=== PATIENT | female | born 1950 | race Caucasian/White ===

== ENCOUNTER 2019-02-16 13:15 | Inpatient (IN) | payer MEDICARE, OTHER ==
[~2019-02-16] VITALS: Ht 165.1 cm; Wt 100.7 kg
[2019-02-16] VITALS (7 sets, daily range): BP systolic 142–178; BP diastolic 59–94
[2019-02-16] MEDS ORDERED: SODIUM CHLORIDE 0.9% 1000ML 1,000 ML IV STA ×3 (13:24→16:31)
[2019-02-16 14:09] LABS: BASOPHILS # (AUTO) 0.1 (0.0-0.1); BASOPHILS % 0.4 % (0.0-1.0); EOSINOPHILS % 0.1 % (0.0-6.0); HEMATOCRIT 46.1 % (34.2-44.1); HEMOGLOBIN 15.5 g/dL (12.0-16.0); LYMPHOCYTES # (AUTO) 1.1 (1.0-3.2); LYMPHOCYTES % 6.7 % (18.0-39.1); MEAN CORPUSCULAR HEMOGLOBIN 28.9 pg (28-32); MEAN CORPUSCULAR HGB CONC 33.6 g/dL (31-35); MONOCYTES # (AUTO) 0.6 (0.2-0.8); MONOCYTES % 3.9 % (4.4-11.3); NEUTROPHILS # (AUTO) 14.2 (2.1-6.9); NEUTROPHILS % 88.3 % (38.7-80.0); RED BLOOD COUNT 5.36 x10e6/uL (3.6-5.1); RED CELL DISTRIBUTION WIDTH 15.1 % (11.7-14.4)
[2019-02-16 14:11] LABS: PLATELET COUNT 60 x10e3/uL (140-360)
[2019-02-16 14:13] LABS: INR 0.86; PROTHROMBIN TIME 12.2 seconds (11.9-14.5)
[2019-02-16 14:14] LABS: PARTIAL THROMBOPLASTIN TIME 24.7 seconds (23.8-35.5)
[2019-02-16 14:16] LABS: BILIRUBIN,URINE NEGATIVE (NEGATIVE); CLARITY,URINE SL CLOUDY (CLEAR); COLOR,URINE YELLOW (YELLOW); KETONES,URINE 1+ (NEGATIVE); LEUKOCYTE ESTERASE ,URINE NEGATIVE (NEGATIVE); NITRITE,URINE NEGATIVE (NEGATIVE); PROTEIN,URINE DIPSTICK TRACE (NEGATIVE); URINE UROBILINOGEN 0.2 mg/dL (0.2 - 1)
[2019-02-16 14:21] LABS: AMPHETAMINES SCREEN,URINE NEGATIVE (NEGATIVE); BENZODIAZEPINES SCREEN,URINE NEGATIVE (NEGATIVE); PHENCYCLIDINE SCREEN,URINE NEGATIVE (NEGATIVE)
[2019-02-16 14:22] LABS: ALBUMIN 3.2 g/dL (3.5-5.0); ANION GAP 20.3 mmol/L (8-16); CALCIUM 9.1 mg/dL (8.4-10.2); CREATININE, SERUM 1.16 mg/dL (0.57-1.11); POTASSIUM 4.3 mmol/L (3.5-5.1)
[2019-02-16 14:28] LABS: CREATINE KINASE MB 3.9 ng/mL (0-5.0)
[2019-02-16 14:30] LABS: BACTERIA,URINE FEW /HPF; EPITHELIAL CELLS,URINE FEW /LPF
[2019-02-16 14:31] LABS: AMORPHOUS SEDIMENT,URINE MODERATE (FEW); HYALINE CASTS 0-1 (0-1)
--- NOTE | 2019-02-16 14:38 | NUR ---
FAMILY AT SIDE AND HAS BEEN UPDATED.
--- NOTE | 2019-02-16 14:41 | NUR ---
TALKED TO CHARLENE IN LAB, SIXTO IS COMING FOR BC, LACTIC AND TYPE AND SCREEN FOR ADDED ON LABS.
[2019-02-16 14:47] LABS: ACETAMINOPHEN < 3 ug/mL (10-30); SALICYLATE < 5.0 mg/dL (0-30)
--- NOTE | 2019-02-16 14:59 | NUR ---
TALKED TO SIXTO IN THE LAB RE B.C./LACTIC/TYPE& SCREEN; WILL BE OVER TO COLLECT. DR. STALLINGS INFORMED
--- NOTE | 2019-02-16 15:22 | Diagnostic Imaging Report ---
EXAMINATION: CHEST SINGLE (PORTABLE) INDICATION: Altered mental status COMPARISON: None FINDINGS: LINES/TUBES:EKG leads overlie the chest. LUNGS:The lungs are moderately inflated. No focal consolidation or pulmonary edema. PLEURA:No pleural effusion or pneumothorax. MEDIASTINUM:The cardiomediastinal silhouette appears normal in size and shape. There is calcification of the coronary arteries, consistent with atherosclerotic disease. Chest BONES/SOFT TISSUES:No acute osseous injury. ABDOMEN:No free air under the diaphragm. IMPRESSION: No focal pneumonia or pulmonary edema. Signed by: Lurdes Leong MD on 02/16/2019 3:19 PM
--- NOTE | 2019-02-16 15:22 | Diagnostic Imaging Report ---
CT BRAIN WO HISTORY: Altered mental status COMPARISON: None. TECHNIQUE: Noncontrast axial scans were obtained from skull base to the vertex. Coronal and sagittal reconstructions obtained from the axial data. One or more of the following dose reduction techniques were used: Automated exposure control, adjustment of the mA and/or kV according to patient size, and/or utilization of iterative reconstruction technique. Beam hardening and motion artifacts obscure some details. DISCUSSION: Scalp/Skull: Unremarkable. Brain sulci: Appropriate for patient's age. Ventricles: Mild to moderate supratentorial ventriculomegaly is slightly out of proportion to sulcal prominence. The fourth ventricle is normal in size and configuration. Extra-axial spaces: No masses or fluid collections. Carotid siphon calcifications are present. Parenchyma: No abnormal densities. No mass, hemorrhage, or large vascular territory acute infarct. Dural sinuses: No abnormal densities. Sellar/Suprasellar region: Intact. Skull base: Intact. Incidental findings: None. IMPRESSION: 1. Mild to moderate supratentorial ventriculomegaly is slightly out of proportion to sulcal prominence. Correlate for communicating hydrocephalus. 2. Otherwise, no acute intracranial abnormalities. Signed by: Dr. Jas Garcia M.D. on 02/16/2019 3:19 PM
[2019-02-16] MEDS: METOPROLOL TARTRATE INJ 1 MG/ML VIAL IV PRN (16:07)
[2019-02-16] MEDS: ASPIRIN 300 MG SUPP PR SCH (16:09)
[2019-02-16] MEDS: PIPER-TAZ 3.375 GM 50 ML IV SCH ×2 (16:09→20:14)
--- NOTE | 2019-02-16 16:10 | NUR ---
DR. KIRK CAME TO SEE THE PT AND UPDATE SPOUSE RE POC/ORDRS
[2019-02-16] MEDS ORDERED: PANTOPRAZOLE 40 MG 10ML VIAL IV STA (16:31)
--- NOTE | 2019-02-16 16:36 | NUR ---
LACTIC 4.2; DR. STALLINGS INFORMED
[2019-02-16] MEDS ORDERED: DEXTROSE 50% SYRINGE 50 ML IV PRN (16:45)
[2019-02-16] MEDS: PANTOPRAZOLE 40 MG 10ML VIAL IV SCH ×2 (17:00→18:44)
--- OUTSIDE RECORDS SUMMARY | 2019-02-16 17:02 | XMS REPORT ---
[facility] Address Unknown Phone Unavailable Care Team Providers Care Precision Lens Technician Name Role Phone Campos STALLINGS Unavailable Unavailable Problems This patient has no known problems. Allergies, Adverse Reactions, Alerts This patient has no known allergies or adverse reactions. Medications This patient has no known medications. Results Test Description Test Time Test Comments Text Results Atomic Results Result Comments CHEST SINGLE (PORTABLE) 2019-02-16 15:18:00 [place] [address] Patient Name: TRAN GUAN MR #: [id number] : 1950 Age/Sex: 68/F Req #: [id number] Adm Physician: Ordered by: TOMAS STALLINGS MD Report #: [id number] Location: ER Room/Bed: Procedure: [id number] DX/CHEST SINGLE (PORTABLE) Exam Date: 02/16/19 Exam Time: 1350 REPORT STATUS: Signed EXAMINATION: CHEST SINGLE (PORTABLE) INDICATI ON: Altered mental status COMPARISON: None FINDINGS: LINES/TUBES:EKG leads overlie the chest. LUNGS:The lungs are moderately inflated. No focal consolidation or pulmonary edema. PLEURA:No pleural effusion or pneumothorax. MEDIASTINUM:The cardiomediastinal silhouette appears normal in size and shape. There is calcification of the coronary arteries, consistent with atherosclerotic disease. Chest BONES/SOFT TISSUES:No acute osseous injury. ABDOMEN:No free air under the diaphragm. IMPRESSION: No focal pneumonia or pulmonary edema. Signed by: Brent Merritt MD on 02/16/2019 3:19 PM Dictated By: BRENT MERRITT MD 18 Transcribed By: KOREY on 02/16/191518 COPY TO: TOMAS STALLINGS MD CT BRAIN WO 2019-02-16 15:16:00 [place] [address] Patient Name: TRAN GUAN MR #: [id number] : 1950 Age/Sex: 68/F Req #: [id number] Adm Physician: Ordered by: TOMAS STALLINGS MD Report #: [id number] Location: ER Room/Bed: Procedure: [id number] CT/CT BRAIN WO Exam Date: 02/16/19 Exam Time: 1350 REPORT STATUS: Signed CT BRAIN WO HISTORY: Altered mental status COMPARISON: None. TECHNIQUE: Noncontrast axial scans were obtained from skull base to the vertex. Coronal and sagittal reconstructions obtained from the axial data. One or more of the following dose reduction techniques were used: Automated exposure control, adjustment of the mA and/or kV according to patient size, and/or utilization of iterative reconstruction technique. Beam hardening and motion artifacts obscure some details. DISCUSSION: Scalp/Skull: Unremarkable. Brain sulci: Appropriate for patient's age. Ventricles: Mild to moderate supratentorial ventriculomegaly is slightly out of proportion to sulcal prominence. The fourth ventricle is normal in size and configuration. Extra-axial spaces: No masses or fluid collections. Carotid siphon calcifications are present. Parenchyma: No abnormal densities. No mass, hemorrhage, or large vascular territory acute infarct. Dural sinuses: No abnormal densities. Sellar/Suprasellar region: Intact. Skull base: Intact. Incidental findings: None. IMPRESSION: 1. Mild to moderate supratentorial ventriculomegaly is slightly out of proportion to sulcal prominence. Correlate for communicating hydrocephalus. 2. Otherwise, no acute intracranial abnormalities. Signed by: Dr. Jas Garcia M.D. on 02/16/2019 3:19 PM Dictated By: JAS GARCIA MD 18 Transcribed By: KOREY on 02/16/191518 COPY TO: TOMAS STALLINGS MD
[2019-02-16] MEDS: SODIUM CHLORIDE 0.9% 1000ML 1,000 ML IV SCH (17:15)
--- NOTE | 2019-02-16 17:35 | Diagnostic Imaging Report ---
EXAM: CT Abdomen and Pelvis WITH intravenous contrast INDICATION: Altered mental status, urinary tract infection, leukocytosis COMPARISON: None. TECHNIQUE: Abdomen and pelvis were scanned utilizing a multidetector helical scanner from the lung base to the pubic symphysis after administration of IV contrast. Coronal and sagittal reformations were obtained. Routine protocol was performed. Scan was performed during portal venous phase. IV CONTRAST: 100mL of Isovue 370 ORAL CONTRAST: Water RADIATION DOSE: Total DLP: 840.7 mGy*cm Dose modulation, iterative reconstruction, and/or weight based adjustment of the mA/kV was utilized to reduce the radiation dose to as low as reasonably achievable. FINDINGS: LOWER THORAX: Normal. HEPATOBILIARY: No focal hepatic lesions. No biliary ductal dilatation status post cholecystectomy. SPLEEN: No splenomegaly. PANCREAS: Diffuse peripancreatic fat stranding most notably at the pancreatic head and uncinate process. No hypoenhancement of pancreatic parenchyma. No focal mass or ductal dilation. No focal fluid collection. ADRENALS: No adrenal nodules. KIDNEYS/URETERS: No hydronephrosis, stones, or solid mass lesions. PELVIC ORGANS/BLADDER: Murillo catheter in the decompressed bladder. PERITONEUM / RETROPERITONEUM: No free air or fluid. LYMPH NODES: No lymphadenopathy. VESSELS: Scattered atherosclerotic calcifications of the nonaneurysmal abdominal aorta and major branches. GI TRACT: Diffuse wall thickening of the cecum and ascending colon with mild adjacent inflammatory changes. No bowel obstruction. BONES AND SOFT TISSUES: No acute osseous injury. No suspicious lytic or blastic lesions. Moderate degenerative changes of the visualized spine. IMPRESSION: Acute pancreatitis with no evidence of parenchymal necrosis or associated fluid collection. Diffuse wall thickening of the ascending colon and cecum compatible with colitis. Signed by: Lurdes Leogn MD on 02/16/2019 5:32 PM
[2019-02-16] MEDS: METRONIDAZOLE 500MG/NS 100ML 100 ML IV SCH (18:42)
[2019-02-16 18:44] LABS: AMYLASE 13 U/L (25-125); LIPASE 10 U/L (8-78)
[2019-02-16] MEDS ORDERED: INFLUENZA VIRUS VAC SPLIT INJ 0.5 ML SYR IM SCH (19:41)
[2019-02-16] MEDS ORDERED: PNEUMOCOCCAL VACCINE POLYVALENT 23 MCG/0.5 ML VIAL IM SCH (19:41)
[2019-02-16] MEDS ORDERED: IOPAMIDOL 370 MG/ML 200 ML INFUS..BTL INJ ONE (20:26)
[2019-02-16] MEDS ORDERED: SODIUM CHLORIDE 0.9% 50ML 50 ML ONE (20:26)
[2019-02-16 20:47] LABS: CREATINE KINASE MB 6.4 ng/mL (0-5.0)
[2019-02-16] MEDS: INSULIN LISPRO 100 UNIT/1 ML 3ML VIAL SQ SCH (21:14)
--- NOTE | 2019-02-16 21:20 | NUR ---
Dr. Brewster paged regarding BG of 412 and pt's agitation. Awaiting call back
[2019-02-16] MEDS ORDERED: LORAZEPAM INJ 2 MG/ML VIAL IV PRN (21:45)
--- NOTE | 2019-02-16 21:50 | NUR ---
Dr. Brewster returned page, new meds ordered see eMAR. Routine consult for Dr. Baig ordered also.
[2019-02-16] MEDS ORDERED: LANTUS 3ML100 UNITS/ SC (21:53)
[2019-02-16] MEDS ORDERED: HUMALOG100 UNIT/3 SC (21:54)
[2019-02-16] MEDS ORDERED: MORPHINE SULFAT30 M2 PO (21:54)
[2019-02-16] MEDS ORDERED: MULTI-VITAMIN1 EACH (21:54)
[2019-02-16] MEDS ORDERED: ASPIR 8181 MG PO (21:54)
[2019-02-16] MEDS ORDERED: LEVOTHYROXINE75 MCG PO (21:54)
[2019-02-16] MEDS ORDERED: MS CONTIN30 MG PO (21:54)
[2019-02-16] MEDS ORDERED: TIZANIDINE HCL4 MG PO (21:54)
[2019-02-16] MEDS ORDERED: AMITRIPTYLINE H50 MG PO (21:54)
[2019-02-16] MEDS ORDERED: TRADJENTA5 MG PO (21:54)
[2019-02-16] MEDS ORDERED: GABAPENTIN400 MG PO (21:54)
[2019-02-16] MEDS ORDERED: HUMALOG100 UNIT/1 SC (21:54)
[2019-02-16] MEDS ORDERED: CYMBALTA30 MG PO (21:54)
[2019-02-16] MEDS: INSULIN GLARGINE 100 UNITS/ML VIAL SQ SCH (21:57)
--- NOTE | 2019-02-16 22:52 | Consultation ---
DATE OF CONSULTATION: 02/16/2019 Cardiology Consultation INDICATION: Abnormal EKG. HISTORY OF PRESENT ILLNESS: Ms. Quevedo is a 68-year-old female, who was brought in by her for altered mental status. She is unable to provide any history. Per her , she has had no cardiac complaints. She had a cardiac evaluation possibly last year [facility], which according to the family was normal. Currently, at the time for admission to the emergency room, she has altered mental status. Temperature 99.1, heart rate 105. EKG shows marked ST depression with a possibility of acute myocardial infarction. I have been consulted to assess the same. Again, the patient is unable to provide any history. She appears to be altered with dehydration, hyperglycemia, and possible sepsis. PAST MEDICAL HISTORY: Listed above. SOCIAL HISTORY: Unobtainable. REVIEW OF SYSTEMS: Unobtainable. ALLERGIES: NO KNOWN DRUG ALLERGIES. PHYSICAL EXAMINATION: VITAL SIGNS: Afebrile, heart rate 101, blood pressure 132/74. CARDIOVASCULAR: Regular rhythm. Systolic murmur. LUNGS: Occasional rhonchi bilaterally. ABDOMEN: Soft. LABORATORY STUDIES: Electrocardiogram shows sinus rhythm with marked ST depression. No evidence for acute myocardial infarction. Creatinine is 1.1, blood sugar 389. Troponin 0.112. BNP 37.5. Hemoglobin is 15.5, WBC count 16,100. Drug screen is negative except for opiates. Brain CT and chest x-ray are pending. ASSESSMENT: Eyy-YO-gnwcdnb elevation myocardial infarction. RECOMMENDATIONS: The patient's cardiac enzymes are negative. However, EKG shows marked ST depression. At this point, beta-kris will be initiated along with an aspirin and statin. Recheck of cardiac enzymes. She will require ischemic evaluation prior to discharge. MD NEHAL Marino/DEEDEE /[id number]
--- NOTE | 2019-02-16 23:02 | History and Physical ---
Covering for Dr. Barrera. HISTORY OF PRESENT ILLNESS: Ms. Laurent is a 68-year-old female. History was obtained through her done at bedside. The patient is confused and unable to give me any history. Apparently, the patient is wheelchair bound. She can walk a little, but she is most of the time in a wheelchair because of her spinal cord injury and she takes morphine for that. She has history of diabetes. As per until yesterday she was doing fine. This morning at 5 in the morning, she started with vomiting, diarrhea, and she started getting confused. The confusion got worse during the morning, so called 911 and she was brought to the emergency room. As per her , she had a similar episode like a year ago with confusion. At that time, she had an infection. PAST MEDICAL HISTORY: She has history of diabetes as per . ALLERGIES: NO KNOWN DRUG ALLERGIES. PAST SURGICAL HISTORY: She had spine and cervical surgery, hysterectomy, and cholecystectomy. SOCIAL HISTORY: She does not smoke and she does not drink. She lives at home with her . MEDICATIONS: The patient is taking morphine for spinal cord injury. PHYSICAL EXAMINATION: GENERAL: Today, she is confused. She screams, she wants somebody to help her. VITAL SIGNS: Temperature is 99.1, blood pressure 132/74. HEART: Regular rate. LUNGS: Poor inspiratory effort. ABDOMEN: Soft. LABORATORY DATA: On the blood work, white count is 16.09, hematocrit 46.1, hemoglobin 15.5. Potassium 4.3, creatinine 1.16, glucose was 398. Opiates came back positive in the toxicology examination. Urine has no blood cells. Urine culture is pending. Head CT shows epjj-al-muevlzut supratentorial ventriculomegaly, slightly out of proportion to sulcal prominence, otherwise no acute findings. Chest x-ray shows no focal pneumonia or pulmonary edema. ASSESSMENT: 1. Vomiting, diarrhea, and leukocytosis. 2. Concerning for sepsis, etiology is not very clear. 3. Abnormal EKG, already seen by Dr. Talley. 4. Diabetes type 2 with hyperglycemia. 5. History of spinal cord injury, on morphine. PLAN: At the present time, she was already seen by heel stainer. We are going to get Infectious Disease consult with Dr. Piper. The patient was started on Zosyn. She is receiving a dose of Zosyn today. We are awaiting for IMCU bed for her. She may need further workup if her mental status does not improve. She is going to need IV fluids. She is going to need aggressive treatment with insulin. The overall prognosis of the patient is guarded. All this was discussed with . All questions were answered to satisfaction. MD RACIEL Menendez/MODL /[id number]
[2019-02-17] VITALS (26 sets, daily range): BP systolic 96–189; BP diastolic 46–104
[2019-02-17] MEDS: METOPROLOL TARTRATE INJ 1 MG/ML VIAL IV PRN ×2 (01:21→21:34)
[2019-02-17] MEDS: PIPER-TAZ 3.375 GM 50 ML IV SCH ×2 (02:10→09:07)
[2019-02-17] MEDS: SODIUM CHLORIDE 0.9% 1000ML 1,000 ML IV SCH ×2 (02:14→19:58)
[2019-02-17 02:33] LABS: CREATINE KINASE MB 4.9 ng/mL (0-5.0)
[2019-02-17 04:59] LABS: BASOPHILS % 0.2 % (0.0-1.0); HEMATOCRIT 47.7 % (34.2-44.1); LYMPHOCYTES # (AUTO) 1.4 (1.0-3.2); LYMPHOCYTES % 6.9 % (18.0-39.1); MEAN CORPUSCULAR HEMOGLOBIN 28.7 pg (28-32); MEAN CORPUSCULAR HGB CONC 33.5 g/dL (31-35); MEAN CORPUSCULAR VOLUME 85.6 fL (81-99); MONOCYTES # (AUTO) 1.1 (0.2-0.8); MONOCYTES % 5.2 % (4.4-11.3); NEUTROPHILS # (AUTO) 17.8 (2.1-6.9); NEUTROPHILS % 86.9 % (38.7-80.0); PLATELET COUNT 58 x10e3/uL (140-360); RED BLOOD COUNT 5.57 x10e6/uL (3.6-5.1); RED CELL DISTRIBUTION WIDTH 15.9 % (11.7-14.4)
[2019-02-17] MEDS: ONDANSETRON HCL INJ 2MG/ML 2ML 2 MG/ML VIAL IV PRN (05:09)
[2019-02-17 05:22] LABS: ALBUMIN 2.5 g/dL (3.5-5.0); ALBUMIN/GLOBULIN RATIO 0.8 (0.8-2.0); ANION GAP 13.6 mmol/L (8-16); CALCIUM 7.8 mg/dL (8.4-10.2); CHOL/HDL RATIO 5.8 (3.0-3.6); CREATININE, SERUM 1.33 mg/dL (0.57-1.11); POTASSIUM 3.6 mmol/L (3.5-5.1)
[2019-02-17] MEDS: INSULIN LISPRO 100 UNIT/1 ML 3ML VIAL SQ SCH (05:42)
[2019-02-17] MEDS: METRONIDAZOLE 500MG/NS 100ML 100 ML IV SCH ×4 (05:47→17:54)
[2019-02-17] MEDS ORDERED: ACETAMINOPHEN 1000 MG/100 ML IV PRN (06:00)
[2019-02-17] MEDS ORDERED: ACETAMINOPHEN 1000 MG/100 ML 100 ML IV ONE (06:09)
--- NOTE | 2019-02-17 06:11 | NUR ---
Spoke to Dr. Brewster regarding pt's temp of 103.2 and critical blood sugar level. Insulin gtt, IV tylenol ordered. Ordered to notify Dr. Piper and consult Dr. Vernon Anderson for acute pancreatitis.
--- NOTE | 2019-02-17 06:17 | NUR ---
06:[address] Piper. Awaiting call back. 06:[address] Vernon Anderson 06:[address] Baig
[2019-02-17] MEDS: INSULIN REGULAR, HUMAN 3ML VL 100 UNIT in SODIUM CHLORIDE 0.9% 100 ML 100 ML IV SCH ×2 (06:30)
[2019-02-17] MEDS ORDERED: HEPARIN SOD (PORCINE) 5,000 UNIT/ML VIAL SC SCH (09:00)
[2019-02-17] MEDS: ASPIRIN 300 MG SUPP PR SCH (09:07)
[2019-02-17] MEDS: PANTOPRAZOLE 40 MG 10ML VIAL IV SCH ×2 (09:07→17:59)
[2019-02-17 09:53] LABS: ABG HCO3 17 mmol/L (23-28); ABG PCO2 23 mmHg (41-51); ABG PH 7.49 (7.31-7.41); ABG PO2 72 mmHg (80-105)
[2019-02-17 10:07] LABS: AMYLASE 19 U/L (25-125); LIPASE 21 U/L (8-78)
--- NOTE | 2019-02-17 10:09 | Progress Note ---
DATE: 02/17/2019 Cardiology Progress Note SUBJECTIVE: Cannot obtain review of systems as the patient is confused with her eyes closed, moaning in bed, no acute events. OBJECTIVE: VITAL SIGNS: Temperature is 103.3, heart rate is 114, blood pressure is 164/81, respirations are 25, oxygen saturation is 95% on room air. GENERAL: She is an ill-appearing woman, who is agitated and moaning. CARDIOVASCULAR: She is tachycardic. No murmurs. Regular rhythm. LUNGS: Clear to auscultation. ABDOMEN: Soft, mildly distended, nontender. EXTREMITIES: Trace edema. CARDIOVASCULAR MEDICATIONS: Reviewed. LABORATORY DATA: Reviewed. White blood cell count is 20, hemoglobin is 16, creatinine is 1.3, glucose is 466. Lactic acid is 2.9. Troponin is 0.128. Triglycerides are 207. IMPRESSION: 1. Abnormal electrocardiogram. 2. Leukocytosis. 3. Sepsis. 4. Acute kidney injury. 5. Hyperglycemia with acidosis. 6. Lactic acidosis. 7. Hyperlipidemia. 8. Altered mental status. RECOMMENDATIONS: From a cardiovascular standpoint we will check a 2D echocardiogram once her heart rate is better controlled. Continue sepsis and infectious treatment per primary team. We will need better glucose control. The patient likely will need an ischemic evaluation when she is more stable. Inderjit Hoffmann DO BM/MODL /[id number]
[2019-02-17 10:14] LABS: CREATINE KINASE MB 2.6 ng/mL (0-5.0)
--- NOTE | 2019-02-17 11:17 | Diagnostic Imaging Report ---
Chest, 1 view, 02/17/2019. History: PICC placement. Comparison: 02/16/2019. Findings: The cardiomediastinal silhouette and pulmonary vasculature are within normal limits for a portable exam. There is no focal consolidation or pleural effusion. A new right upper extremity PICC terminates near the cavoatrial junction. Cervical fusion hardware is again noted. There are no acute osseous or soft tissue abnormalities. Impression: No acute cardiopulmonary abnormality. Right upper extremity PICC in adequate position. Signed by: Joe Antony on 02/17/2019 11:14 AM
--- NOTE | 2019-02-17 11:18 | NUR ---
PICC line placed and verified. Dr Piper to bedside conversing with patient's .
--- NOTE | 2019-02-17 11:50 | Progress Note ---
DATE: 02/17/2019 SUBJECTIVE: Ms. Quevedo is a 68-year-old female with history of diabetes, wheelchair bound due to spinal cord injury where she is using morphine for the pain. As per yesterday morning at 5:00 in the morning, she started with vomiting and diarrhea and started getting confused, so called the ambulance and she was brought to the emergency room. PHYSICAL EXAMINATION: GENERAL: Today, she is still confused like yesterday. She is not following any commands. She is screaming for help. VITAL SIGNS: Temperature is 103.3, blood pressure is 164/81. HEART: Regular rate. LUNGS: Poor inspiratory effort. ABDOMEN: Soft. EXTREMITIES: Lower extremity mild edema. LABORATORY DATA: On the blood work white count went up to 20.51, hemoglobin 16, hematocrit is 47.7. Glucose 396, this morning 456. Lactic acid is 2.9. Toxicology was positive for opiates. Blood cultures and urine culture so far no growth. Blood cultures are pending. Chest x-ray did not find any acute findings and head CT either. Abdominal and pelvic CT shows acute pancreatitis with no evidence of parenchymal necrosis or associated fluid collection. Diffuse wall thickening of the ascending colon and cecum compatible with colitis. ASSESSMENT: 1. Sepsis secondary to acute pancreatitis. 2. Colitis. 3. Diabetes type 2 with hypoglycemia. 4. History of spinal cord injury. 5. Altered mental status due to metabolic encephalopathy. PLAN: The plan at present time is to keep the patient n.p.o., IV fluids. She was started on insulin drip. She is on broad-spectrum IV antibiotics. She is ICU status. Consult was requested with Critical Care, GI and Infectious Disease. Continue to monitor mental status. Continue to monitor electrolytes and white count as well as blood sugar checkups. The overall prognosis of the patient is guarded. All this was discussed with at bedside. All questions were answered to satisfaction. I spent more than 35 minutes examining patient, reviewing overnight event, lab results, x-rays and discussing the plan of care with her at bedside. MD RACIEL Menendez/MODL /[id number]
--- NOTE | 2019-02-17 12:25 | Consultation ---
DATE OF CONSULTATION: 02/17/2019 REASON FOR CONSULTATION: Altered mental status and fever. HISTORY OF PRESENT ILLNESS: This patient, who is a 68-year-old female, who was brought in by her with altered mental status. Her unfortunately is not here. I was asked to see her urgently. I came to see her within the hour I received the phone call. The patient is currently confused. Does not provide any meaningful information, but with fever. According to the record, she came with altered mental status. She had temperature of 99.1 and heart rate 105. EKG showed ST depression with possibility of acute myocardial infarction. Cardiology seen the patient and she was diagnosed with sca-ND-kyexmoo elevation with myocardial infarction. Apparently, she was fine till yesterday. She can walk a little, but she needs a wheelchair because she had spinal cord injury. She takes morphine. She was doing fine till yesterday until 5 in the morning when she vomited, diarrhea, became confused, and brought here. PAST MEDICAL HISTORY: Cervical spine surgery, hysterectomy, cholecystectomy, and diabetes mellitus. PAST SURGICAL HISTORY: As above. ALLERGIES: NKA. SOCIAL HISTORY: No smoking, drug abuse, or alcohol abuse. FAMILY HISTORY: Could not be obtained. REVIEW OF SYSTEMS: Could not be obtained. Confused. There is no vomiting since she came here. I reviewed all the notes. LABORATORY DATA: Also all reviewed. Her blood culture is still pending. Her urine culture is still pending. Her white count on admission was 16.09 came up to 20.5, hemoglobin 15, and hematocrit 46. Her sodium is 139, potassium 3.6, chloride 111, her creatinine 1.33, and her glucose 466. Lactic acid 2.09. MEDICATION LIST: She is currently on aspirin, piperacillin/tazobactam, acetaminophen, and IV metronidazole. She had the CT of the abdomen and pelvis, which showed acute pancreatitis, but no evidence of piecemeal necrosis. Diffuse wall thickening of the ascending colon compatible with colitis. She had CT of the brain showed possibility communicating hydrocephalus, doom-he-wkzqlfkl. Chest x-ray was no infiltrate. PHYSICAL EXAMINATION: GENERAL: She is confused. VITAL SIGNS: Stable. Temperature 103.2. HEENT: Normocephalic. Not icteric. NECK: Supple. CHEST: Few crackles bilateral. HEART: S1 and S2 with no murmurs. ABDOMEN: Soft. Bowel sounds present. No tenderness. EXTREMITIES: No edema. SKIN: No rash. IMPRESSION: 1. Sepsis. 2. Altered mental status with fever. While this could be due to sepsis, the possibility of encephalitis/meningitis need to be ruled out. Recommend to do stat LP. 3. Myocardial infarction, on admission, could be due to the stress of all the sepsis. 4. Pancreatitis. 5. Colitis. I would recommend to put the patient on Rocephin 1 g q.12, vancomycin 1 g q.12, acyclovir, and ampicillin. Obtain blood cultures. Obtain urine cultures. Obtain LP. We will send for cell count and differential, protein, glucose, herpes simplex by PCR, culture sensitivity, bacterial antigen, and viral PCR if possible. Recheck CBC. Recheck chem panel. Recheck amylase and lipase. N.p.o. Supportive care. We will follow with you. MD AMANDA Perez/DEEDEE /[id number]
[2019-02-17] MEDS ORDERED: LIDOCAINE HCL 1% LOCAL INJ 20 ML VIAL ONE (12:29)
[2019-02-17] MEDS ORDERED: ACYCLOVIR SODIUM INJ 500 MG in SODIUM CHLORIDE 0.9% 100 ML IV ONE (13:00)
[2019-02-17] MEDS: CEFTRIAXONE SOD 2 GM/NS 100 ML 100 ML IV SCH ×2 (13:28→23:02)
[2019-02-17] MEDS ORDERED: LORAZEPAM INJ 2 MG/ML VIAL IV ONE (13:50)
[2019-02-17] MEDS: AMPICILLIN SOD 2 GM/NS 100ML 100 ML IV SCH ×2 (13:54→18:13)
[2019-02-17] MEDS ORDERED: ACYCLOVIR SODIUM 750 MG in SODIUM CHLORIDE 0.9% 250ML 250 ML IV SCH (14:00)
--- NOTE | 2019-02-17 14:10 | Diagnostic Imaging Report ---
Fluoroscopic-guided lumbar puncture. History: Altered mental status. Switchboard Receptionist: Dr. Antony. Medication: None. Anesthesia: 5 cc of 1% lidocaine without epinephrine. Contrast: None. Fluoro time: 0.25 min. Dose: 54.4 mGy (EZEQUIEL) Specimen: 3.5 cc of bloody CSF. Discussion: Procedure was limited due to patient inability to remain immobile. After informed consent was obtained, the patient's back was prepped and draped in a sterile fashion. The skin was anesthetized with 1% lidocaine without epinephrine. Using fluoroscopic guidance, a 22 gauge 3.5 inch long spinal needle was advanced into the spinal canal at the level of L5-S1. Bloody slightly clearing CSF was visualized and obtained and sent to the laboratory for studies. Only a small amount of fluid could be obtained before the patient dislodged the needle with constant motion. Repeat entry into the thecal sac could not be obtained. IMPRESSION: Limited fluoroscopic guided LP. Signed by: Joe Antony on 02/17/2019 2:06 PM
[2019-02-17 14:57] LABS: TOTAL PROTEIN,CSF 357.9 mg/dL (15-40)
--- NOTE | 2019-02-17 15:47 | Consultation ---
DATE OF CONSULTATION: 02/17/2019 Pulmonary Consultation The patient of Dr. Barrera, Dr. Brewster, Dr. Scotty Anderson, Dr. Piper, and Dr. Baig. HISTORY OF PRESENT ILLNESS: Unfortunate 68-year-old diabetic, admitted with vomiting and diarrhea, altered mental status. She became febrile in the hospital as high as 103.3. She has a history of peripheral neuropathy, history of a spinal cord injury in 1998 related to surgical procedure according to . She has been diabetic for 5 years. Has had heel ulcers in the past, which have healed. She has a history of gastroesophageal reflux. 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 She is a well-developed white female, moaning, not interactive. ALLERGIES: NO KNOWN ALLERGIES. MEDICATIONS: Include aspirin, insulin, duloxetine, gabapentin, Levoxyl, morphine, multivitamins, tizanidine, Elavil, and Tradjenta. PAST SURGICAL HISTORY: She has had appendectomy, gallbladder surgery, hysterectomy, back surgery, and breast biopsy. SOCIAL HISTORY: Nonsmoker. 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 FAMILY HISTORY: Positive for coronary artery disease and diabetes. PHYSICAL EXAMINATION: VITAL SIGNS: Blood pressure 164/80, temperature 103.3, pulse 115, and respirations 21. GENERAL: Confused and moaning. NECK: Supple. LUNGS: Clear. HEART: Regular rhythm. ABDOMEN: Tender in the right upper quadrant. EXTREMITIES: Nonedematous. IMPRESSION: Pancreatitis, colitis, possible ischemic gut, possible toxicity to unknown Indian group, which she takes for weight loss, which has caused diarrhea. Born in [place]. Lives all life in [place]. No foreign travel recently. We will check stool studies. This discussed was with ID. Repeat pancreatic enzymes, which were normal though. CT of the abdomen suggested pancreatitis and colitis. There is no discussion of pancreatic necrosis. Chest x-ray appears clear. CT suggested possibility of normal pressure hydrocephalus. Neurology opinion is pending. Cecum and ascending colon, suggestion of inflammation consistent with colitis. Thank you for this kind referral. MD VIOLETA Art/MODL /[id number]
[2019-02-17] MEDS: VANCOMYCIN 1GM/NS 250 ML 250 ML IV SCH (16:03)
[2019-02-17] MEDS: ACYCLOVIR 200 MG CAP PO SCH ×2 (17:00→19:55)
[2019-02-17] MEDS ORDERED: SODIUM CHLORIDE 0.9% 1000ML 1,000 ML ONE (19:00)
[2019-02-17] MEDS ORDERED: ZIPRASIDONE 20 MG VIAL IM PRN ×2 (19:30→22:30)
[2019-02-17] MEDS ORDERED: WATER STERILE 10 ML VIAL INJ PRN (19:45)
[2019-02-17] MEDS: INSULIN GLARGINE 100 UNITS/ML VIAL SQ SCH (19:55)
--- NOTE | 2019-02-17 20:10 | NUR ---
Page out to Dr. Piper regarding LP, awaiting call back
[2019-02-17] MEDS: ACYCLOVIR SODIUM IV SCH (21:32)
[2019-02-17] MEDS: SODIUM CHLORIDE 0.9% IV SCH (21:32)
--- NOTE | 2019-02-17 22:39 | NUR ---
Dr. Piper returned page, ordered to repeat LP in am and see if Dr. Baig would perform it. If not, consult interventional radiology.
[2019-02-18] VITALS (19 sets, daily range): BP systolic 124–181; BP diastolic 44–104
[2019-02-18] MEDS: ONDANSETRON HCL INJ 2MG/ML 2ML 2 MG/ML VIAL IV PRN (00:15)
[2019-02-18] MEDS: METRONIDAZOLE 500MG/NS 100ML 100 ML IV SCH ×4 (00:15→19:15)
[2019-02-18] MEDS: AMPICILLIN SOD 2 GM/NS 100ML 100 ML IV SCH ×5 (00:15→23:46)
[2019-02-18] MEDS: VANCOMYCIN 1GM/NS 250 ML 250 ML IV SCH ×2 (02:39→16:00)
[2019-02-18] MEDS: INSULIN REGULAR, HUMAN 3ML VL 100 UNIT in SODIUM CHLORIDE 0.9% 100 ML 100 ML IV SCH ×2 (04:02)
[2019-02-18] MEDS: ACYCLOVIR 200 MG CAP PO SCH ×5 (04:25→20:16)
[2019-02-18 05:26] LABS: BASOPHILS % 0.2 % (0.0-1.0); EOSINOPHILS # (AUTO) 0.1 (0.0-0.4); EOSINOPHILS % 0.4 % (0.0-6.0); HEMATOCRIT 36.7 % (34.2-44.1); LYMPHOCYTES # (AUTO) 1.6 (1.0-3.2); LYMPHOCYTES % 9.2 % (18.0-39.1); MEAN CORPUSCULAR HEMOGLOBIN 28.5 pg (28-32); MEAN CORPUSCULAR HGB CONC 32.4 g/dL (31-35); MEAN CORPUSCULAR VOLUME 87.8 fL (81-99); MONOCYTES # (AUTO) 1.1 (0.2-0.8); MONOCYTES % 6.4 % (4.4-11.3); NEUTROPHILS # (AUTO) 14.8 (2.1-6.9); NEUTROPHILS % 83.2 % (38.7-80.0); PLATELET COUNT 51 x10e3/uL (140-360); RED BLOOD COUNT 4.18 x10e6/uL (3.6-5.1); RED CELL DISTRIBUTION WIDTH 16.5 % (11.7-14.4)
[2019-02-18 05:27] LABS: HEMOGLOBIN 11.9 g/dL (12.0-16.0)
[2019-02-18] MEDS: ACYCLOVIR SODIUM IV SCH ×3 (05:30→20:39)
[2019-02-18] MEDS: SODIUM CHLORIDE 0.9% IV SCH ×3 (05:30→20:39)
[2019-02-18 05:42] LABS: INR 1.08; PROTHROMBIN TIME 14.5 seconds (11.9-14.5)
[2019-02-18 05:43] LABS: PARTIAL THROMBOPLASTIN TIME 26.4 seconds (23.8-35.5)
[2019-02-18 05:51] LABS: AMYLASE 27 U/L (25-125); LIPASE 38 U/L (8-78)
[2019-02-18 05:53] LABS: ALBUMIN 2.4 g/dL (3.5-5.0); ALBUMIN/GLOBULIN RATIO 0.9 (0.8-2.0); CREATININE, SERUM 1.08 mg/dL (0.57-1.11)
[2019-02-18] MEDS: SODIUM CHLORIDE 0.9% 1000ML 1,000 ML IV SCH (06:26)
[2019-02-18 06:29] LABS: ANION GAP 15.4 mmol/L (8-16)
[2019-02-18 06:31] LABS: POTASSIUM 2.4 mmol/L (3.5-5.1)
--- NOTE | 2019-02-18 06:36 | NUR ---
Page out to Dr. Brewster regarding critical potassium. Awaiting call back.
[2019-02-18] MEDS: WATER STERILE 10 ML VIAL INJ PRN ×2 (07:31→13:30)
[2019-02-18] MEDS: LORAZEPAM INJ 2 MG/ML VIAL IV PRN ×2 (07:31→13:30)
[2019-02-18] MEDS: ZIPRASIDONE 20 MG VIAL IM PRN ×2 (07:31→13:30)
--- NOTE | 2019-02-18 07:55 | NUR ---
Paged Dr. Maier about potassium level
[2019-02-18 08:43] LABS: WBC,FECAL (FECAL LACTOFERRIN) POSITIVE (NEGATIVE)
[2019-02-18 10:41] LABS: C DIFFICILE TOXIN A&B AMP PROB NEGATIVE (NEGATIVE)
[2019-02-18] MEDS: ASPIRIN 300 MG SUPP PR SCH (10:44)
[2019-02-18] MEDS: PANTOPRAZOLE 40 MG 10ML VIAL IV SCH ×2 (10:45→18:29)
[2019-02-18] MEDS ORDERED: POTASSIUM CHLORIDE 20MEQ/100ML 200 ML IV ONE (11:15)
[2019-02-18] MEDS ORDERED: DEXMEDETOMIDINE HCL 200 MCG in SODIUM CHLORIDE 0.9% 50ML 48 ML IV PRN (11:15)
[2019-02-18] MEDS: DEXMEDETOMIDINE 200MCG/NS 50ML 50 ML IV PRN ×3 (11:25→18:14)
[2019-02-18] MEDS: D5.45%NS/KCL 20MEQ 1,000 ML IV SCH ×2 (12:39→22:11)
[2019-02-18] MEDS: CEFTRIAXONE SOD 2 GM/NS 100 ML 100 ML IV SCH ×2 (12:40→23:05)
[2019-02-18] MEDS ORDERED: POTASSIUM CHLORIDE 20MEQ/100ML 300 ML IV ONE (14:15)
--- NOTE | 2019-02-18 14:48 | Progress Note ---
DATE: 02/18/2019 Cardiology Progress Note SUBJECTIVE: Remains very confused and somnolent, unresponsive. OBJECTIVE: VITAL SIGNS: Temperature afebrile, pulse 83, respiratory rate 23, blood pressure 156/76, saturating 96% on room air. GENERAL: Middle-aged female, confused and somnolent. CARDIOVASCULAR: Regular rate and rhythm. No murmurs, rubs, or gallops. LUNGS: Clear to auscultation anteriorly. ABDOMEN: Soft, nontender, nondistended. NEURO AND PSYCH: Alert and oriented to person, place, and time. Normal affect. INPATIENT MEDICATIONS: Reviewed. LABORATORY DATA: Reviewed. Potassium was 2.4, being replaced. TELEMETRY DATA: Reviewed shows normal sinus rhythm. ASSESSMENT AND PLAN: 1. Abnormal EKG concerning for ischemia. 2. Leukocytosis. 3. Altered mental status. 4. Sepsis. 5. Acute kidney injury. 6. Hyperglycemia. 7. Diabetic ketoacidosis. RECOMMENDATIONS: Echocardiogram shows preserved LV ejection fraction, though poor quality study, so remains very altered and acutely ill. Once her acute medical issues resolve, recommend doing a stress test and just prior to discharge. Thank you for this consult. We will continue to follow. MD BENNY Haile/DEEDEE /[id number]
--- NOTE | 2019-02-18 15:52 | Progress Note ---
DATE: 02/18/2019 Internal Medicine Progress Note SUBJECTIVE: The patient came here with change in mental status. Still confused, unable to follow commands. CT of the head showed no significant abnormality except for possible hydrocephalus. Lumbar spine culture, blood culture, urine cultures are negative so far. She was empirically started IV antibiotics in the meantime, she had some episode of diarrhea, stool has been sent for C. difficile. PHYSICAL EXAMINATION: VITAL SIGNS: Blood pressure 157/90, temperature 98.5, heart rate is 87 per minute, respiratory rate is 22 per minute, and oxygen saturation 98%. HEART: Showed regular rhythm. Normal S1, S2 sound. LUNGS: Clear bilaterally. ABDOMEN: Soft. EXTREMITIES: Show no evidence of cyanosis or hematoma. LABORATORY DATA: The last blood work show a BMP; sodium 148, potassium 2.4, chloride 115, CO2 of 20, BUN 19, creatinine 1.08, glucose 308. On CBC, white blood count 17,700, hemoglobin 11.9, hematocrit 36.7, and platelet count 51,000. PT 14.5, INR 1.08, PTT 26.4. AST 20, ALT 29, total bilirubin 0.4, alkaline phosphatase 113. Chest x-ray is negative, also blood culture, urine culture, CSF cultures are negative. FINAL IMPRESSION: 1. Acute encephalopathy. 2. Diabetes ketoacidosis. 3. Acute pancreatitis. 4. Leukocytosis. 5. Sepsis. 6. Hypothyroidism. PLAN OF TREATMENT: We are going to continue with the metronidazole. Continue insulin drip. Continue ceftriaxone q.12 hours. Continue ampicillin q.6 hours. Continue aspirin 300 mg daily, Protonix 40 mg twice a day, acyclovir 800 mg five times a day, vancomycin 1 g IV twice a day, metoprolol 5 mg IV q.8 hours as needed for tachycardia. She got influenza vaccine. Continue lorazepam 0.5 mg q.6 hours as needed, acyclovir q.8 hours. Continue with sodium chloride at 75 mL an hour. Continue with Lantus 40 units at bedtime, Zyprexa 10 mg q.6 hours as needed. We are going to consult Dr. Luna for Endocrinology because of DKA. Dr. Carisa Baig, for Neurology, seen the patient. Dr. Piper for Infectious Disease, seen the patient. Dr. Eladio Talley from Cardiology, seen the patient. Cardiac enzymes are negative. Dr. Luis Antonio Anderson, seen the patient from the Gastroenterology point of view because of pancreatitis. Time spent around 55 minutes. Case was discussed with the nurse at the bedside. Labs have been reviewed. Systems Accountant reports have been reviewed. MD DANIEL Marmolejo/DEEDEE /[id number]
[2019-02-18 18:23] LABS: ALANINE AMINOTRANSFERASE 28 IU/L (0-55); ALBUMIN 2.2 g/dL (3.5-5.0); ALBUMIN/GLOBULIN RATIO 0.9 (0.8-2.0); ALKALINE PHOSPHATASE 94 IU/L (40-150); ANION GAP 11.6 mmol/L (8-16); BLOOD UREA NITROGEN 15 mg/dL (7-26); BUN/CREATININE RATIO 17 (6-25); CARBON DIOXIDE 24 mmol/L (22-29); CHLORIDE 116 mmol/L (98-107); EST GLOMERULAR FILTRATION RATE > 60 ML/MIN (60-); GLUCOSE 189 mg/dL (74-118); SODIUM 149 mmol/L (136-145)
[2019-02-18 18:29] LABS: CALCIUM 6.8 mg/dL (8.4-10.2); POTASSIUM 2.6 mmol/L (3.5-5.1)
[2019-02-18] MEDS: INSULIN GLARGINE 100 UNITS/ML VIAL SQ SCH (20:16)
--- NOTE | 2019-02-18 22:32 | NUR ---
Dr. Piper called unit, ordered to put in IR consult for tomorrow AM since LP was not done today.
[2019-02-19] VITALS (26 sets, daily range): BP systolic 113–189; BP diastolic 38–93
[2019-02-19] MEDS: METRONIDAZOLE 500MG/NS 100ML 100 ML IV SCH ×4 (00:04→18:00)
[2019-02-19] MEDS: DEXMEDETOMIDINE 200MCG/NS 50ML 50 ML IV PRN (01:42)
[2019-02-19] MEDS: VANCOMYCIN 1GM/NS 250 ML 250 ML IV SCH ×2 (02:34→20:40)
[2019-02-19] MEDS: ACYCLOVIR 200 MG CAP PO SCH ×2 (04:11→09:00)
[2019-02-19] MEDS: AMPICILLIN SOD 2 GM/NS 100ML 100 ML IV SCH ×3 (05:22→18:00)
[2019-02-19] MEDS: SODIUM CHLORIDE 0.9% IV SCH (06:00)
[2019-02-19] MEDS: ACYCLOVIR SODIUM IV SCH (06:00)
[2019-02-19 06:11] LABS: BASOPHILS % 0.3 % (0.0-1.0); EOSINOPHILS % 0.3 % (0.0-6.0); HEMATOCRIT 32.4 % (34.2-44.1); HEMOGLOBIN 10.7 g/dL (12.0-16.0); LYMPHOCYTES # (AUTO) 1.6 (1.0-3.2); LYMPHOCYTES % 13.9 % (18.0-39.1); MEAN CORPUSCULAR HEMOGLOBIN 29.1 pg (28-32); MONOCYTES # (AUTO) 0.7 (0.2-0.8); MONOCYTES % 5.7 % (4.4-11.3); NEUTROPHILS # (AUTO) 9.3 (2.1-6.9); NEUTROPHILS % 79.4 % (38.7-80.0); PLATELET COUNT 65 x10e3/uL (140-360); RED BLOOD COUNT 3.68 x10e6/uL (3.6-5.1); RED CELL DISTRIBUTION WIDTH 16.5 % (11.7-14.4)
--- NOTE | 2019-02-19 06:33 | NUR ---
Message left with Dr. Luna's answering service regarding consult.
[2019-02-19 06:41] LABS: BLOOD UREA NITROGEN 12 mg/dL (7-26); BUN/CREATININE RATIO 13 (6-25); CREATININE, SERUM 0.92 mg/dL (0.57-1.11); EST GLOMERULAR FILTRATION RATE > 60 ML/MIN (60-); GLUCOSE 170 mg/dL (74-118)
[2019-02-19 07:03] LABS: ANION GAP 10.9 mmol/L (8-16); CARBON DIOXIDE 24 mmol/L (22-29); CHLORIDE 115 mmol/L (98-107); SODIUM 147 mmol/L (136-145)
[2019-02-19 07:06] LABS: POTASSIUM 2.9 mmol/L (3.5-5.1)
[2019-02-19] MEDS: ASPIRIN 300 MG SUPP PR SCH (09:00)
[2019-02-19] MEDS: PANTOPRAZOLE 40 MG 10ML VIAL IV SCH ×2 (09:00→17:00)
[2019-02-19] MEDS: D5.45%NS/KCL 20MEQ 1,000 ML IV SCH ×2 (09:05→19:05)
[2019-02-19] MEDS ORDERED: POTASSIUM CHLORIDE 20 MEQ TAB CR PO ONE (10:00)
[2019-02-19] MEDS: ONDANSETRON HCL INJ 2MG/ML 2ML 2 MG/ML VIAL IV PRN ×2 (10:52→18:10)
[2019-02-19 11:27] LABS: AMYLASE 25 U/L (25-125); LIPASE 39 U/L (8-78)
[2019-02-19] MEDS: CEFTRIAXONE SOD 2 GM/NS 100 ML 100 ML IV SCH ×2 (11:30→23:30)
[2019-02-19] MEDS: ACYCLOVIR SODIUM 750 MG in SODIUM CHLORIDE 0.9% 250ML 250 ML IV SCH ×2 (14:00→22:58)
--- NOTE | 2019-02-19 14:46 | Progress Note ---
DATE: 02/19/2019 Internal Medicine Progress Note SUBJECTIVE: The patient is doing much better, much more alert and awake today with no fever. PHYSICAL EXAMINATION: VITAL SIGNS: Blood pressure 137/38, temperature 98.5, heart rate 78 per minute, respiratory rate 19 per minute, oxygen saturation is 98%. HEART: Showed regular rhythm. Normal S1, S2 sound. LUNGS: Clear bilaterally. ABDOMEN: Soft. NECK: Supple. LABORATORY DATA: On the BMP; sodium 147, potassium 2.9, chloride 115, CO2 of 24, BUN 12, creatinine 0.82, glucose 170. On CBC; white blood count 11,700, hemoglobin 10.7, hematocrit 32.4, platelet count 65,000. PT 14.5, INR 1.08, PTT 26.4. AST 26, ALT 28, total bilirubin 0.3, alkaline phosphatase 94. CT of the abdomen showed colitis and pancreatitis. Blood cultures, urine culture completely negative. The patient and the family refused a lumbar puncture, so we cannot make any diagnostic testing from that. The patient is to rule out meningitis. FINAL IMPRESSION: 1. Acute encephalopathy, rule out meningitis. 2. Diabetic ketoacidosis. 3. Acute pancreatitis. 4. Leukocytosis. 5. Sepsis. 6. Diarrhea. 7. Hypothyroidism. 8. Colitis. PLAN OF TREATMENT: Continue broad-spectrum antibiotics with metronidazole, ceftriaxone, ampicillin, vancomycin, acyclovir. Continue with IV fluids at 100 mL an hour. Continue with Lantus 40 units at bedtime. Continue Ziprasidone 10 mg q.6 hours, aspirin 300 mg daily, Protonix 40 mg twice a day, acyclovir 800 mg three times a day. Continue metoprolol 5 mg q.8 hours as needed. Continue lorazepam 0.5 mg q.6 hours as needed. Continue dexmedetomidine as needed. Continue with diet as tolerated. Potassium has been replaced because of hypokalemia. We are going to recheck potassium and magnesium levels later on. The patient is doing a lot better. We also asked for speech therapy evaluation to see the patient. Case has been discussed with the nurse and the patient at bedside. Time spent, 55 minutes. MD DANIEL Marmolejo/DEEDEE /[id number]
[2019-02-19] MEDS ORDERED: POTASSIUM CHLORIDE 20MEQ/100ML 200 ML IV ONE ×2 (16:30→21:00)
--- NOTE | 2019-02-19 16:34 | Diagnostic Imaging Report ---
PROCEDURE: X-RAY MODIFIED BARIUM SWALLOW COMPARISON: None. INDICATION: Aspiration Radiation Details: Fluoroscopy time: 1.9 minutes Cumulative dose: 7.4 mGy DISCUSSION: Fluoroscopic examination was performed in conjunction with speech pathology during swallowing a variety of thin and thick liquid consistencies. Provided images demonstrate both laryngeal penetration and aspiration. CONCLUSION: Modified barium swallow demonstrating both laryngeal penetration and aspiration. Please refer to the speech pathology report for further details. Signed by: Lurdes Leong MD on 02/19/2019 4:30 PM
[2019-02-19] MEDS ORDERED: MORPHINE SULFATE 30 MG TAB ER PO PRN (16:45)
[2019-02-19] MEDS: MORPHINE SULFATE 15MG TAB CR PO SCH (22:58)
[2019-02-20] VITALS (25 sets, daily range): BP systolic 146–193; BP diastolic 54–79
[2019-02-20] MEDS: METRONIDAZOLE 500MG/NS 100ML 100 ML IV SCH ×5 (00:48→23:26)
[2019-02-20] MEDS: AMPICILLIN SOD 2 GM/NS 100ML 100 ML IV SCH ×3 (00:48→11:29)
[2019-02-20] MEDS: VANCOMYCIN 1GM/NS 250 ML 250 ML IV SCH (02:53)
[2019-02-20 05:02] LABS: BASOPHILS # (AUTO) 0.1 (0.0-0.1); BASOPHILS % 0.7 % (0.0-1.0); EOSINOPHILS # (AUTO) 0.1 (0.0-0.4); EOSINOPHILS % 1.3 % (0.0-6.0); HEMOGLOBIN 9.8 g/dL (12.0-16.0); LYMPHOCYTES # (AUTO) 1.9 (1.0-3.2); LYMPHOCYTES % 20.2 % (18.0-39.1); MEAN CORPUSCULAR HEMOGLOBIN 29.3 pg (28-32); MEAN CORPUSCULAR HGB CONC 32.7 g/dL (31-35); MEAN CORPUSCULAR VOLUME 89.6 fL (81-99); MONOCYTES # (AUTO) 0.5 (0.2-0.8); MONOCYTES % 5.6 % (4.4-11.3); NEUTROPHILS # (AUTO) 6.6 (2.1-6.9); NEUTROPHILS % 71.7 % (38.7-80.0); PLATELET COUNT 77 x10e3/uL (140-360); RED BLOOD COUNT 3.35 x10e6/uL (3.6-5.1); RED CELL DISTRIBUTION WIDTH 16.8 % (11.7-14.4)
[2019-02-20] MEDS: D5.45%NS/KCL 20MEQ 1,000 ML IV SCH ×2 (05:08→11:55)
[2019-02-20 05:21] LABS: ANION GAP 10.8 mmol/L (8-16); BLOOD UREA NITROGEN 7 mg/dL (7-26); BUN/CREATININE RATIO 8 (6-25); CARBON DIOXIDE 24 mmol/L (22-29); CHLORIDE 112 mmol/L (98-107); CREATININE, SERUM 0.83 mg/dL (0.57-1.11); EST GLOMERULAR FILTRATION RATE > 60 ML/MIN (60-); GLUCOSE 212 mg/dL (74-118); POTASSIUM 3.8 mmol/L (3.5-5.1); SODIUM 143 mmol/L (136-145)
[2019-02-20 05:34] LABS: CALCIUM 6.4 mg/dL (8.4-10.2)
[2019-02-20] MEDS: ONDANSETRON HCL INJ 2MG/ML 2ML 2 MG/ML VIAL IV PRN ×4 (05:43→21:43)
[2019-02-20] MEDS: MORPHINE SULFATE 15MG TAB CR PO SCH (06:00)
[2019-02-20] MEDS: ACYCLOVIR SODIUM 750 MG in SODIUM CHLORIDE 0.9% 250ML 250 ML IV SCH (06:04)
[2019-02-20] MEDS ORDERED: CALCIUM GLUCONATE 10% INJ 4.65 MEQ in SODIUM CHLORIDE 0.9% 50ML 50 ML IV ONE ×2 (06:45→08:45)
--- NOTE | 2019-02-20 06:45 | NUR ---
Notified Dr Barrera of calcium level of 6.4. received an order to give 1 amp of calcium. report given to the oncoming RN. pt denies any concerns at this time will continue to monitor
[2019-02-20] MEDS: ASPIRIN 300 MG SUPP PR SCH (08:41)
[2019-02-20] MEDS: PANTOPRAZOLE 40 MG 10ML VIAL IV SCH ×2 (08:41→17:06)
[2019-02-20] MEDS: CEFTRIAXONE SOD 2 GM/NS 100 ML 100 ML IV SCH ×2 (10:50→23:26)
[2019-02-20] MEDS ORDERED: MORPHINE SULFATE 2 MG/ML SYR 1ML ONE (11:32)
[2019-02-20] MEDS ORDERED: MORPHINE SULFATE 2 MG/ML SYR 1ML IV PRN (12:00)
--- NOTE | 2019-02-20 12:20 | NUR ---
Spoke with Dr. Barrera and rec'd order to start LTAC eval. Stated possible transfer on Friday, but not this weekend.
[2019-02-20] MEDS: METOPROLOL TARTRATE INJ 1 MG/ML VIAL IV PRN (13:39)
--- NOTE | 2019-02-20 15:11 | NUR ---
Received order for LTAC. Family and patient choose [facility] across the [address]. Himanshu signed choice for [facility]. Notified Millira Noguera who states fax clinicals to [phone]. Notified her that patient not to d/c until Friday per Dr. Barrera Addendum: 02/20/19 at 1532 by Anais Escobar CM MOT initiated, not signed
--- NOTE | 2019-02-20 15:35 | Progress Note ---
DATE: 02/20/2019 Internal Medicine Progress Note SUBJECTIVE: The patient is much more alert today. She did have a swallowing test yesterday, which shows some difficulty swallowing. The patient is on mechanical soft diet with thickened liquids right now. PHYSICAL EXAMINATION: HEART: Showed regular rhythm. Normal S1, S2 sound. LUNGS: Clear bilaterally. ABDOMEN: Soft. EXTREMITIES: Show no evidence of cyanosis or hematoma. Some superficial abrasion. VITAL SIGNS: Show blood pressure 160/79, temperature 98.0, heart rate 80 per minute, respiratory rate 23 per minute, and oxygen saturation 98%. LABORATORY DATA: On the blood work, we have BMP; sodium 143, potassium 3.8, chloride 112, CO2 24, BUN 7, creatinine 0.83, glucose 212. On the CBC; white count 9.23, hemoglobin 9.8, hematocrit 30.0, platelet count 77,000. PT 14.5, INR 1.08, PTT 26.4. AST 26, ALT 28, total bilirubin 0.3, alkaline phosphatase 94. Urine culture negative. Blood culture negative. Herpes simplex virus type 1 and 2. DNA negative, hepatitis C virus RNA negative, RPR negative. IMPRESSION: 1. 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 2. Acute encephalopathy. 3. 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 4. Chronic pain syndrome. 5. Anemia of chronic disease. 6. Uncontrolled hypertension. PLAN OF TREATMENT: 1. We are going to continue insulin drip. 2. Continue metronidazole, ceftriaxone, ampicillin, vancomycin, and acyclovir. 3. Continue aspirin 300 mg daily. 4. Protonix 40 mg twice a day. 5. Continue Lantus 15 units at bedtime also. 6. Continue metoprolol 5 mg q.8 hours as needed. 7. The patient received a flu and pneumonia vaccine. 8. Continue Ziprasidone 10 mg q.6 hours. 9. Continue morphine 30 mg q.6 hours. 10. Continue with IV fluids. 11. Continue with morphine 50 mg q.8 hours. 12. Zofran 4 mg q.4 hours as needed. 13. Clonazepam 0.5 mg q.6 hours as needed. I discussed the case with the patient. I reviewed the notes, discussed the case with the nurses also. Time spent around 45 minutes. The patient most likely is going to go to [facility] once accepted. MD DANIEL Marmolejo/DEEDEE /[id number]
[2019-02-20 15:46] LABS: FREE T4 (FREE THYROXINE) 0.9 ng/dL (0.8-1.8); THYROID STIMULATING HORMONE 5.092 uIU/mL (0.350-4.940)
[2019-02-20] MEDS: MORPHINE SULFATE 2 MG/ML SYR 1ML IV PRN ×2 (17:30→23:41)
--- NOTE | 2019-02-20 17:49 | NUR ---
0800- BG 164 insulin drip decreased to 2 units per hour (per Dr. Luna's protocol). 1200- BG 145 insulin drip continued at 2 units per hour. 1600- BG 239 insulin drip increased to 3 units per hour. Calcium gluconate given this morning. Patient complained of nausea and having poor appetite. Per Dr. Luna continue insulin drip until tomorrow once pt's appetite increases. Orders given to start pt on Lantus at bedtime. Case management working on LTAC evaluation for [facility]. Patient worked with PT today, sat up on edge of the bed and ate a small amount. Blood pressure elevated after PT and patient complaining of back pain, PRN morphine administered. Will continue to monitor the patient. Addendum: 02/20/19 at 1831 by Ramona Holt RN Dr. Cardenas notified of elevated BP systolic 180's-190's. Orders given to decrease IV fluids to 50cc/hr, PRN hydralazine ordered and one time dose of lasix. Will continue to monitor.
[2019-02-20] MEDS ORDERED: HYDRALAZINE HCL 20 MG/ML VIAL IV PRN (18:15)
[2019-02-20] MEDS ORDERED: FUROSEMIDE INJ 10 MG/ML 2 ML VIAL IV NR (18:15)
--- NOTE | 2019-02-20 20:11 | Consultation ---
DATE OF CONSULTATION: 02/20/2019 Neurology Consult Note HISTORY OF PRESENT ILLNESS: Ms. Quevedo is a 68-year-old woman with past medical history significant for diabetes mellitus, thyroid disease, and prior spinal cord injury, admitted to [facility] as an inpatient on February 16, 2019, with encephalopathy. Ms. Quevedo was in her usual state of health until approximately 0500 hours on February 16, 2019. The patient awoke with nausea, vomiting, and diarrhea. When she first awoke, the patient was observed by her to be "mildly confused." According to Mr. Quevedo, the patient's confusion progressively worsened throughout the day. The patient's reports persistence of nausea, vomiting, and diarrhea as well. As the patient's symptoms worsened, Ms. Quevedo's notified Emergency Medical Services, and the patient was transported to the emergency center at [facility] via ambulance for further evaluation of her symptoms. Of note, Ms. Quevedo experienced similar symptoms 1 year previously. Those symptoms were ultimately attributed to an underlying infection. Upon arrival in the emergency center, the patient's temperature was 99.1 rectal, her blood pressure was 113/68 mmHg, and her pulse was 105 beats per minute. Ms. Quevedo's neurological examination was significant for moderately altered mental status. The patient was noted to be confused and disoriented to place and time. Ms. Quevedo inconsistently followed commands. Her responses to questions were inaccurate. Routine blood work performed while the patient was in the emergency center revealed an elevated white blood cell count of 16.09 with a left shift. A comprehensive metabolic panel revealed evidence of acute kidney injury as well as mildly elevated liver enzymes. A urinalysis was unremarkable. While in the emergency center, the patient underwent a CT of the brain without contrast. This study did not reveal evidence of recent large territorial ischemia or hemorrhage. Ms. Quevedo was subsequently admitted to the intensive care unit at [facility] as an inpatient for further evaluation of her symptoms. Upon her admission to the intensive care unit, consultation with Dr. Piper, Infectious Disease, was requested. Dr. Piper saw the patient on the morning of February 17, 2019. At his recommendation, numerous cultures were ordered. Dr. Piper, concerned that the patient may have meningoencephalitis, recommended a lumbar puncture with several cerebrospinal fluid studies ordered. Unfortunately, Ms. Quevedo did not tolerate this procedure, which was done by Interventional Radiology. Only 3 cc of cerebrospinal fluid were obtained prior to the procedure being terminated. Neurology consultation is requested for further evaluation and treatment of encephalopathy. REVIEW OF SYSTEMS: Unable to obtain secondary to the patient being encephalopathic. PAST MEDICAL HISTORY: Diabetes mellitus, thyroid disease, prior spinal cord injury resulting in chronic back pain. PAST SURGICAL HISTORY: Spine surgery/surgeries (cervical spine), hysterectomy, cholecystectomy. PAST HOSPITALIZATIONS: Surgeries/procedures as listed, other hospitalizations for infection, sepsis, dehydration. FAMILY MEDICAL HISTORY: Unable to obtain secondary to the patient being encephalopathic. SOCIAL HISTORY: Ms. Quevedo is . She is retired. There is no reported current or prior tobacco, alcohol, or recreational drug use. HOME MEDICATIONS: Reviewed. Please see the list of home medications available in the electronic medical record. HOSPITAL MEDICATIONS: Reviewed. Please see the list of hospital medications available in the electronic medical record. ALLERGIES: NO KNOWN DRUG ALLERGIES. NO KNOWN FOOD ALLERGIES. NO KNOWN ALLERGIES TO LATEX. NO KNOWN ALLERGIES TO IODINE OR OTHER CONTRAST MATERIALS. PHYSICAL EXAMINATION: VITAL SIGNS: Height 65 inches, weight 218 pounds, BMI 36.3 kg/m2, blood pressure 150/46 mmHg, pulse 98 beats per minute, respiratory rate 24 breaths per minute, and oxygen saturation 97% on room air. GENERAL: The patient is confused, constantly moaning and groaning. Obese. HEENT: Normocephalic, atraumatic. Pupils are equal, round, and sluggishly reactive to light. Moist mucous membranes. NECK: Positive Kernig's and Brudzinski's signs. No appreciable thyromegaly. No appreciable carotid bruits. CARDIOVASCULAR: S1, S2, tachycardic, regular rhythm. No murmurs, rubs, or gallops. RESPIRATORY: Clear to auscultation bilaterally. No wheezes, rhonchi, or rales. EXTREMITIES: The skin is warm and dry. No clubbing, cyanosis, or edema. The posterior tibial and dorsalis pedis pulses are 1+ and symmetric. SKIN: The skin over the feet and distal forelegs appears mildly erythematous. NEUROLOGIC: Memory/Attention: The patient is confused, constantly moaning and groaning. The patient does not respond to orientation questions. Cranial Nerves: The pupils are 4 mm, sluggishly reactive to 2 mm. Corneal and oculocephalic reflexes are intact. The face appears symmetric. The soft palate is observed to elevate equally and symmetrically. Strength: Bulk is normal. There is spontaneous and symmetric movement of both arms and both legs. Ms. Quevedo withdraws all 4 extremities to peripheral noxious stimulation. Tone is normal. DTRs: Deep tendon reflexes are 1+ and symmetric at the triceps, biceps, and brachioradialis. Deep tendon reflexes are trace and symmetric at the patellas. Deep tendon reflexes are absent and symmetric at the Achilles. Plantar responses are flexor bilaterally. Sensation: Sensation is as per motor exam. Cerebellar: Unable to assess secondary to the patient being encephalopathic. Gait: Deferred. Speech: Unable to assess secondary to the patient being encephalopathic. Involuntary Movements: None. Pronator Drift: As per motor exam. LABORATORY DATA: The most recent comprehensive metabolic panel is significant for chloride of 111, carbon dioxide of 18, creatinine of 1.33, estimated GFR of 40, serum glucose of 466, calcium of 7.8, total bilirubin of 1.7, alkaline phosphatase of 182, total protein of 5.7, albumin of 2.5. Cardiac enzymes are negative x3. Lactic acid 4.2, 5.0, 3.4, 2.9. Amylase 13, lipase 10. Ammonia 48. Total cholesterol 169, triglycerides 207, LDL cholesterol 99, HDL cholesterol 29. The most recent CBC with differential and platelets reveals an elevated white blood cell count of 20.51 with a left shift with 86.9% neutrophils, 6.9% lymphocytes, 5.2% monocytes, 0.0% eosinophils, and 0.2% basophils. The hemoglobin and hematocrit are 16.0 and 47.7, respectively. The platelet count is 58. An arterial blood gas collected on February 17, 2019, reveals a pH of 7.49, pCO2 of 23, PO2 of 72, bicarbonate of 17, O2 saturation of 96.0, base excess of -6.0, and FiO2 of 21. A coagulation profile collected on February 16, 2019, is within normal limits. A urinalysis collected on February 16, 2019, revealed slightly cloudy urine with trace protein, 1+ ketones, and moderate amorphous sediments. A urine drug screen collected on February 16, 2019, was positive for opiates. Serum salicylate level less than 5.0 on February 16, 2019. Serum acetaminophen level less than 3 on February 16, 2019. Serum ethyl alcohol level less than 10.0 on February 16, 2019. CSF glucose 240 and CSF total protein 357.9 on February 17, 2019. Influenza types A and B antigen are negative. Numerous other laboratory studies, including cerebrospinal fluid studies are pending. A urine culture collected on February 16, 2019, reveals no growth at 18 to 24 hours. Blood cultures collected on February 16, 2019, revealed no growth at 24 hours. Other cultures including blood cultures and CSF Gram stain and culture are pending. DIAGNOSTIC STUDIES: Electrocardiogram, 02/16/2019: Sinus tachycardia at 106 beats per minute with first-degree AV block. An ST abnormality is observed in the inferior leads. According to Cardiology, the patient is having a non-ST elevation myocardial infarction. Chest x-ray, 02/16/2019: No focal pneumonia or pulmonary edema. CT of the brain without contrast, 02/16/2019: On my review, there is no evidence of recent or remote large territorial ischemia, hemorrhage, mass, or mass effect. There is mild diffuse cerebral atrophy with [id number] compensatory dilatation of the ventricles. There are no findings suggestive of chronic small vessel ischemic disease. CT of the abdomen and pelvis, 02/16/2019: Acute pancreatitis with no evidence of parenchymal necrosis or associated fluid collection. Diffuse wall thickening of the ascending colon and cecum compatible with colitis. Echocardiogram, 02/17/2019: Ejection fraction of 60% to 65%. Concentric left ventricular hypertrophy. Trace tricuspid regurgitation. ASSESSMENT AND PLAN: Ms. Quevedo is a 68-year-old woman with past medical history as detailed, admitted to [facility] as an inpatient on February 16, 2019, with confusion, nausea, vomiting, and diarrhea. Ms. Quevedo was found to be septic upon admission. She was found to be experiencing a non-ST elevation myocardial infarction as well. For these reasons, the patient was admitted to the intensive care unit for further evaluation and treatment of her symptoms. On neurological examination, Ms. Quevedo is markedly encephalopathic. Her laboratory data and other diagnostic studies have been reviewed and are documented above. In my opinion, given the findings on the patient's general physical and neurological examinations (meningismus and encephalopathy) as well as the results of her diagnostic study, I strongly suspect Ms. [place]'s encephalopathy is infectious in etiology. It is probable that the patient has meningitis. Another possibility is metabolic encephalopathy secondary to underlying infections (i.e. pancreatitis and colitis). RECOMMENDATIONS: As follow: 1. Follow up the results of the remaining cerebrospinal fluid studies, urine and blood cultures, etc. 2. In the interim, continue current antibiotics and antiviral medications per Infectious Disease. 3. Other potential causes of encephalopathy will be evaluated. Additional laboratory data will be ordered as follows: Vitamin B1 level, vitamin B6 level, vitamin B12 level, methylmalonic acid, folate, and RPR. 4. Limit treatment with sedative/hypnotic and pain medications as these will alter the patient's sensorium. 5. Utilize environmental cues to limit delirium. 6. Defer treatment of the remaining medical comorbidities to the primary and other services following the patient. 7. Anticipated discharge is pending. Thank you for this consultation. I will continue to follow the patient while she remains in the hospital. TIME SPENT: 70 minutes. Carisa Baig MD CP/MODL /[id number]
[2019-02-20] MEDS: INSULIN GLARGINE 100 UNITS/ML VIAL SQ SCH (20:38)
[2019-02-20] MEDS ORDERED: INSULIN GLARGINE 100 UNITS/ML VIAL SQ SCH (21:00)
[2019-02-20] MEDS: ZOLPIDEM TARTRATE 5 MG TAB PO PRN (21:40)
--- NOTE | 2019-02-20 21:47 | Consultation ---
DATE OF CONSULTATION: 02/19/2019 Endocrine Consultation This is a patient of Dr. Barrera. Thank you very much for referring this patient. HISTORY OF PRESENT ILLNESS: This is a 68-year-old white female, who is known to me from her previous hospital admission at [facility]. The patient this time came to the hospital with history of altered mental status, uncontrolled diabetes mellitus. She is a known diabetic for almost 6-8 years and takes insulin Lantus 60 units twice a day and Humalog about 8-10 with each meal depending upon the blood sugars. The patient has history of spinal cord injury in the past and she is wheelchair bound. She was confused at the time of admission. Her blood sugar at the time of admission was 398 and anion gap was 20+ three. The patient also has history of hypertension. During the hospital stay, her lipase and amylase were elevated. The patient is being evaluated for meningitis. The patient was also had some fever. She had a lumbar puncture done, which was inconclusive. PHYSICAL EXAMINATION: GENERAL: Today, the patient is alert, awake, little bit apprehensive. She is moderately overweight. VITAL SIGNS: Her heart rate is around 78, blood pressure is 130/80 mmHg. HEENT: Essentially unremarkable. Thyroid is palpable. Clinically, she is near euthyroid. CHEST: Bilateral vesicular breathing. She has mild bronchospasm. CARDIOVASCULAR: First and second heart sounds. There is no 3rd or 4th heart sounds. There is ejection systolic murmur grade 2/6. EXTREMITIES: The patient has evidence of diabetic sensorimotor neuropathy in both lower extremities. CLINICAL IMPRESSION: 1. Diabetes mellitus type 2, uncontrolled with complications, status post diabetic ketoacidosis. 2. Acute pancreatitis. 3. Meningitis. 4. Hypertension and status post spinal cord injury. PLAN: At this time is to do hemoglobin A1c, thyroid function test, monitor blood sugars, start from the Lantus insulin 15 at bedtime, advance the diet and slowly will taper off the insulin drip. We will also do a hemoglobin A1c and thyroid function tests. Thanks for referring this patient. I will be following this patient with you. MD JUDY Gonsales/DEEDEE /[id number]
[2019-02-20] MEDS: LABETALOL HCL 5 MG/ML 20ML VIAL IV PRN (22:29)
[2019-02-20] MEDS: HYDRALAZINE HCL 20 MG/ML VIAL IV PRN (23:52)
[2019-02-21] VITALS (12 sets, daily range): BP systolic 129–170; BP diastolic 56–77
[2019-02-21] MEDS ORDERED: PANTOPRAZOLE 40 MG 10ML VIAL IV STA (00:54)
[2019-02-21] MEDS: MORPHINE SULFATE 2 MG/ML SYR 1ML IV PRN ×3 (04:15→22:21)
[2019-02-21 05:10] LABS: AMYLASE 25 U/L (25-125); LIPASE 24 U/L (8-78)
[2019-02-21 05:28] LABS: ANION GAP 13.6 mmol/L (8-16); BLOOD UREA NITROGEN 7 mg/dL (7-26); BUN/CREATININE RATIO 8 (6-25); CARBON DIOXIDE 23 mmol/L (22-29); CHLORIDE 108 mmol/L (98-107); CREATININE, SERUM 0.84 mg/dL (0.57-1.11); EST GLOMERULAR FILTRATION RATE > 60 ML/MIN (60-); GLUCOSE 145 mg/dL (74-118); SODIUM 142 mmol/L (136-145)
[2019-02-21 05:35] LABS: CALCIUM 6.6 mg/dL (8.4-10.2); POTASSIUM 2.6 mmol/L (3.5-5.1)
[2019-02-21] MEDS: METRONIDAZOLE 500MG/NS 100ML 100 ML IV SCH ×3 (05:43→18:04)
--- NOTE | 2019-02-21 06:52 | NUR ---
Notified DR Murphy answering service about the critical lab values. potassium 2.8 and Calcium of 6.6. Pt resting denies any concerns at this time will continue to monitor
[2019-02-21] MEDS ORDERED: POTASSIUM CHLORIDE 20MEQ/100ML 200 ML IV ONE ×2 (07:00→15:30)
[2019-02-21] MEDS ORDERED: CALCIUM GLUCONATE 10% INJ 4.65 MEQ in SODIUM CHLORIDE 0.9% 50ML 50 ML IV ONE ×3 (07:00→15:30)
[2019-02-21] MEDS: PANTOPRAZOLE 40 MG 10ML VIAL IV SCH ×2 (08:10→16:06)
[2019-02-21] MEDS: ASPIRIN 300 MG SUPP PR SCH (09:00)
[2019-02-21] MEDS: HYDRALAZINE HCL 20 MG/ML VIAL IV PRN (09:40)
[2019-02-21] MEDS: CEFTRIAXONE SOD 2 GM/NS 100 ML 100 ML IV SCH ×2 (10:51→23:55)
[2019-02-21] MEDS: DULOXETINE HCL 30 MG DELAYED RELEASE PO SCH (11:00)
--- NOTE | 2019-02-21 11:33 | Progress Note ---
DATE: 02/21/2019 Cardiology Progress Note SUBJECTIVE: No major events overnight. The patient is much more awake and alert today. OBJECTIVE: VITAL SIGNS: Temperature afebrile, pulse 69, respiratory rate 23, blood pressure 156/68, and saturating 95% on 2 L nasal cannula. GENERAL: Well-developed, well-nourished, no acute distress. CARDIOVASCULAR: Regular rate and rhythm. No murmurs, rubs, or gallops. LUNGS: Clear to auscultation anteriorly. ABDOMEN: Soft, nontender, and nondistended. NEURO AND PSYCH: Alert and oriented to person, place, and time. Normal affect. INPATIENT MEDICATIONS: Reviewed. LABORATORY DATA: Reviewed. Notable for hemoglobin of 9.8, which is downtrending from 15.5 about 4 days ago. Potassium is 2.6 and calcium is 6.6, which are both critically low. IMAGING DATA: Reviewed. Barium swallow showed laryngeal penetration and aspiration, unable to take oral medicines still. ASSESSMENT AND PLAN: 1. Abnormal EKG, concerning for ischemia. 2. Leukocytosis. 3. Altered mental status. 4. Sepsis. 5. Acute kidney injury. 6. Diabetic ketoacidosis. 7. Hypokalemia. 8. Hypocalcemia. 9. Hypertension. RECOMMENDATIONS: Getting better from her neurological issues. We will attempt to perform a nuclear stress test tomorrow if continues to do better and is stable from neurologic standpoint. Thank you for this consult. We will continue to follow. MD BENNY Haile/DEEDEE /[id number]
[2019-02-21] MEDS ORDERED: ASPIRIN 81 MG CHEW TAB PO NR (13:00)
[2019-02-21 13:05] LABS: CREATINE KINASE MB 2.9 ng/mL (0-5.0)
[2019-02-21] MEDS ORDERED: INSULIN REGULAR, HUMAN 3ML VL 100 UNIT in SODIUM CHLORIDE 0.9% 100 ML 100 ML IV SCH ×2 (13:15)
[2019-02-21] MEDS: D5.45%NS/KCL 20MEQ 1,000 ML IV SCH (13:30)
[2019-02-21] MEDS: MORPHINE SULFATE 15MG TAB CR PO SCH ×2 (13:34→21:39)
[2019-02-21] MEDS ORDERED: DEXTROSE 50% SYRINGE 50 ML IV PRN (14:30)
[2019-02-21] MEDS ORDERED: INSULIN LISPRO 100 UNIT/1 ML 3ML VIAL SQ NR (14:30)
--- NOTE | 2019-02-21 14:30 | Progress Note ---
DATE: 02/21/2019 Internal Medicine Progress Note SUBJECTIVE: The patient is doing better today, little bit depressed, complaining of chest pain. The patient had an EKG, which was normal and the patient is going to have adenosine Cardiolite stress test done tomorrow by Dr. Nguyen, Cardiology. PHYSICAL EXAMINATION: VITAL SIGNS: Blood pressure 129/66, temperature 99.1, heart rate 83 per minute, respiratory rate 21 per minute, oxygen saturation 96%. HEART: Showed regular rhythm. Normal S1, S2 sound. LUNGS: Clear bilaterally. ABDOMEN: Soft. EXTREMITIES: Show some swelling in both hands. No evidence of any edema on both lower extremities. LABORATORY STUDIES: On BMP; sodium 142, potassium 2.6, chloride 108, CO2 23, BUN 7, creatinine 0.84, glucose 145. On the CBC; white blood count 9.23, hemoglobin 9.8, hematocrit 30.0, platelet count 77,000. PT 14.5, INR 1.08, PTT 26.4. AST 26, ALT 28, total bilirubin 0.3, alkaline phosphatase 94. FINAL IMPRESSION: 1. Meningitis. 2. Acute encephalopathy. 3. Sepsis. 4. 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 5. Chronic pain syndrome. 6. Chronic anemia. 7. Uncontrolled hypertension. 8. Major depression. 9. Insomnia. 10. Hypokalemia. PLAN OF TREATMENT: We are going to continue metronidazole, ceftriaxone. Continue IV fluids. Continue insulin drip. Continue aspirin 300 mg daily, Protonix 40 mg twice a day. She is taking Lantus 15 units at bedtime, labetalol 20 mg IV q.4 hours as needed for hypertension, metoprolol 5 mg IV q.8 hours as needed for tachycardia, morphine 2 mg IV q.4 hours as needed, Cymbalta 30 mg daily. She received flu and pneumonia vaccine. Continue Ambien 5 mg at night p.r.n. for sleep. Continue hydralazine 10 mg IV q.2 hours as needed for hypertension, Zofran 4 mg IV q.4 hours as needed. The patient is going to get an adenosine Cardiolite stress test due to the chest pain that she had today. The EKG was unremarkable. There was no evidence of any ST-segment elevation or depression. Cardiac enzyme has been started. Also, Cymbalta has been started along with Ambien as needed for sleep. I am going to start the patient on Lipitor 40 mg at bedtime also. The case has been discussed with the at the bedside and nurse. Lab reports have been reviewed. [employer] Teacher has been reviewed also. Time spent around 55 minutes. FINAL DIAGNOSES: Acute pancreatitis, which is resolved. Stool for Clostridium difficile, salmonella, shigella, Campylobacter has been all negative. Blood culture completely negative. Urine culture completely negative. CSF culture completely negative. Tentative discharge is for [facility] once the adenosine Cardiolite is done as long as it is negative for any type of ischemia. MD DANIEL Marmolejo/DEEDEE /[id number]
[2019-02-21 15:16] LABS: ANION GAP 13.8 mmol/L (8-16); BLOOD UREA NITROGEN 6 mg/dL (7-26); BUN/CREATININE RATIO 7 (6-25); CARBON DIOXIDE 22 mmol/L (22-29); CHLORIDE 107 mmol/L (98-107); CREATININE, SERUM 0.88 mg/dL (0.57-1.11); EST GLOMERULAR FILTRATION RATE > 60 ML/MIN (60-); GLUCOSE 210 mg/dL (74-118); SODIUM 140 mmol/L (136-145)
[2019-02-21 15:23] LABS: CALCIUM 6.7 mg/dL (8.4-10.2); POTASSIUM 2.8 mmol/L (3.5-5.1)
[2019-02-21] MEDS: DRONABINOL 2.5MG PO SCH (15:41)
[2019-02-21] MEDS: INSULIN LISPRO 100 UNIT/1 ML 3ML VIAL SQ SCH ×2 (18:04→21:32)
--- NOTE | 2019-02-21 18:14 | NUR ---
Replacement potassium and calcium given this morning. Per nightshift RN patient stating "she is feeling like she wants to end it all". States she has a plan but does not want to tell RN the plan. Pt states she does not want psych evaluation. Patient reports also not sleeping for [address] Barrera notified of patients statements. Psyc evaluation ordered and pt started on Cymbalta. Dr. Washington office notified of new consult. Per Dr. Manda mcintyre patient to have cardiac stress test tomorrow. Consent signed by patient. Patient complained of chest pain/ chest pressure this afternoon. Dr. Manda mcintyre informed of situation. EKG done and cardiac enzymes drawn. Dr. Mcintyre notified of results. BMP recheck at 1430. Insulin drip maintained at 2 units per hour today following Dr. Luna's insulin drip protocol. Cheryl Ruiz ordered Humalog SQ now, and then sliding scale. Run insulin drip at 1 unit per hour for 3 hours and then D/C insulin drip at 1800. Dr. Murphy notified of repeat BMP results, potassium 2.8 and calcium 6.7. Orders given for replacements. Insulin drip shut off at 1800. Will continue to monitor the patient.
[2019-02-21] MEDS: INSULIN GLARGINE 100 UNITS/ML VIAL SQ SCH (21:33)
[2019-02-21] MEDS: ONDANSETRON HCL INJ 2MG/ML 2ML 2 MG/ML VIAL IV PRN (22:20)
[2019-02-21] MEDS: ZOLPIDEM TARTRATE 5 MG TAB PO PRN (22:20)
[2019-02-22] VITALS (11 sets, daily range): BP systolic 144–171; BP diastolic 55–86
[2019-02-22] MEDS: METRONIDAZOLE 500MG/NS 100ML 100 ML IV SCH ×4 (00:58→19:52)
[2019-02-22] MEDS: HYDRALAZINE HCL 20 MG/ML VIAL IV PRN ×2 (03:11→15:03)
[2019-02-22] MEDS: ONDANSETRON HCL INJ 2MG/ML 2ML 2 MG/ML VIAL IV PRN ×2 (03:38→18:55)
[2019-02-22] MEDS: MORPHINE SULFATE 2 MG/ML SYR 1ML IV PRN ×3 (03:38→18:54)
[2019-02-22] MEDS: MORPHINE SULFATE 15MG TAB CR PO SCH ×3 (05:47→21:47)
[2019-02-22] MEDS: METOPROLOL TARTRATE INJ 1 MG/ML VIAL IV PRN (05:49)
[2019-02-22 06:52] LABS: BASOPHILS # (AUTO) 0.1 (0.0-0.1); BASOPHILS % 0.5 % (0.0-1.0); EOSINOPHILS # (AUTO) 0.4 (0.0-0.4); HEMATOCRIT 33.8 % (34.2-44.1); LYMPHOCYTES # (AUTO) 1.4 (1.0-3.2); LYMPHOCYTES % 15.2 % (18.0-39.1); MEAN CORPUSCULAR HGB CONC 32.5 g/dL (31-35); MEAN CORPUSCULAR VOLUME 89.2 fL (81-99); MONOCYTES # (AUTO) 0.4 (0.2-0.8); MONOCYTES % 4.4 % (4.4-11.3); NEUTROPHILS # (AUTO) 6.9 (2.1-6.9); PLATELET COUNT 172 x10e3/uL (140-360); RED BLOOD COUNT 3.79 x10e6/uL (3.6-5.1); RED CELL DISTRIBUTION WIDTH 17.5 % (11.7-14.4)
[2019-02-22] MEDS: INSULIN LISPRO 100 UNIT/1 ML 3ML VIAL SQ SCH ×4 (07:30→20:39)
[2019-02-22 07:39] LABS: ANION GAP 13.9 mmol/L (8-16); BLOOD UREA NITROGEN 6 mg/dL (7-26); BUN/CREATININE RATIO 7 (6-25); CARBON DIOXIDE 22 mmol/L (22-29); CHLORIDE 108 mmol/L (98-107); CREATININE, SERUM 0.84 mg/dL (0.57-1.11); EST GLOMERULAR FILTRATION RATE > 60 ML/MIN (60-); GLUCOSE 183 mg/dL (74-118); SODIUM 141 mmol/L (136-145)
[2019-02-22 07:41] LABS: POTASSIUM 2.9 mmol/L (3.5-5.1)
[2019-02-22 07:42] LABS: CALCIUM 6.5 mg/dL (8.4-10.2)
[2019-02-22] MEDS: DRONABINOL 2.5MG PO SCH ×2 (08:36→16:30)
[2019-02-22] MEDS: PANTOPRAZOLE 40 MG 10ML VIAL IV SCH ×2 (08:41→17:00)
[2019-02-22] MEDS: DULOXETINE HCL 30 MG DELAYED RELEASE PO SCH (08:42)
[2019-02-22] MEDS: ASPIRIN 81 MG CHEW TAB PO NR (08:42)
[2019-02-22] MEDS ORDERED: POTASSIUM CHLORIDE 20MEQ/100ML 200 ML IV ONE ×3 (09:30→21:00)
[2019-02-22] MEDS ORDERED: POTASSIUM CHLORIDE 20 MEQ TAB CR PO ONE ×2 (09:35→20:00)
[2019-02-22] MEDS ORDERED: CALCIUM GLUCONATE 10% INJ 4.65 MEQ in SODIUM CHLORIDE 0.9% 100 ML IV ONE (10:30)
[2019-02-22] MEDS ORDERED: MAGNESIUM SULFATE 2GM/50ML 50 ML IV ONE (10:30)
[2019-02-22] MEDS: LISINOPRIL 20 MG TAB PO SCH (10:34)
--- NOTE | 2019-02-22 11:05 | NUR ---
ST NOTE: Repeat BSE ordered, improvement noted by MD, pt currently NPO for procedure. Spoke with RN, Yonatan, repeat MBS more appropriate due to results of last MBS. Pt due to transfer to LT[facility] today, MBS can be completed at that facility if it can not be scheduled at this facility today.
[2019-02-22] MEDS ORDERED: SODIUM CHLORIDE 0.9% 250ML 250 ML ONE (11:42)
--- NOTE | 2019-02-22 11:56 | Progress Note ---
DATE: 02/22/2019 Internal Medicine Progress Note SUBJECTIVE: The patient is doing well. No significant complaint. PHYSICAL EXAMINATION: HEART: Showed regular rhythm. Normal S1 and S2 sound. LUNGS: Clear bilaterally. ABDOMEN: Soft. EXTREMITIES: Show no evidence of cyanosis or hematoma. Had blisters on her left arm. VITAL SIGNS: Blood pressure 183/61, temperature 98.0, heart rate is 82 per minute, respiratory rate 23 per minute, and oxygen saturation 96%. LABORATORY DATA: On the blood work, we have a CBC with a white blood count 9.15, hemoglobin 11.0, hematocrit 33.8, and platelet count of 172,000. On the BMP; sodium 141, potassium 2.9, chloride 108, CO2 22, BUN 6, creatinine 0.84, and glucose 183. Calcium is 6.5, magnesium 1.4, and vitamin B12 480. MICROBIOLOGY: Blood culture negative for 5 days. Urine culture negative. CSF culture is negative for 5 days. Stool culture is completely negative for Salmonella, Shigella, Campylobacter, E. coli. Stool for Giardia antigen, negative. Ova and parasite is still pending. The patient is going to have the potassium replaced. Recheck the potassium and magnesium level today. We are going to also do a stress test because of chest pain that she has. Cardiac enzymes are negative and EKG is normal. FINAL IMPRESSION: 1. Meningoencephalitis. 2. Sepsis. 3. 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 4. Obesity. 5. Chronic pain syndrome. 6. Hypocalcemia. 7. Hypokalemia. 8. Atypical chest pain. PLAN OF TREATMENT: The patient is going to have a stress test done today. Calcium gluconate has been given to the patient. She is on ceftriaxone 2 g IV daily. She is on metronidazole. Potassium has been replaced. Continue aspirin 81 mg daily. Continue with Marinol 2.5 mg twice a day for poor appetite. Continue to monitor blood sugar before meals and at bedtime. Continue hydralazine 10 mg IV q.2 hours as needed for hypertension. Continue with Lantus 15 units at bedtime subcutaneously. Continue labetalol 20 mg IV q.4 hours as needed for hypertension. Continue metoprolol 5 mg q.8 hours as needed for hypertension or tachycardia. Continue morphine 2 mg IV q.4 hours as needed for pain. Continue with MS Contin 15 mg q.8 hours. Continue Zofran 4 mg IV q.4 hours as needed for nausea and vomiting. Continue Protonix 40 mg IV twice a day. She will receive pneumonia vaccine. Continue Ambien 5 mg at night p.r.n. for sleep. I am going to start her on lisinopril 20 mg daily. The patient will have adenosine Cardiolite done today to rule out any evidence of ischemia and the patient will be transferred to [facility] if the adenosine Cardiolite showed no evidence of any coronary artery disease. The patient is also getting physical and occupational therapy. The patient refused followup LP, but the patient is doing clinically much much better. We are going to get a Nephrology consult also because of hypocalcemia and hypokalemia. MD DANIEL Marmolejo/DEEDEE /[id number]
[2019-02-22] MEDS: CEFTRIAXONE SOD 2 GM/NS 100 ML 100 ML IV SCH ×2 (12:16→23:30)
--- NOTE | 2019-02-22 12:48 | NUR ---
Nutrition Intervention Note RD Recommendation(s) for Physician: - When medically feasible, ADAT to goal of Mechanical Soft, 1500 franko carb control- additional diet texture restrictions per BAG MACHINE ADJUSTER - Recommend Glucerna Shake TID for adequacy when diet advanced Plan of Care: RD following, monitoring for tolerance and adequacy Nutrition reason for involvement: LOS RD Assessment 02/22: 68 YOF admitted for AMS, abnormal ECG, dehydration, and sepsis. Pt evaluated today for LOS. Medical providers at bedside at time of attempted visits, unable to obtain hx at this time. Pt discussed during am rounds. Pt NPO for stress test today and then plan to discharge to [facility]. Pt with fluctuating po intake per chart, ~25-75% of meals- pt started on Marinol. Pt with diarrhea yesterday. Will monitor and continue to follow. Principal Problems/Diagnoses: AMS, abnormal ECG, dehydration, sepsis PMH: DM, SCI, cholecystectomy GI: LBM 02/22, diarrhea yesterday Skin: intact Labs: 02/22: K 2.9, Gluc 183, Ca 6.5, Mg 1.4, POC Gluc 150-184 Meds: abx, KCl Ht: 65 in Wt: 225 lb BMI: 37.4 IBW: 125 lb Malnutrition Evaluation (02/22/19) The patient does not meet criteria for a specified degree of malnutrition at this time. Will re-evaluate at follow-up as appropriate. Medical providers at bedside, unable to complete assessment at this time. Energy intake: Unable to assess Weight loss: Unable to assess Fat loss: None observed Muscle loss: None observed, shoulder round Supporting Evidence: Fluid accumulation:unable to evaluate Functional Status: unable to evaluate Nutrition Prescription (Diet Order): NPO- for testing Estimated Nutritional Needs: 2549-6545 calories/day (22-25 kcal/kg IBW) 85-114 g protein/day (1.5-2 g pro/kg IBW) Diet Adequacy: Not meeting calorie needs, Not meeting protein needs Diet Tolerance: tolerating po Diet Education Needs Assessment: Diet education not indicated, patient on temporary/transition diet. Nutrition Care Level: Nutrition Diagnosis: Inadequate energy and protein intake related to current medical conditions as evidenced by fluctuating intake and not meeting needs. Goal: Patient will meet 75-100% of estimated needs by follow up Progress: N/A Interventions: - CHO, texture modified diet, Commercial beverage, Collaboration with other providers, Prescription medication Monitoring/Evaluation: -Total energy intake, Total protein intake, Prescription medication, Modified diet, Liquid supplement Signed: Tessa Morris RD, FLOYD, CNSC
[2019-02-22 16:28] LABS: BILIRUBIN,URINE NEGATIVE (NEGATIVE); CLARITY,URINE SL CLOUDY (CLEAR); COLOR,URINE YELLOW (YELLOW); KETONES,URINE 1+ (NEGATIVE); LEUKOCYTE ESTERASE ,URINE SMALL (NEGATIVE); NITRITE,URINE NEGATIVE (NEGATIVE); PROTEIN,URINE DIPSTICK NEGATIVE (NEGATIVE); URINE UROBILINOGEN 0.2 mg/dL (0.2 - 1)
[2019-02-22] MEDS ORDERED: REGADENOSON 0.4 MG/5 ML SYR IV ONE (16:28)
[2019-02-22 16:42] LABS: BACTERIA,URINE FEW /HPF; WBC,URINE (MAN) 21-50 /HPF (0-5)
[2019-02-22 16:48] LABS: ANION GAP 12.1 mmol/L (8-16); BLOOD UREA NITROGEN 7 mg/dL (7-26); BUN/CREATININE RATIO 9 (6-25); CARBON DIOXIDE 22 mmol/L (22-29); CHLORIDE 106 mmol/L (98-107); CREATININE, SERUM 0.81 mg/dL (0.57-1.11); EST GLOMERULAR FILTRATION RATE > 60 ML/MIN (60-); GLUCOSE 191 mg/dL (74-118); POTASSIUM 3.1 mmol/L (3.5-5.1); SODIUM 137 mmol/L (136-145)
[2019-02-22 16:50] LABS: CALCIUM 6.8 mg/dL (8.4-10.2)
--- NOTE | 2019-02-22 17:00 | NUR ---
REPORT RECEIVED FROM ICU NURSE, PT TRANSFERRING FROM ROOM 193 , PT WHEELING OFF UNIT VIA BED FOR NEL SCAN TEST AT THIS TIME, PT TO RETURN TO ROOM 188
[2019-02-22 17:14] LABS: ABG HCO3 20 mmol/L (23-28); ABG PCO2 30 mmHg (41-51); ABG PH 7.44 (7.31-7.41); ABG PO2 72 mmHg (80-105)
[2019-02-22] MEDS ORDERED: POTASSIUM CHLORIDE 20 MEQ TAB CR PO SCH (18:00)
--- NOTE | 2019-02-22 18:45 | NUR ---
BACK IN ROOM VIA BED, AA&OX3, PT TOLERATING DRINKS FROM LEXISCAN, PT REPORTS SHE IS IN PAIN AND DOES NOT NEED THICKENER IN HER LIQUIDS, AT BS, CALL LIGHT WITHIN REACH
--- NOTE | 2019-02-22 19:08 | NUR ---
MEDICATED PER MD ORDER, PT EDUCATED TO NOT GET OOB WITHOUT CALLING FOR ASSISTANCE, PT VERBALIZED UNDERSTANDING, CALL LIGHT WITHIN REACH, FAMILY AT SIDE
--- NOTE | 2019-02-22 19:50 | Consultation ---
DATE OF CONSULTATION: 02/22/2019 Psychiatric Consultation HISTORY OF PRESENT ILLNESS: The patient is a 68-year-old female, admitted for abnormal ECG and altered mental status. Psych consulted for mood. As per record, the patient has history of diabetes. She is wheelchair-bound due to spinal cord injury. The patient evaluated and events noted. The patient is in the ICU with . She is alert, awake, and oriented to situation. She is calm and cooperative. She is answering questions appropriately. She claims that she has been feeling intermittent anxiety and stress due to her health issues. She denies any depression, denies suicidal ideation, denies passive wish. She reports poor sleep and poor appetite. She claims she slept only 3 hours yesterday. No paranoia elicited. She is not agitated or combative. The patient agrees the to be present during the assessment. Collaborative report from the , who report the patient has been doing better and is at baseline. She is unable to eat and sleep much. PAST PSYCHIATRIC HISTORY: The patient denies past psychiatric history. She denies past suicide attempts. She denies alcohol or drug use. FAMILY HISTORY: Denies. SOCIAL HISTORY: The patient lives with . MENTAL STATUS EXAM: The patient is elderly female. She is alert, awake, and oriented to situation. Her mood is anxious. She denies any suicidal or homicidal ideation. She denies any hallucination. Thought process is concrete. Affect congruent with mood. Psychomotor state is passive. Insight and judgment are fair. Memory appears to be grossly intact. CURRENT MEDICATIONS: 1. Ceftriaxone. 2. Lisinopril. 3. Ambien p.r.n. 4. Potassium chloride. 5. Aspirin. 6. Cymbalta 30 mg p.o. daily. 7. Pantoprazole. 8. Marinol. 9. Morphine. 10. Metoprolol. 11. Morphine scheduled. 12. Metronidazole. 13. Ondansetron. 14. Hydralazine. 15. Insulin. 16. Labetalol. 17. Dextrose. CURRENT LABS: Sodium 141, potassium 2.9, chloride 108, CO2 22, BUN 6, and creatinine 0.84. AST 26 and ALT 28. WBC 9.5, RBC 3.4, hemoglobin 11.0, hematocrit 33.8, and platelets 172. ASSESSMENT: Adjustment disorder with mixed mood. PLAN: 1. Plan is to . 2. Continue with Cymbalta 30 mg p.o. daily. 3. Discontinue Ambien. 4. Add Remeron 7.5 mg p.o. at bedtime. 5. Monitor for mood. 6. Supportive therapy. Thank you for this consultation. Dictated by Tess Schultz PA-C Jim Garsia MD QTV/MODL /[id number]
[2019-02-22] MEDS: MIRTAZAPINE 15 MG TAB PO SCH (20:10)
[2019-02-22] MEDS: INSULIN GLARGINE 100 UNITS/ML VIAL SQ SCH (20:39)
[2019-02-22] MEDS ORDERED: TRAZODONE HCL 50 MG TAB PO SCH (21:00)
--- NOTE | 2019-02-22 21:21 | Progress Note ---
DATE: 02/22/2019 Cardiology Progress Note SUBJECTIVE: The patient's altered mental status has improved. Denies any chest pain or shortness of breath. OBJECTIVE: VITAL SIGNS: Temperature 97.8, heart rate 75, respirations are 20, blood pressure is 144/64, oxygen saturation is 98% on room air. GENERAL: In no apparent distress. CARDIOVASCULAR: Regular rate and rhythm. LUNGS: Clear to auscultation. ABDOMEN: Soft, nontender, nondistended. EXTREMITIES: No clubbing, cyanosis, or edema. CARDIOVASCULAR MEDICATIONS: Reviewed. LABORATORY DATA: Reviewed hemoglobin 11, creatinine 0.8, calcium 6.8, potassium 3.1. IMPRESSION: 1. Abnormal electrocardiogram concerning for ischemia. 2. Leukocytosis. 3. Altered mental status, improved. 4. Sepsis. 5. Acute on chronic kidney injury. 6. Diabetic ketoacidosis. 7. Hypokalemia. 8. Hypocalcemia. 9. Systemic hypertension. RECOMMENDATIONS: Please replace all electrolytes. Continue current cardiovascular medications. Stress test was performed today and we will review the images once they are available. We will continue to follow along with you. Inderjit Hoffmann DO BM/MODL /[id number]
--- NOTE | 2019-02-22 21:30 | Progress Note ---
DATE: 02/22/2019 SUBJECTIVE: Ms. Quevedo seems to be more alert, more communicative. No new complaints. She went for cardiac workup today. Stress test done. REVIEW OF SYSTEMS: Weak, but better. PHYSICAL EXAMINATION: GENERAL: She is alert, follows commands. VITAL SIGNS: Stable. Currently afebrile. HEENT: Normocephalic. NECK: Supple. No JVD. No lymphadenopathy. No thyromegaly. CHEST: Clear bilaterally. HEART: S1, S2. No S3, S4, or murmur. ABDOMEN: Soft. Bowel sounds present. No tenderness. EXTREMITIES: No edema. SKIN: There is no rash. LABORATORY DATA: Reviewed. Her cultures all are negative. Her white count is down to 9.7, hemoglobin 11, hematocrit 33. Sodium 137, potassium 3.1, and creatinine 0.8. IMPRESSION: 1. Sepsis, present on admission secondary to colitis, seems to be better. 2. Altered mental status, encephalopathic. 3. Diabetes mellitus type 2 with neuropathy. 4. Obesity. 5. Chronic pain syndrome. 6. Chest pain. 7. The patient continued to improve. She is currently on ceftriaxone and Flagyl. White count is coming down, which is leading for colitis and pancreatitis. 8. Her RPR was negative. Clostridium difficile was negative. Her hepatitis C was negative. Influenza was negative. Her CSF glucose was 240 with protein 357. I was notified that the HSV in the spinal fluid was negative. We will follow. MD AMANDA Perez/DEEDEE /[id number]
--- NOTE | 2019-02-22 21:35 | Consultation ---
DATE OF CONSULTATION: 02/22/2019 REASON FOR CONSULT: Electrolyte issues. HISTORY OF PRESENT ILLNESS: This is a 68-year-old white female, who was admitted to [place], then came in with altered mental status, uncontrolled diabetes. She was confused and then lumbar puncture was done, which was inconclusive, but the patient is being treated for meningitis. She also had acute pancreatitis. PAST MEDICAL HISTORY: Includes, 1. Type 2 diabetes mellitus. 2. Wheelchair bound. 3. Obesity. PAST SURGICAL HISTORY: 1. Spine cervical surgery. 2. Hysterectomy. 3. Cholecystectomy. SOCIAL HISTORY: No smoking. No alcohol. No drugs. MEDICATIONS: Reviewed. REVIEW OF SYSTEMS: Currently, no nausea, no vomiting, no constipation, no diarrhea, generalized weakness. Neurological as per initial exam and no new skin changes. Basically otherwise negative except the patient stated that she has been having very decreased appetite. LABS: White count 9.1, hemoglobin 11, hematocrit 33, and platelets 172. Sodium 141, potassium 2.9, calcium 6.5, magnesium 1.4, BUN 6. Urinalysis is negative. PHYSICAL EXAMINATION: GENERAL: Alert, following commands. HEENT: Pupils equal, reactive to accommodation. NECK: No JVD. No bruit. LUNGS: Rhonchi. No rales. HEART: Regular rate and rhythm. No S3. No S4. ABDOMEN: Tender. nondistended. No hepatomegaly or splenomegaly. EXTREMITIES: No clubbing, no cyanosis, and no edema. VITAL SIGNS: Blood pressure 156/86, afebrile. ASSESSMENT AND PLAN: 1. Hypokalemia with hypomagnesemia and hypocalcemia. These are most likely secondary to malnutrition, but for now, we will check PTH. We will check ionized calcium. We will start supplementing with a calcium p.o. and we will also give magnesium IV and was started giving the patient food supplement since she has not been eating. She is stating that food is sick enough to handle a regular food, so she thinks that she might be able to handle Boost or diabetic formula they have. 2. Type 2 diabetes mellitus, currently with a glucose of 183. We will be following. 3. Meningomyelitis, currently on IV antibiotics. 4. Encephalopathy currently resolved. Jaron Sanchez MD MA/DEEDEE /[id number]
[2019-02-22] MEDS: ZOLPIDEM TARTRATE 5 MG TAB PO PRN (21:47)
[2019-02-23] MEDS: METRONIDAZOLE 500MG/NS 100ML 100 ML IV SCH ×4 (01:58→20:10)
[2019-02-23] MEDS: MORPHINE SULFATE 2 MG/ML SYR 1ML IV PRN ×4 (02:18→20:10)
[2019-02-23] MEDS: ONDANSETRON HCL INJ 2MG/ML 2ML 2 MG/ML VIAL IV PRN ×4 (02:25→23:06)
[2019-02-23 03:00] VITALS: BP 153/70
[2019-02-23 05:06] LABS: BASOPHILS % 0.4 % (0.0-1.0); EOSINOPHILS # (AUTO) 0.6 (0.0-0.4); EOSINOPHILS % 5.8 % (0.0-6.0); HEMATOCRIT 33.8 % (34.2-44.1); HEMOGLOBIN 10.9 g/dL (12.0-16.0); LYMPHOCYTES # (AUTO) 1.6 (1.0-3.2); LYMPHOCYTES % 14.8 % (18.0-39.1); MEAN CORPUSCULAR HEMOGLOBIN 29.1 pg (28-32); MEAN CORPUSCULAR HGB CONC 32.2 g/dL (31-35); MEAN CORPUSCULAR VOLUME 90.4 fL (81-99); MONOCYTES # (AUTO) 0.5 (0.2-0.8); MONOCYTES % 4.7 % (4.4-11.3); NEUTROPHILS # (AUTO) 7.7 (2.1-6.9); NEUTROPHILS % 73.7 % (38.7-80.0); PLATELET COUNT 268 x10e3/uL (140-360); RED BLOOD COUNT 3.74 x10e6/uL (3.6-5.1); RED CELL DISTRIBUTION WIDTH 17.9 % (11.7-14.4)
[2019-02-23 05:27] LABS: BLOOD UREA NITROGEN 8 mg/dL (7-26); BUN/CREATININE RATIO 10 (6-25); CARBON DIOXIDE 23 mmol/L (22-29); CHLORIDE 108 mmol/L (98-107); CREATININE, SERUM 0.83 mg/dL (0.57-1.11); EST GLOMERULAR FILTRATION RATE > 60 ML/MIN (60-); GLUCOSE 230 mg/dL (74-118); SODIUM 138 mmol/L (136-145)
[2019-02-23 05:28] LABS: CALCIUM 6.6 mg/dL (8.4-10.2)
[2019-02-23] MEDS: MORPHINE SULFATE 15MG TAB CR PO SCH ×3 (06:06→21:34)
--- NOTE | 2019-02-23 06:13 | NUR ---
Dr. Barrera notified of pt's critical calcium level. New order noted, see eMAR.
[2019-02-23] MEDS ORDERED: CALCIUM GLUCONATE 10% INJ 4.65 MEQ in SODIUM CHLORIDE 0.9% 50ML 50 ML IV ONE (06:15)
--- NOTE | 2019-02-23 07:00 | NUR ---
Pt received resting in bed. Alert and oriented x2. Oriented to staff and surroundings. Encouraged to press call osborn if help needed. Emotional support given. Call osborn within reach. Will monitor
[2019-02-23 07:20] VITALS: BP 169/77
[2019-02-23] MEDS: LISINOPRIL 20 MG TAB PO SCH (08:59)
[2019-02-23] MEDS: PANTOPRAZOLE 40 MG 10ML VIAL IV SCH ×2 (08:59→16:37)
[2019-02-23] MEDS: ASPIRIN 81 MG CHEW TAB PO NR (08:59)
[2019-02-23] MEDS: DRONABINOL 2.5MG PO SCH ×2 (08:59→16:37)
[2019-02-23] MEDS: DULOXETINE HCL 30 MG DELAYED RELEASE PO SCH (08:59)
[2019-02-23] MEDS: INSULIN LISPRO 100 UNIT/1 ML 3ML VIAL SQ SCH ×5 (09:00→20:41)
--- NOTE | 2019-02-23 11:07 | NUR ---
Called Dr. Hoffmann for stress test result
--- NOTE | 2019-02-23 11:55 | Myoview Stress Test ---
DATE OF STUDY: 02/22/2019 12:05:00 Stress Test - Treadmill ONLY STRESS SUMMARY: The patient underwent pharmacologic stress with Lexiscan under the usual protocol. Baseline blood pressure 162/58 and dropped to 159/58 with peak stress. This is normal response for Lexiscan. Heart rate increased from 79 to 84 beats per minute. The patient elicited no cardiac symptoms throughout the stress protocol. ELECTROCARDIOGRAPHIC STRESS SUMMARY: Baseline 12-lead electrocardiogram showed normal sinus rhythm with nonspecific ST-T wave abnormalities. There were no significant ST deviations or arrhythmias noted throughout the stress protocol. The patient received technetium-99m tetrofosmin at both rest and stress. Myocardial perfusion images show a small mild anterior perfusion defect. Gated images revealed left ventricular ejection fraction greater than 70%. CONCLUSIONS: 1. Normal hemodynamic, electrocardiographic, and clinical Lexiscan stress test. 2. Abnormal myocardial perfusion imaging. 3. showing a small mild anterior nontransmural scar with mild ischemia. 4. Gated images revealed a left ventricular ejection fraction greater than 70%. DO SAMEERA Gaitan/MODL /[id number]
[2019-02-23 12:00] VITALS: BP 151/62
--- NOTE | 2019-02-23 12:53 | Diagnostic Imaging Report ---
Modified Barium Swallow History: Dysphagia Fluoroscopic time: 1.45 minutes Dose(EZEQUIEL): 1.3 mGy Technique: Modified barium swallow was performed in conjunction with speech pathology. Please see separate report for further details. The patient was fed various consistencies of barium under real time fluoroscopic observation. Provided images demonstrate laryngeal penetration. Please refer to speech pathology report for further details. Impression: Modified barium swallow as described above. Signed by: Dr. Arpan Mattson MD on 02/23/2019 12:50 PM
[2019-02-23] MEDS: CEFTRIAXONE SOD 2 GM/NS 100 ML 100 ML IV SCH ×2 (13:06→23:02)
--- NOTE | 2019-02-23 13:45 | NUR ---
Visit made by the Spiritual Care Department Pastoral Visitor, Sherry Lucero. PV provided pastoral presence, prayer, hospitality, and supportive listening. Pastoral Visitor informed pt/family of the scope of [employer] and availability. KATY HENDRIX Paving Crew Foreman Spiritual Care Department O: [phone] Pager: [phone] ([phone] number calling from)
--- NOTE | 2019-02-23 14:43 | NUR ---
Pt and refused heart cath. Dr. Eric Hoffmann suggested a CTA coronary. Pt to have CTA at 10am tomorrow but needs to get heart rate down btw 60-65bpm. DR. Hoffmann paged. Will follow up
--- NOTE | 2019-02-23 15:28 | NUR ---
Updated Dr. Barrera regarding pt's status. Metoprolol 50mg PO ordered for now & daily. Will monitor
[2019-02-23 16:00] VITALS: BP 159/73
[2019-02-23] MEDS: METOPROLOL TARTRATE 50 MG TAB PO SCH (16:37)
--- NOTE | 2019-02-23 18:18 | NUR ---
Complete bed bath given. Linens changed. Will monitor
--- NOTE | 2019-02-23 18:52 | NUR ---
Noted yeast infection during bath, Dr. Barrera notified. Diflucan 150mg Po ordered. Will endorse to next shift
--- NOTE | 2019-02-23 18:58 | Progress Note ---
DATE: 02/23/2019 Psychiatric Progress Note SUBJECTIVE: The patient evaluated and events noted. The patient is out of ICU. She is alert, awake, and oriented to situation. She is calm and cooperative. She reports increased sleep at night. She denies any depression or anxiety. Denies any hallucination. She denies any suicidal ideation. She is not confused. She is not restless. She denies any side effects from medication. ASSESSMENT: Adjustment disorder with mixed mood. PLAN: 1. To continue with Cymbalta 30 mg p.o. daily. 2. Continue with Ambien p.r.n. 3. Continue Remeron 7.5 mg p.o. at bedtime. 4. The patient is on Marinol. 5. Supportive therapy. 6. Monitor for mood. Dictated by Tess Schultz PA-C MD GITA GonzalezV/DEEDEE /[id number]
--- NOTE | 2019-02-23 19:18 | NUR ---
Pt resting comfortably in bed. Handoff given to oncoming nurse
--- NOTE | 2019-02-23 19:18 | Progress Note ---
DATE: 02/23/2019 Internal Medicine Progress Note SUBJECTIVE: The patient is doing well. PHYSICAL EXAMINATION: HEART: Showed regular rhythm. Normal S1 and S2 sound. LUNGS: Clear bilaterally. ABDOMEN: Soft. EXTREMITIES: 2+ bilateral upper extremity edema. IMPRESSION: 1. Meningoencephalitis. 2. Sepsis. 3. 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 4. Obesity. 5. Chronic pain syndrome. 6. Hypocalcemia. 7. Hypokalemia. 8. Episode of chest pain, rule out coronary artery disease. 9. Anemia of chronic disease. LABORATORY DATA: On blood work, we have a CBC; white blood count 10.45, hemoglobin 10.9, hematocrit 33.8, platelet count 268,000. BMP; sodium 138, potassium 4.0, chloride 108, CO2 of 23, anion gap 11, BUN 8, creatinine 0.83, glucose is 305, calcium 6.6. Toxicology serology negative C difficile. Hepatitis C RNA negative. Herpes simplex virus 1 and 2, DNA negative. Influenza A and B negative. On modified barium swallow, she is allowed to take mechanical soft diet. She had an adenosine Cardiolite done today, which was nonconclusive. The patient refused a cardiac cath. She is going to have a CT angiogram of the coronary arteries tomorrow. PLAN OF TREATMENT: We are going to start her on metoprolol 50 mg daily because of hypertension and tachycardia. Heart rate also has to be between 60 and 65 per minute in order to have a CT angiogram of the coronary arteries. In the meantime, continue Rocephin 2 g IV daily, metronidazole 500 mg IV q.6 hours. She received potassium supplementation. Continue aspirin 81 mg daily. Continue monitoring blood sugar before meals and at bedtime. Continue Marinol 2.5 mg twice a day. Continue Cymbalta 30 mg daily, hydralazine 10 mg IV q.2 hours as needed for hypertension. She got influenza vaccine and pneumonia vaccine. Continue Lantus 20 units at bedtime and Humalog 8 units before each meal. She is on labetalol 20 mg IV q.4 hours as needed for breakthrough pain, lisinopril 20 mg daily, metoprolol 50 mg daily, metoprolol 5 mg IV as needed for tachycardia, Remeron 7.5 mg at bedtime, morphine 2 mg IV q.4 hours as needed for severe pain, morphine extended release which is Ms Contin 15 mg q.8 hours, Zofran 4 mg IV q.4 hours as needed for nausea and vomiting, Protonix 40 mg IV twice a day, and Ambien 5 mg at night p.r.n. for sleep . The case discussed with the patient. Time spent around 45 minutes. The patient is going to be having a CT angiogram tomorrow since she refused a cardiac cath. She understands the consequences of not doing a cardiac cath. If cardiac cath is negative, she will go to [facility] tomorrow. MD DANIEL Marmolejo/DEEDEE /[id number]
--- NOTE | 2019-02-23 19:33 | Progress Note ---
DATE: 02/23/2019 Cardiology Progress Note SUBJECTIVE: The patient's mental status has improved. She denies any chest pain or shortness of breath. OBJECTIVE: VITAL SIGNS: Temperature is 99.2, heart rate is 85, respirations are 24, blood pressure is 151/62, and oxygen saturation 97% on room air. GENERAL: Well-appearing, in no apparent distress. CARDIOVASCULAR: Regular rate and rhythm. LUNGS: Clear to auscultation. ABDOMEN: Soft, nontender, and nondistended. LABORATORY DATA: Reviewed. CARDIOVASCULAR MEDICATIONS: Reviewed. DIAGNOSTIC DATA: Stress test showed anterior nontransmural scar with mild ischemia versus attenuation artifact. IMPRESSION: 1. Abnormal electrocardiogram. 2. Abnormal cardiac stress test. 3. Altered mental status, improved. 4. Sepsis. 5. Acute kidney injury. 6. Diabetic ketoacidosis. 7. Hypokalemia. 8. Hypocalcemia. 9. Systemic hypertension. RECOMMENDATIONS: Continue current cardiovascular medications and antihypertensives. Replace electrolyte levels. Her stress test did show a possible anterior perfusion defect and coronary angiography was recommended, however, the patient and her would like noninvasive coronary evaluation, so a CTA coronary has been ordered. Inderjit Hoffmann DO BM/MODL /[id number]
[2019-02-23 19:49] LABS: ANION GAP 11.3 mmol/L (8-16); BLOOD UREA NITROGEN 8 mg/dL (7-26); BUN/CREATININE RATIO 9 (6-25); CALCIUM 7.3 mg/dL (8.4-10.2); CARBON DIOXIDE 22 mmol/L (22-29); CHLORIDE 108 mmol/L (98-107); EST GLOMERULAR FILTRATION RATE > 60 ML/MIN (60-); GLUCOSE 139 mg/dL (74-118); POTASSIUM 3.3 mmol/L (3.5-5.1); SODIUM 138 mmol/L (136-145)
[2019-02-23 20:00] VITALS: BP 139/58
[2019-02-23] MEDS ORDERED: FLUCONAZOLE 100 MG TAB PO NR (20:30)
[2019-02-23] MEDS: INSULIN GLARGINE 100 UNITS/ML VIAL SQ SCH (20:42)
[2019-02-23] MEDS: MIRTAZAPINE 15 MG TAB PO SCH (21:34)
[2019-02-23] MEDS: OYST-CAL-D 500MG TABLET PO SCH (21:34)
[2019-02-23] MEDS: ZOLPIDEM TARTRATE 5 MG TAB PO PRN (21:39)
[2019-02-23 21:40] VITALS: BP 139/58
[2019-02-24] VITALS (7 sets, daily range): BP systolic 135–167; BP diastolic 55–71
[2019-02-24] MEDS: METRONIDAZOLE 500MG/NS 100ML 100 ML IV SCH ×4 (01:10→20:36)
[2019-02-24] MEDS: MORPHINE SULFATE 2 MG/ML SYR 1ML IV PRN ×4 (04:45→23:32)
[2019-02-24 05:06] LABS: BASOPHILS # (AUTO) 0.1 (0.0-0.1); BASOPHILS % 0.6 % (0.0-1.0); EOSINOPHILS # (AUTO) 0.5 (0.0-0.4); EOSINOPHILS % 5.4 % (0.0-6.0); HEMATOCRIT 32.2 % (34.2-44.1); HEMOGLOBIN 10.2 g/dL (12.0-16.0); LYMPHOCYTES # (AUTO) 1.9 (1.0-3.2); LYMPHOCYTES % 19.3 % (18.0-39.1); MEAN CORPUSCULAR HEMOGLOBIN 29.1 pg (28-32); MEAN CORPUSCULAR HGB CONC 31.7 g/dL (31-35); MONOCYTES # (AUTO) 0.5 (0.2-0.8); MONOCYTES % 5.6 % (4.4-11.3); NEUTROPHILS # (AUTO) 6.6 (2.1-6.9); NEUTROPHILS % 68.5 % (38.7-80.0); PLATELET COUNT 303 x10e3/uL (140-360); RED CELL DISTRIBUTION WIDTH 18.1 % (11.7-14.4)
[2019-02-24 05:24] LABS: ANION GAP 12.4 mmol/L (8-16); BLOOD UREA NITROGEN 8 mg/dL (7-26); BUN/CREATININE RATIO 9 (6-25); CALCIUM 7.3 mg/dL (8.4-10.2); CARBON DIOXIDE 21 mmol/L (22-29); CHLORIDE 108 mmol/L (98-107); CREATININE, SERUM 0.86 mg/dL (0.57-1.11); EST GLOMERULAR FILTRATION RATE > 60 ML/MIN (60-); GLUCOSE 133 mg/dL (74-118); POTASSIUM 3.4 mmol/L (3.5-5.1); SODIUM 138 mmol/L (136-145)
[2019-02-24] MEDS: MORPHINE SULFATE 15MG TAB CR PO SCH ×3 (06:00→21:31)
[2019-02-24] MEDS: INSULIN LISPRO 100 UNIT/1 ML 3ML VIAL SQ SCH ×7 (07:21→20:37)
[2019-02-24] MEDS: PANTOPRAZOLE 40 MG 10ML VIAL IV SCH ×2 (08:11→17:21)
--- NOTE | 2019-02-24 08:18 | NUR ---
PT STABLE, NPO UNTIL 10AM FOR TEST. HOLDING MEDS AT THIS TIME
[2019-02-24] MEDS ORDERED: CALCITRIOL 0.5 MCG CAP PO SCH (09:00)
[2019-02-24] MEDS: METOPROLOL TARTRATE INJ 1 MG/ML VIAL IV PRN (09:26)
[2019-02-24] MEDS: LABETALOL HCL 5 MG/ML 20ML VIAL IV PRN (10:05)
[2019-02-24] MEDS ORDERED: POTASSIUM CHLORIDE 20 MEQ TAB CR PO NR (10:30)
[2019-02-24] MEDS ORDERED: NITROGLYCERIN 0.4 MG SUBL ONE (10:34)
--- NOTE | 2019-02-24 10:48 | NUR ---
PT OFF UNIT FOR PROCEDURE
[2019-02-24] MEDS: DRONABINOL 2.5MG PO SCH ×2 (11:15→17:20)
[2019-02-24] MEDS: ASPIRIN 81 MG CHEW TAB PO NR (11:16)
[2019-02-24] MEDS: DULOXETINE HCL 30 MG DELAYED RELEASE PO SCH (11:16)
[2019-02-24] MEDS: CALCITRIOL 0.25 MCG CAP PO SCH (11:16)
[2019-02-24] MEDS: OYST-CAL-D 500MG TABLET PO SCH ×3 (11:16→20:36)
--- NOTE | 2019-02-24 11:22 | NUR ---
ST NOTE: Pt nauseated after procedure, deferring NMES to treat dysphagia until her transfer to [facility]. Spouse present. Awaiting RN to administer medication. Handoff to AILEEN Irwin
[2019-02-24] MEDS: METOPROLOL TARTRATE 50 MG TAB PO SCH (11:24)
[2019-02-24] MEDS: LISINOPRIL 20 MG TAB PO SCH (11:24)
[2019-02-24] MEDS: CEFTRIAXONE SOD 2 GM/NS 100 ML 100 ML IV SCH ×2 (11:24→23:31)
--- NOTE | 2019-02-24 11:47 | Progress Note ---
DATE: 02/24/2019 Internal Medicine Progress Note SUBJECTIVE: The patient is waiting for a CT angiogram of the chest. The patient refused a cardiac cath yesterday knowing the limitations of the CT angiogram. PHYSICAL EXAMINATION: HEART: Showed regular rhythm. Normal S1 and S2 sound. LUNGS: Clear bilaterally. ABDOMEN: Soft. VITAL SIGNS: Blood pressure 164/66, temperature 98.5, heart rate 75 per minute, respiratory rate 18 per minute, and oxygen saturation 95%. LABORATORY DATA: On the CBC; white blood count 9.64, hemoglobin 10.2, hematocrit 32.2, and platelet count 303,000. On the BMP; sodium 138, potassium 3.4, chloride 108, CO2 21, BUN 8, creatinine 0.86, glucose is 133, and calcium is 7.3. C. difficile toxin negative. RPR is negative. Hepatitis C RNA negative. Herpes simplex virus 1 and 2 negative. Influenza type A and B negative. Urine for drug screen positive for opiates only. FINAL IMPRESSION: 1. Sepsis. 2. Colitis. 3. 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 4. Obesity. 5. Chronic pain syndrome. 6. Hypocalcemia. 7. Hypokalemia. PLAN OF TREATMENT: Continue current insulin regimen. She is going to have a CT angiogram today. Replace the potassium. Recheck the potassium later on. Continue the insulin regimen as I said. The patient will be transferred to [facility] if the CT angiogram is negative. MD DANIEL Marmolejo/DEEDEE /[id number]
--- NOTE | 2019-02-24 13:48 | Diagnostic Imaging Report ---
EXAM: CALCIUM SCORE AND CORONARY CTA INDICATION: ^abnormal stress test ^[id number] ^[id number] COMPARISON: Lexiscan stress test 02/22/2019, chest radiograph 02/17/2019 TECHNIQUE: Multi-detector CT technology was employed (64 MDCT Swing by Swing). Minimal slice thickness with retrospective gating was performed following the intravenous administration of contrast material. The patient was premedicated with 0.4 mg sublingual nitroglycerin for coronary artery dilation. IV CONTRAST: 100 mL of Isovue-370 ORAL CONTRAST: None COMPLICATIONS: None RADIATION DOSE: Total DLP: 1807 mGy*cm Estimated effective dose: (DLP x 0.015 x size factor) mSv CTDIvol has been reviewed. It is below the limits set by the Radiation Protocol Committee (RPC). For optimization of anatomic evaluation, multiplanar reconstruction, maximum intensity projections, and advanced 3-D off-line postprocessing were performed on a dedicated stand-alone workstation under the direct supervision of the interpreting physician. QUALITY: Good FINDINGS: CALCIUM SCORE: The observed Agatston Calcium Score of 0 is at percentile 0% for subjects of the same age and gender who are free of clinical cardiovascular disease and treated diabetes. The Agatston score for each vessel is as follows: LM: 0 LAD: 0 LCx: 0 RCA: 0 DISTRIBUTION OF THE CALCIFIED PLAQUES: No identifiable calcified plaques in the coronary arteries. CORONARY ANATOMY: There is normal origin of the coronary arteries. Left Main Coronary Artery: The left main is normal sized vessel that bifurcates into the LAD and circumflex. There is no evidence of atherosclerotic changes or stenotic disease. Left Anterior Descending Coronary Artery: The LAD is a normal size vessel that wraps around the apex. It gives rise to 2 acute diagonal branches. There is no evidence of atherosclerotic changes or stenotic disease. Left Circumflex Coronary Artery: The LCX is a normal size vessel, which is non-dominant. It gives rise to 2 obtuse marginal branches. There is no evidence of atherosclerotic changes or stenotic disease. Right Coronary Artery: The RCA is a normal size vessel, which is dominant. It gives rise to a conus branch, AV pascual branch, and 2 acute marginal branches. In its distal segment it bifurcates into the PDA and PV branch. There is no evidence of atherosclerotic changes or stenotic disease. CARDIAC MORPHOLOGY AND FUNCTION: The right and left atria and ventricles are morphologically normal. There is normal resting global left ventricular systolic function. LVEF: 78.5%, likely overestimated LV end diastolic volume: 111.6 cc LV end systolic volume: 24 cc LV stroke volume: 87.7 cc LIMITED CHEST: Limited views of the visualized chest show no abnormality within chest wall and mediastinum. No mediastinal lymphadenopathy. The main pulmonary arteries normal in size, measuring 2.2 cm in diameter. Partially visualized small bilateral pleural effusions with adjacent consolidations due to atelectasis, cannot exclude superimposed pneumonia. Mild bilateral pulmonary edema. Left upper lobe calcified granuloma. The visualized portions of the ascending and descending thoracic aorta are of normal size. Small pericardial effusion adjacent to the right ventricle, measuring 0.8 cm in thickness. LIMITED ABDOMEN: Cholecystectomy. BONES: No acute osseous abnormalities. IMPRESSION: 1. Total Agatston Calcium Score: 0 that corresponds to percentile 0%, representing no identifiable calcified plaques in the coronary arteries. 2. Normal coronary anatomy without evidence of atherosclerotic changes or stenotic disease. CAD-REGINA: 0 Reference: [email or web address] 3. Mild bilateral pulmonary edema with associated small pleural effusions. 4. Bibasilar consolidations may reflect atelectasis and/or superimposed pneumonia. Signed by: Dr. Andreina Archuleta M.D. on 02/24/2019 1:44 PM
[2019-02-24 15:04] LABS: ANION GAP 11.3 mmol/L (8-16); BLOOD UREA NITROGEN 9 mg/dL (7-26); BUN/CREATININE RATIO 10 (6-25); CALCIUM 7.1 mg/dL (8.4-10.2); CARBON DIOXIDE 21 mmol/L (22-29); CHLORIDE 106 mmol/L (98-107); CREATININE, SERUM 0.87 mg/dL (0.57-1.11); EST GLOMERULAR FILTRATION RATE > 60 ML/MIN (60-); GLUCOSE 190 mg/dL (74-118); POTASSIUM 3.3 mmol/L (3.5-5.1); SODIUM 135 mmol/L (136-145)
[2019-02-24] MEDS: INSULIN GLARGINE 100 UNITS/ML VIAL SQ SCH (20:37)
[2019-02-24] MEDS ORDERED: MIRTAZAPINE 15 MG TAB PO SCH (21:00)
--- NOTE | 2019-02-24 21:11 | Progress Note ---
DATE: 02/24/2019 Cardiology Progress Note SUBJECTIVE: The patient is feeling better. Denies any chest pain. OBJECTIVE: VITAL SIGNS: Temperature is 98.5, heart rate 75, respirations 18, blood pressure is 157/85, and oxygen saturation 95% on room air. GENERAL: Well appearing, in no apparent distress. CARDIOVASCULAR: Regular rate and rhythm. LUNGS: Clear to auscultation. ABDOMEN: Soft, nontender, and nondistended. EXTREMITIES: No edema. MEDICATIONS: Reviewed. LABORATORY DATA: Reviewed. Hemoglobin 10.2. Creatinine is 0.87. Coronary CTA today showed coronary calcium score of 0 with normal coronary anatomy with no evidence of significant atherosclerotic changes. IMPRESSION: 1. Abnormal electrocardiogram. 2. Abnormal cardiac stress test, likely related to artifact. 3. Altered mental status, improved. 4. Sepsis. 5. Acute kidney injury. 6. Diabetic ketoacidosis. 7. Electrolyte abnormalities. 8. Systemic hypertension. RECOMMENDATIONS: Her abnormal stress test was likely artifact given her coronary CTA showed calcium score of 0 with no atherosclerotic plaque noted. Continue current cardiovascular medications. Replace electrolyte levels. She may be discharged from a cardiovascular standpoint. Inderjit Hoffmann DO BM/MODL /[id number]
--- NOTE | 2019-02-24 21:42 | Progress Note ---
DATE: 02/24/2019 SUBJECTIVE: Ms. Quevedo is doing better. She is more alert. She is weak today because she did not eat. She was doing test all day, but her at the bedside, but overall she is much better, more alert. No complaint and the think she is back to her baseline. This patient who is currently lying in bed, comfortable with no complaints. REVIEW OF SYSTEMS: HEENT: Negative. PULMONARY: Negative. CARDIAC: Negative. : Negative. At present time, she is just weak. LABORATORY DATA: Reviewed. Cultures all came back negative. Her white count is 9.6, hemoglobin of 10.2. Her vancomycin trough was 16.1. Her RPR was negative. C. difficile was negative. Hepatitis C and HIV all negative. Influenza A and B was negative. MEDICATIONS: The patient was currently on: 1. Os-Tyler. 2. Metronidazole. 3. Prinivil. 4. Ceftriaxone. PHYSICAL EXAMINATION: GENERAL: She is currently alert, oriented, does not seem to be in acute distress. VITAL SIGNS: Stable, currently afebrile. HEENT: She is not icteric, normocephalic. NECK: Supple. No JVD. No lymphadenopathy or thyromegaly. CHEST: Clear bilateral. HEART: S1, S2. No S3, S4, or murmur. ABDOMEN: Soft. IMPRESSION: Colitis, clinically better, can change to oral Cipro and Flagyl. Pancreatitis, also doing better. We will follow with you. Debility, continue with PT and OT. We will follow. MD AMANDA Perez/DEEDEE /[id number]
[2019-02-24] MEDS: ONDANSETRON HCL INJ 2MG/ML 2ML 2 MG/ML VIAL IV PRN (23:32)
[2019-02-25] VITALS (7 sets, daily range): BP systolic 142–184; BP diastolic 53–83
[2019-02-25] MEDS: MORPHINE SULFATE 2 MG/ML SYR 1ML IV PRN ×4 (00:17→15:58)
[2019-02-25] MEDS: LABETALOL HCL 5 MG/ML 20ML VIAL IV PRN (00:18)
[2019-02-25] MEDS: METRONIDAZOLE 500MG/NS 100ML 100 ML IV SCH ×3 (02:10→15:57)
[2019-02-25] MEDS: HYDRALAZINE HCL 20 MG/ML VIAL IV PRN (04:05)
--- NOTE | 2019-02-25 04:23 | Progress Note ---
DATE: 02/24/2019 Psychiatric Progress Note SUBJECTIVE: The patient was evaluated and events noted. The patient is in the room with the . She is alert, awake, and oriented to situation. She is calm. She is cooperative. She reports doing well. Denies any depression or anxiety. Reports increased sleep, but needed Ambien p.r.n. to help with sleep. She denies any issue with appetite. She denies any hallucination. She has no longer confused. She denies any side effects of medication. is in the room, collaborative report with the hospital report, who reports that the patient is doing much better. ASSESSMENT: Adjustment disorder with mixed mood. PLAN: 1. Continue with Cymbalta 30 mg p.o. daily. 2. Continue with p.r.n. Ambien. 3. Increase Remeron to 15 mg p.o. at bedtime. 4. The patient is on Marinol. 5. Supportive therapy. 6. Monitor for mood. Dictated by Tess Schultz PA-C Jim Garsia MD QTV/DEEDEE /[id number]
[2019-02-25 05:04] LABS: BASOPHILS # (AUTO) 0.1 (0.0-0.1); BASOPHILS % 0.7 % (0.0-1.0); EOSINOPHILS # (AUTO) 0.5 (0.0-0.4); EOSINOPHILS % 7.1 % (0.0-6.0); HEMOGLOBIN 10.1 g/dL (12.0-16.0); LYMPHOCYTES # (AUTO) 1.4 (1.0-3.2); LYMPHOCYTES % 19.4 % (18.0-39.1); MEAN CORPUSCULAR HEMOGLOBIN 29.3 pg (28-32); MEAN CORPUSCULAR HGB CONC 31.6 g/dL (31-35); MEAN CORPUSCULAR VOLUME 92.8 fL (81-99); MONOCYTES # (AUTO) 0.4 (0.2-0.8); MONOCYTES % 6.1 % (4.4-11.3); NEUTROPHILS # (AUTO) 4.7 (2.1-6.9); NEUTROPHILS % 66.1 % (38.7-80.0); PLATELET COUNT 315 x10e3/uL (140-360); RED BLOOD COUNT 3.45 x10e6/uL (3.6-5.1); RED CELL DISTRIBUTION WIDTH 17.9 % (11.7-14.4)
[2019-02-25] MEDS: MORPHINE SULFATE 15MG TAB CR PO SCH ×2 (05:15→15:57)
[2019-02-25 05:44] LABS: ANION GAP 13.6 mmol/L (8-16); BLOOD UREA NITROGEN 8 mg/dL (7-26); BUN/CREATININE RATIO 9 (6-25); CALCIUM 7.4 mg/dL (8.4-10.2); CARBON DIOXIDE 21 mmol/L (22-29); CHLORIDE 106 mmol/L (98-107); CREATININE, SERUM 0.85 mg/dL (0.57-1.11); EST GLOMERULAR FILTRATION RATE > 60 ML/MIN (60-); GLUCOSE 143 mg/dL (74-118); POTASSIUM 3.6 mmol/L (3.5-5.1); SODIUM 137 mmol/L (136-145)
[2019-02-25] MEDS: INSULIN LISPRO 100 UNIT/1 ML 3ML VIAL SQ SCH ×4 (07:30→11:36)
[2019-02-25] MEDS: ASPIRIN 81 MG CHEW TAB PO NR (08:54)
[2019-02-25] MEDS: CALCITRIOL 0.25 MCG CAP PO SCH (08:54)
[2019-02-25] MEDS: LISINOPRIL 20 MG TAB PO SCH (08:54)
[2019-02-25] MEDS: DULOXETINE HCL 30 MG DELAYED RELEASE PO SCH (08:54)
[2019-02-25] MEDS: PANTOPRAZOLE 40 MG 10ML VIAL IV SCH (08:54)
[2019-02-25] MEDS: DRONABINOL 2.5MG PO SCH ×2 (08:54→15:57)
[2019-02-25] MEDS: METOPROLOL TARTRATE 50 MG TAB PO SCH (08:54)
[2019-02-25] MEDS: OYST-CAL-D 500MG TABLET PO SCH ×2 (08:54→15:57)
[2019-02-25] MEDS: CEFTRIAXONE SOD 2 GM/NS 100 ML 100 ML IV SCH (11:29)
[2019-02-25] MEDS ORDERED: DIPHENHYDRAMINE HCL 25 MG CAP PO PRN (15:30)
[2019-02-26] MEDS ORDERED: PANTOPRAZOLE SOD 40 MG TABEC PO SCH (07:30)
--- NOTE | 2019-02-26 14:47 | Discharge Summary ---
HOSPITAL COURSE: The patient is 68-year-old female with past medical history positive for diabetes, hypertension, chronic pain syndrome, diabetic neuropathy, came here due to change in mental status. First impression was meningoencephalitis. The patient had blood culture, urine culture, negative. Chest x-ray negative. The patient was started on empiric IV antibiotic and refused the lumbar puncture. After the first attempt the patient was transferred from the intensive care unit to the medical floor. She is doing better with optimizing the diabetes regimen. She is still on IV antibiotic. She wants going to go to [facility] for continuation of IV antibiotic. PHYSICAL EXAMINATION: VITAL SIGNS: Blood pressure is 142/53, temperature 98.6, heart rate 84 per minute, respiratory rate 20 per minute, oxygen saturation 97%. HEART: Showed regular rhythm. Normal S1 and S2 sound. LUNGS: Clear bilaterally. ABDOMEN: Soft. LABORATORY DATA: On the CBC; white blood count 7.17, hemoglobin 10.1, hematocrit 32.0, platelet count 315,000. On the BMP; sodium 137, potassium 3.6, chloride 106, CO2 of 21, BUN 8, creatinine 0.85, glucose 143. Toxicology came positive for opiates only. IMPRESSION: 1. Meningoencephalitis. 2. Sepsis. 3. 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 4. Obesity. 5. Chronic pain syndrome. 6. Hypocalcemia. 7. Hypokalemia. PLAN OF TREATMENT: The patient is going to be transferred to [facility] for continuation of IV antibiotics. We are going to continue with ceftriaxone 2 g IV daily twice a day, metronidazole 500 mg IV q.6 hours, aspirin 81 mg daily. Monitor blood sugar before meals and at bedtime. Continue diabetic diet. Continue Rocaltrol 0.5 mcg p.o. daily. Continue calcium with vitamin D 500 mg three times a day, Marinol 2.5 mg twice a day for poor appetite, Cymbalta 30 mg daily, hydralazine 10 mg IV every 2 hours as needed for hypertension. She received influenza and pneumonia vaccine. She had the Lantus 20 units at bedtime, Humalog 8 units before meals, labetalol 20 mg IV q.4 hours as needed for breakthrough pain, lisinopril 20 mg daily, metoprolol 50 mg daily, metoprolol 5 mg IV q.8 hours as needed for hypertension or tachycardia, Remeron 15 mg at bedtime, morphine 2 mg IV every 4 hours as needed for severe pain, sustained release morphine 15 mg p.o. q.8 hours, Zofran 4 mg IV q.4 hours as needed for nausea and vomiting, Protonix 40 mg IV twice a day which is going to be changed to p.o. twice a day, Ambien 5 mg at night p.r.n. for sleep. The patient is going to be transferred to [facility] today. MD DANIEL Marmolejo/DEEDEE /[id number]
== END 2019-02-25 16:53 | DRG 871 ==
LOC: ER 13:15 → ERHOLD 16:59 → ICU 19:35 → IMCU 02-22 18:33
PROVIDERS: ADMIT Internal Medicine; ATTEND Internal Medicine
PROC: 3E02340 Introduction of Influenza Vaccine into Muscle, Percutaneous Approach (ICD-10-PCS; 2019-02-16)
PROC: 3E0234Z Introduction of Serum, Toxoid and Vaccine into Muscle, Percutaneous Approach (ICD-10-PCS; 2019-02-16)
PROC: 02HV33Z Insertion of Infusion Device into Superior Vena Cava, Percutaneous Approach (ICD-10-PCS; principal; 2019-02-17)
PROC: 009U3ZX Drainage of Spinal Canal, Percutaneous Approach, Diagnostic (ICD-10-PCS; 2019-02-17)
DX: A41.9 Sepsis, unspecified organism (principal); G04.90 Encephalitis and encephalomyelitis, unspecified; I21.4 Non-ST elevation (NSTEMI) myocardial infarction; K85.90 Acute pancreatitis without necrosis or infection, unspecified; G93.41 Metabolic encephalopathy; Z79.4 Long term (current) use of insulin; G89.4 Chronic pain syndrome; E83.51 Hypocalcemia; E87.6 Hypokalemia; E66.9 Obesity, unspecified; Z68.36 Body mass index [BMI] 36.0-36.9, adult; E86.0 Dehydration; E11.65 Type 2 diabetes mellitus with hyperglycemia; I10 Essential (primary) hypertension; Z23 Encounter for immunization; K52.9 Noninfective gastroenteritis and colitis, unspecified; E11.40 Type 2 diabetes mellitus with diabetic neuropathy, unspecified
CPT/HCPCS: 36415; 36569; 36600; 62270; 70450; 71045; 74177; 74230; 74470; 75574; 77002; 78452; 80048; 80053; 80061; 80202; 80307; 80320; 80329; 81001; 82088; 82140; 82150; 82550; 82553; 82607; 82746; 82805; 82945; 82948; 83036; 83605; 83630; 83690; 83735; 83880; 83921; 83970; 84132; 84133; 84157; 84207; 84244; 84425; 84439; 84443; 84484; 85025; 85610; 85730; 86592; 86850; 86900; 87040; 87045; 87070; 87086; 87177; 87205; 87328; 87400; 87493; 87521; 87529; 93005; 93017; 93306; 93971; 96372; 97139; 99284; A9502; J0360; J0610; J0696; J1815; J1817; J1940; J2001; J2060; J2270; J2405; J2543; J3370; J3475; J3480; J3486; J7030; J7050; Q9967

== ENCOUNTER → 2019-06-01 | Outpatient (CLI) | payer MEDICARE, OTHER ==
[~2019-06-01] MED LIST: AMITRIPTYLINE H50 MG PO; ASPIR 8181 MG PO; CYMBALTA30 MG PO; GABAPENTIN400 MG PO; HUMALOG100 UNIT/1 SC; HUMALOG100 UNIT/3 SC; LANTUS 3ML100 UNITS/ SC; LEVOTHYROXINE75 MCG PO; MORPHINE SULFAT30 M2 PO; MS CONTIN30 MG PO; MULTI-VITAMIN1 EACH; TIZANIDINE HCL4 MG PO; TRADJENTA5 MG PO
--- NOTE | 2019-06-01 10:24 | Diagnostic Imaging Report ---
EXAM: ABDOMEN-1VIEW (KUB) DATE: 06/01/2019 9:33 AM INDICATION: Urinary tract infection COMPARISON: None FINDINGS/IMPRESSION: Bowel gas pattern is nonobstructed. No intraperitoneal free air is appreciated. Please note bowel gas overlies the renal shadows limiting evaluation. Several punctate calcifications are overlying the expected location of the right renal shadow which may represent small nephroliths. A single punctate calcification is noted overlying the left renal shadow. Cholecystectomy clips noted within the right upper quadrant. There are degenerative changes of the lumbosacral spine. No acute osseous abnormality is identified. Signed by: Dr. Arpan Mattson MD on 06/01/2019 10:21 AM
--- NOTE | 2019-06-01 11:07 | Diagnostic Imaging Report ---
EXAM: US RENAL RETROPERITONEAL COMP DATE: 06/01/2019 9:33 AM INDICATION: Urinary tract infection COMPARISON: None FINDINGS: The right kidney is normal in size measuring 10.0 x 4.6 x 3.7 cm with cortical thickness of 2.2 cm. Cortical echogenicity is within normal limits. There is no evidence for solid renal mass, hydronephrosis, or shadowing calculi. The left kidney is normal in size measuring 10.3 x 4.9 x 4.5 cm with cortical thickness of 1.7 cm. Cortical echogenicity is within normal limits. There is no evidence for solid renal mass, hydronephrosis, or shadowing calculi. The partially distended urinary bladder demonstrates no significant abnormalities. Bilateral ureteral jets are noted. Prevoid volume is 67 cc. IMPRESSION: Unremarkable renal ultrasound examination. Signed by: Dr. Arpan Mattson MD on 06/01/2019 11:04 AM
== END ==
LOC: US 09:25
PROVIDERS: ATTEND Urology
DX: N39.0 Urinary tract infection, site not specified (principal)
CPT/HCPCS: 74018; 76770

== ENCOUNTER 2019-06-24 11:41 | Inpatient (IN) | payer MEDICARE, OTHER ==
[~2019-06-24] VITALS: Ht 162.6 cm; Wt 98.9 kg
[2019-06-24] MEDS ORDERED: SODIUM CHLORIDE 0.9% 500ML 500 ML IV STA (11:50)
[2019-06-24] MEDS ORDERED: VANCOMYCIN 1GM/NS 250 ML 250 ML IV STA (12:00)
[2019-06-24] MEDS ORDERED: PIPER-TAZ 3.375 GM 50 ML IV STA (12:00)
[2019-06-24] MEDS ORDERED: ACETAMINOPHEN 325 MG TAB PO ONE (12:00)
[2019-06-24] MEDS ORDERED: SODIUM CHLORIDE 0.9% 1000ML 1,000 ML IV STA (12:09)
[2019-06-24 12:35] LABS: BASOPHILS % 0.3 % (0.0-1.0); EOSINOPHILS % 0.2 % (0.0-6.0); HEMATOCRIT 35.7 % (34.2-44.1); HEMOGLOBIN 11.4 g/dL (12.0-16.0); LYMPHOCYTES # (AUTO) 0.9 (1.0-3.2); MEAN CORPUSCULAR HEMOGLOBIN 27.7 pg (28-32); MEAN CORPUSCULAR HGB CONC 31.9 g/dL (31-35); MEAN CORPUSCULAR VOLUME 86.7 fL (81-99); MONOCYTES # (AUTO) 0.6 (0.2-0.8); MONOCYTES % 4.7 % (4.4-11.3); NEUTROPHILS # (AUTO) 11.1 (2.1-6.9); NEUTROPHILS % 87.6 % (38.7-80.0); PLATELET COUNT 221 x10e3/uL (140-360); RED BLOOD COUNT 4.12 x10e6/uL (3.6-5.1); RED CELL DISTRIBUTION WIDTH 14.4 % (11.7-14.4)
[2019-06-24 12:53] LABS: INR 0.94; PROTHROMBIN TIME 13.1 seconds (11.9-14.5)
[2019-06-24 12:54] LABS: PARTIAL THROMBOPLASTIN TIME 30.9 seconds (23.8-35.5)
[2019-06-24 13:04] LABS: ALBUMIN 3.4 g/dL (3.5-5.0); ALBUMIN/GLOBULIN RATIO 0.9 (0.8-2.0); ANION GAP 15.2 mmol/L (8-16); CALCIUM 9.3 mg/dL (8.4-10.2); CREATININE, SERUM 0.99 mg/dL (0.57-1.11); POTASSIUM 4.2 mmol/L (3.5-5.1)
[2019-06-24 13:11] LABS: CLARITY,URINE CLEAR (CLEAR); COLOR,URINE YELLOW (YELLOW); LEUKOCYTE ESTERASE ,URINE NEGATIVE (NEGATIVE)
[2019-06-24 13:12] LABS: BACTERIA,URINE MODERATE /HPF; BILIRUBIN,URINE NEGATIVE (NEGATIVE); EPITHELIAL CELLS,URINE RARE /LPF; KETONES,URINE NEGATIVE (NEGATIVE); NITRITE,URINE POSITIVE (NEGATIVE); PROTEIN,URINE DIPSTICK NEGATIVE (NEGATIVE); RBC,URINE 0-5 /HPF (0-5); URINE UROBILINOGEN 0.2 mg/dL (0.2 - 1); WBC,URINE (MAN) 0-5 /HPF (0-5)
[2019-06-24 13:13] LABS: CREATINE KINASE MB 2.3 ng/mL (0-5.0)
--- NOTE | 2019-06-24 13:41 | Diagnostic Imaging Report ---
EXAM: CHEST SINGLE (PORTABLE) DATE: 06/24/2019 11:50 AM INDICATION: Fever COMPARISON: 02/16/2019 FINDINGS: The trachea is midline. There is mild prominence of the interstitium. The lungs are otherwise symmetrically expanded without evidence for large focal consolidation, pneumothorax, or significant pleural effusion. The cardiomediastinal silhouette is stable in appearance. The surrounding soft tissues are unremarkable. IMPRESSION: Mildly increased interstitial markings which are nonspecific but can be seen in the setting of edema. No evidence for focal pneumonia. Signed by: Dr. Arpan Mattson MD on 06/24/2019 1:37 PM
[2019-06-24] MEDS ORDERED: DEXTROSE 50% SYRINGE 50 ML IV PRN (15:00)
[2019-06-24] MEDS: ONDANSETRON HCL INJ 2MG/ML 2ML 2 MG/ML VIAL IV PRN (15:30)
[2019-06-24] MEDS: MORPHINE SULFATE 2 MG/ML SYR 1ML IV PRN ×2 (15:30→21:52)
--- NOTE | 2019-06-24 15:52 | Diagnostic Imaging Report ---
CT of the chest, PE protocol, with contrast. History: Fever, lower extremity swelling, hypoxia. Comparison: Coronary CTA from 02/24/2019, CT abdomen/pelvis from 02/16/2019. Technique: Multidetector thin collimation CT scanning of the chest was performed from the level of the apices to the upper abdomen during the pulmonary arterial phase, after intravenous administration of contrast. Coronal and sagittal MIP reformations were obtained. RADIATION DOSE: Total DLP: 615.36 mGy*cm Dose modulation, iterative reconstruction, and/or weight based adjustment of the mA/kV was utilized to reduce the radiation dose to as low as reasonably achievable. FINDINGS: There is adequate opacification of the pulmonary arteries. The main pulmonary artery measures 2.9 cm in maximal diameter. The pulmonary arteries distribute normally without evidence of a filling defect to suggest pulmonary thromboembolism. The thyroid and remaining visualized structures within the base of the neck demonstrate no significant abnormalities. The thoracic aorta is normal course and caliber. The heart is not enlarged. No abnormal pericardial fluid is present. There is no abnormal axillary, mediastinal, or hilar lymph node enlargement. The trachea and proximal airways are patent. There is mild dependent density/atelectasis present bilaterally. There are scattered subpleural nodules present within the right lung measuring up to 0.7 cm (axial image 69). There is no evidence for consolidation, pneumothorax, mass, or pleural effusion. Cholecystectomy clips are noted within the right upper quadrant. The remaining visualized upper abdominal contents demonstrate no significant abnormalities. The osseous structures demonstrate no evidence for acute fracture or destructive process. Partially visualized cervical fusion hardware noted. The extrathoracic soft tissues are unremarkable. IMPRESSION: No evidence for pulmonary thromboembolism or other acute intrathoracic process. Scattered subcentimeter pleural-based nodules identified within the right lung measuring up to 6 mm. In a low-risk patient, no follow-up examination is warranted. In a high-risk patient consider [address] follow-up examination. Signed by: Dr. Arpan Mattson MD on 06/24/2019 3:49 PM
[2019-06-24] MEDS: INSULIN LISPRO 100 UNIT/1 ML 3ML VIAL SQ SCH ×2 (15:56→21:00)
[2019-06-24] MEDS: SODIUM CHLORIDE 0.9% 1000ML 1,000 ML IV SCH (16:03)
[2019-06-24] MEDS ORDERED: SODIUM CHLORIDE 0.9% 50ML 50 ML ONE (16:12)
[2019-06-24] MEDS ORDERED: IOPAMIDOL 370 MG/ML 200 ML INFUS..BTL INJ ONE (16:13)
[2019-06-24] MEDS: PIPER-TAZ 3.375 GM 50 ML IV SCH (17:49)
[2019-06-24 19:47] LABS: CREATINE KINASE MB 1.9 ng/mL (0-5.0)
--- NOTE | 2019-06-24 19:50 | NUR ---
Received patient from ER. Pt AAOx3. Resp even and unlabored. No SOB/rsp distress noted. Skin warm and dry to touch. Able to make needs known. Lt AC 20 zuly clean dry and intact. Murillo draining clear yellow urine to bedside. No complaints at this time. Call light in reach. Bed in locked and low position.
[2019-06-24] MEDS ORDERED: GLIPIZIDE5 MG PO (21:17)
[2019-06-24 21:31] VITALS: BP 147/74
[2019-06-24 22:00] VITALS: BP 147/74
[2019-06-24 22:22] VITALS: BP 147/74
[2019-06-24] MEDS ORDERED: PNEUMOCOCCAL VACCINE POLYVALENT 23 MCG/0.5 ML VIAL IM SCH (23:04)
[2019-06-25] VITALS (7 sets, daily range): BP systolic 116–166; BP diastolic 68–82
[2019-06-25] MEDS ORDERED: ACETAMINOPHEN 325 MG TAB PO PRN
[2019-06-25] MEDS: VANCOMYCIN 750MG/NS 150ML IVPB 150 ML IV SCH ×2 (00:09→11:31)
[2019-06-25] MEDS: PIPER-TAZ 3.375 GM 50 ML IV SCH ×4 (01:22→16:21)
[2019-06-25] MEDS: MORPHINE SULFATE 2 MG/ML SYR 1ML IV PRN ×3 (02:43→11:32)
[2019-06-25 06:31] LABS: BASOPHILS # (AUTO) 0.1 (0.0-0.1); BASOPHILS % 0.5 % (0.0-1.0); EOSINOPHILS # (AUTO) 0.1 (0.0-0.4); EOSINOPHILS % 0.8 % (0.0-6.0); HEMATOCRIT 33.5 % (34.2-44.1); HEMOGLOBIN 10.2 g/dL (12.0-16.0); LYMPHOCYTES # (AUTO) 1.7 (1.0-3.2); LYMPHOCYTES % 16.7 % (18.0-39.1); MEAN CORPUSCULAR HEMOGLOBIN 27.1 pg (28-32); MEAN CORPUSCULAR HGB CONC 30.4 g/dL (31-35); MEAN CORPUSCULAR VOLUME 88.9 fL (81-99); MONOCYTES # (AUTO) 0.8 (0.2-0.8); MONOCYTES % 7.5 % (4.4-11.3); NEUTROPHILS # (AUTO) 7.4 (2.1-6.9); NEUTROPHILS % 74.1 % (38.7-80.0); PLATELET COUNT 196 x10e3/uL (140-360); RED BLOOD COUNT 3.77 x10e6/uL (3.6-5.1); RED CELL DISTRIBUTION WIDTH 14.7 % (11.7-14.4)
[2019-06-25 06:54] LABS: ALANINE AMINOTRANSFERASE 49 IU/L (0-55); ALBUMIN 2.8 g/dL (3.5-5.0); ALBUMIN/GLOBULIN RATIO 0.8 (0.8-2.0); ALKALINE PHOSPHATASE 134 IU/L (40-150); ANION GAP 12.1 mmol/L (8-16); BLOOD UREA NITROGEN 15 mg/dL (7-26); BUN/CREATININE RATIO 17 (6-25); CALCIUM 8.6 mg/dL (8.4-10.2); CARBON DIOXIDE 27 mmol/L (22-29); CHLORIDE 106 mmol/L (98-107); CREATININE, SERUM 0.87 mg/dL (0.57-1.11); EST GLOMERULAR FILTRATION RATE > 60 ML/MIN (60-); GLUCOSE 127 mg/dL (74-118); POTASSIUM 4.1 mmol/L (3.5-5.1); SODIUM 141 mmol/L (136-145)
[2019-06-25] MEDS: INSULIN LISPRO 100 UNIT/1 ML 3ML VIAL SQ SCH ×4 (09:35→21:00)
[2019-06-25] MEDS: ONDANSETRON HCL INJ 2MG/ML 2ML 2 MG/ML VIAL IV PRN (10:20)
[2019-06-25] MEDS: SODIUM CHLORIDE 0.9% 1000ML 1,000 ML IV SCH (11:32)
--- NOTE | 2019-06-25 13:21 | NUR ---
WOUND CARE CONSULT FOR 68 YO FEMALE HX OF cellulitis COLBY 15 ON CONSERVATIVE PUP STATUS AND INTERVENTIONS AND VISCO MATTRESS LABS: WBC-10.01 HGB_10.2 GLUCOSE-127 SKIN ASSESSMENT COMPLETE PATIENT PRESENTS WITH SMALL SCABS TO BILATERAL SHINS REPORTED ABRASIONS BY PATIENT AREAS ARE HEALING WITH NO SIGNS OF INFECTION REDNESS NOTED TO ABDOMINAL FOLD R/T MOISTURE IRRITATION RECOMMENDATIONS: NURSING TO CONTINUE TO MAINTAIN CONSERVATIVE PUP STATUS AND INTERVENTIONS AND VISCO MATTRESS NURSING TO CONTINUE TO ASSIST PATIENT OUT OF BED FOR MEALS AND MUCH TOLERATED NURSING TO CONTINUE TO ASSIST PATIENT NEEDED WITH MEALS AND NUTRITIONAL SUPPLEMENTS TO ENSURE PROPER REQUIREMENTS FOR HEALING NURSING TO CONTINUE TO OFFLOAD FEET AND HEELS NEEDED WITH PILLOW SUSPENSION WHEN IN BED NURSING TO CLEAN ABDOMINAL WITH SOAP AND WATER DAILY AND APPLY ANTI FUNGAL LOTION NURSING TO MONITOR MINOR HEALING SCABS ON BILATERAL SHINS LEAVE OPEN TO AIR Addendum: 06/25/19 at 1329 by Romeo Spring RN Amended: Links added.
[2019-06-25] MEDS: GABAPENTIN 400 MG CAP PO SCH ×2 (16:21→21:19)
[2019-06-25] MEDS: GLIPIZIDE 5 MG TAB PO SCH (16:21)
[2019-06-25] MEDS: TIZANIDINE HCL 4 MG TAB PO SCH ×2 (16:21→21:19)
[2019-06-25] MEDS ORDERED: INSULIN LISPRO 100 UNIT/1 ML 3ML VIAL SQ SCH ×2 (16:30)
[2019-06-25] MEDS ORDERED: NON-FORMULARY MEDICATION (Insulin Lispro (Humalog) 10 UNITS) SC SCH (16:30)
[2019-06-25] MEDS: MORPHINE SULFATE 15MG TAB CR PO SCH (17:00)
[2019-06-25] MEDS ORDERED: NON-FORMULARY MEDICATION (Insulin Glargine (Lantus 3ML Pen) 30 UNITS) SC SCH (17:00)
[2019-06-25] MEDS: INSULIN GLARGINE 100 UNITS/ML VIAL SQ SCH (17:29)
--- NOTE | 2019-06-25 19:27 | NUR ---
walking rounds complete. pt stable at this time.
--- NOTE | 2019-06-25 19:38 | History and Physical ---
HISTORY OF PRESENT ILLNESS: A 68-year-old female with past medical history positive for diabetes, hypertension, chronic pain syndrome, obesity, came to the hospital because of fever and confusion. She was found to have cellulitis of the lower extremities. CT of the chest came back negative for any pulmonary embolism. She did have some pulmonary nodules, admitted to the hospital and started on IV antibiotics. REVIEW OF SYSTEMS: CARDIOVASCULAR: No chest pain or palpitations. RESPIRATORY: No shortness of breath. No cough. GASTROINTESTINAL: No nausea or vomiting. No diarrhea. GENITOURINARY: No frequency or dysuria. ALLERGIES: NOT ALLERGIC TO ANY MEDICATION. PAST MEDICAL HISTORY: 1. Hypertension. 2. Diabetes mellitus type 2. 3. Chronic pain syndrome. SOCIAL HISTORY: She does not smoke. She does not drink. PHYSICAL EXAMINATION: VITAL SIGNS: Blood pressure 149/82, temperature 97.4, heart rate 76 per minute, respiratory rate 16 per minute, oxygen saturation 99%. HEART: Showed regular rhythm. Normal S1, S2 sound. LUNGS: Clear bilaterally. ABDOMEN: Soft, nontender. No distention. EXTREMITIES: Show redness on the right lower extremity with open wounds on both legs. LABORATORY DATA: Urine and blood cultures are negative for 24 hours. Urine culture negative so far. On the BMP; sodium 141, potassium 4.1, chloride 106, CO2 27, BUN 15, creatinine 0.7, glucose 127, calcium 8.6, total bilirubin 1.0, AST 35, ALT 49, alkaline phosphatase 134. CK 62, CK-MB 2.0, troponin 0.028. Total protein 6.1, albumin 2.8, globulin 3.3. On the CBC, white blood count is 10.01, hemoglobin 10.2, hematocrit 33.5, platelet count a 196,000. CT of the chest was done at the emergency room which show no evidence of pulmonary embolism or other acute intrathoracic process, scattered 2 cm pleural based nodule identified within the right lung, measuring up to 6 mm. IMPRESSION: 1. Sepsis. 2. Cellulitis of the right leg. 3. 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 4. Obesity. 5. Chronic pain syndrome. 6. Hypertension. PLAN OF TREATMENT: Continue vancomycin. Continue Zosyn. Continue with normal saline 75 mL an hour, continue aspirin 81 mg daily. Continue Cymbalta 30 mg daily and vancomycin 1 g IV twice a day, Zosyn 3.375 g IV q.6 hours, gabapentin 800 mg q.8 hours, Cymbalta 30 mg daily, glipizide 10 mg twice a day. Continue levothyroxine 75 mcg daily, morphine 10 mg every 4 hours as needed for severe pain, continue morphine 15 mg q.8 hours on the long acting MS Contin and morphine 30 mg q.6 hours as needed for severe pain, multivitamin one tablet daily, Zofran 4 mg IV every 4 hours as needed. Pneumococcal vaccine has been given and Zanaflex 4 mg q.8 hours, amitriptyline 50 mg at bedtime, Lantus 30 units twice a day. Continue Humalog 10 units before supper, 6 units before breakfast. I am going to continue monitoring the blood cultures. MD DANIEL Marmolejo/DEEDEE /[id number]
--- NOTE | 2019-06-25 20:08 | Consultation ---
DATE OF CONSULTATION: 06/25/2019 Pulmonary Medicine Consult REASON FOR REFERRAL: Lung nodules. HISTORY OF PRESENT ILLNESS: Ms. Quevedo is a pleasant 68-year-old female with lung nodules. The patient was admitted to [facility] on June 24, 2019. The patient had cellulitis as admitting issue. The patient was brought into the hospital. No history of lung nodules known to the patient. The patient denies any chronic respiratory illnesses. The patient had swelling of the legs and therefore, CT of chest was done to evaluate for thromboembolic disease. On CT chest, there was no evidence of pulmonary emboli cited, there were multiple lung nodules up to 6 mm in size. The patient for the most part is a lifetime nonsmoker of tobacco. I am consulted for recommendations. PAST MEDICAL HISTORY: Cervical spine injury, nephrolithiasis, paraparesis, diabetes, obesity, C-spine surgery, hysterectomy, and cholecystectomy. The patient is with paraparesis after spinal steroid injection, the patient says. MEDICATIONS: Medication list reviewed per the chart record. ALLERGIES: THE PATIENT WITH ALLERGIES TO NO KNOWN DRUGS. SOCIAL HISTORY: No smoking tobacco. The patient use marijuana for about 5 years. No heavy alcohol recently. 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 FAMILY HISTORY: Noncontributory. REVIEW OF SYSTEMS: GENERAL: No weight changes. OPHTHALMOLOGIC: No double vision. ENT: No mouth ulcers. ENDOCRINE: No thyroid disease. CARDIAC: No AK. PULMONARY: No asthma. IMMUNOLOGIC: No allergies. GI: No constipation. : No blood in urine. DERMATOLOGIC: No rash. NEUROLOGIC: No seizures. PHYSICAL EXAMINATION: VITAL SIGNS: Afebrile, vital signs noted, reviewed per the chart record. GENERAL: In no acute distress, alert and calm in bed. HEENT: Normocephalic and atraumatic. NECK: Supple. Throat midline. LUNGS: Bilateral air entry, limited, but clear. CARDIOVASCULAR: S1 and S2. No murmurs, rubs, or gallops. ABDOMEN: Soft and obese. Nontender. EXTREMITIES: No clubbing. No cyanosis. There is trace to 1+ edema of the legs. INTEGUMENT: Has some redness around the shins, no purpura. IMPRESSION AND PLAN: 1. Multiple lung nodules up to 6 mm size. 2. Treat as lifetime nonsmoker daily. 3. History of marijuana smoking for 5 years, she reports. 4. Spinal injury, paraparesis, walking with difficulty with walker at baseline. 5. History of diabetes. 6. Obesity. 7. Admit with cellulitis of legs. We will try to get more history, as she divulged as more information, but more likely, she will be treated as a nonsmoker. The patient is recommended for repeat CT chest in about 12 months' time. Continue treatment of cellulitis per designated. The patient should have consideration for outpatient sleep studies. Thank you very much, Dr. Barrera, for this consult. Please call for questions. MD ARSLAN Jones/DEEDEE /[id number]
[2019-06-25] MEDS ORDERED: NON-FORMULARY MEDICATION (Amitriptyline Hcl 50 MG) PO SCH (21:00)
[2019-06-25] MEDS: AMITRIPTYLINE HCL 25 MG TAB PO SCH (21:18)
[2019-06-26] VITALS (8 sets, daily range): BP systolic 130–169; BP diastolic 60–99
[2019-06-26] MEDS: VANCOMYCIN 750MG/NS 150ML IVPB 150 ML IV SCH ×2 (00:32→10:53)
[2019-06-26] MEDS: PIPER-TAZ 3.375 GM 50 ML IV SCH ×5 (00:32→23:31)
[2019-06-26] MEDS: MORPHINE SULFATE 15MG TAB CR PO SCH ×3 (01:00→16:31)
[2019-06-26] MEDS: MORPHINE SULFATE 30 MG TAB ER PO PRN ×3 (04:19→20:53)
[2019-06-26] MEDS: INSULIN GLARGINE 100 UNITS/ML VIAL SQ SCH ×3 (04:27→21:00)
[2019-06-26] MEDS: TIZANIDINE HCL 4 MG TAB PO SCH ×3 (06:36→22:38)
[2019-06-26] MEDS: GABAPENTIN 400 MG CAP PO SCH ×3 (06:36→22:42)
--- NOTE | 2019-06-26 07:00 | NUR ---
RECEIVED REPORT FROM PUBLIC HEALTH ANALYST NURSE, PATIENT IS A&OX3 LAYING IN BED, GLASSES ON, RT FA IV 20G SALINE LOCKED, TELEMETRY BOX #[address], HEBERT DRAINING TO GRAVITY, NO DISTRESS NOTED. CALL LIGHT WITHIN REACH, BED IS LOW AND LOCKED, SIDE RAILS UPX2.
[2019-06-26] MEDS ORDERED: INSULIN LISPRO 6 UNIT SC SCH (07:30)
[2019-06-26] MEDS: ASPIRIN 81 MG CHEW TAB PO SCH (08:20)
[2019-06-26] MEDS: DULOXETINE HCL 30 MG DELAYED RELEASE PO SCH (08:20)
[2019-06-26] MEDS: MULTIVITAMINS/MINERALS TAB PO SCH (08:20)
[2019-06-26] MEDS: GLIPIZIDE 5 MG TAB PO SCH (08:20)
[2019-06-26] MEDS: INSULIN LISPRO 100 UNIT/1 ML 3ML VIAL SQ SCH ×6 (08:32→20:17)
[2019-06-26] MEDS: LEVOTHYROXINE SODIUM 75 MCG TAB PO SCH (08:43)
--- NOTE | 2019-06-26 13:55 | Progress Note ---
DATE: Internal Medicine Progress Note SUBJECTIVE: The patient is doing well, no significant complaint. PHYSICAL EXAMINATION: HEART: Showed regular rhythm. Normal S1, S2 sound. LUNGS: Clear bilaterally. EXTREMITIES: Show superficial wounds on both legs with redness on the right leg more than the left leg. VITAL SIGNS: Temperature 98.1, heart rate 67 per minute, respiratory rate 18 per minute, blood pressure 167/69, and pulse oximetry 97%. LABORATORY DATA: BMP, sodium 141, potassium 4.1, chloride 106, CO2 of 27, BUN 15, creatinine 0.7, GFR is 60, and glucose 127. Lactic acid is 1.3, which is normal. Calcium 8.6, total bilirubin 1.0, AST 35, ALT 49, and alkaline phosphatase 134. Troponin negative. Total protein 6.1, albumin 2.8, and globulin 3.3. On CBC, white blood count 10.01, hemoglobin 10.2, hematocrit 33.5, and platelet count of 186,000. Vancomycin trough 10.5. Blood cultures are negative x2. Urine culture shows enterococcus species, so we are going to wait for the final report. FINAL IMPRESSION: 1. Sepsis. 2. Cellulitis of the right leg. 3. 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 4. Obesity. 5. Chronic pain syndrome. 6. Hypertension. PLAN OF TREATMENT: We are going to add hydralazine 10 mg q.8 hours as needed for hypertension. We are going to discontinue normal saline. We are going to continue Zosyn 3.375 g IV q.6 hours, vancomycin 750 mg IV twice a day, Tylenol 650 mg q.4 hours as needed for pain or fever, amitriptyline 50 mg at bedtime, aspirin 81 mg daily, and Cymbalta 30 mg daily, gabapentin 100 mg q.8 hours, glipizide 10 mg twice a day. Continue monitoring blood sugar before meals and at bedtime. The patient received influenza vaccine. Continue Lantus 30 units subcutaneously twice a day; Humalog 6 units before breakfast and 10 units of Humalog before supper; levothyroxine 75 mcg daily; morphine immediate release 30 mg q.6 hours as needed for severe pain, multivitamin one tablet daily, Zanaflex 4 mg q.8 hours, Zofran 4 mg IV q.4 hours as needed. For the diagnosis of UTI, we are going to await for urine culture report. MD DANIEL Marmolejo/DEEDEE /[id number]
[2019-06-26 15:08] LABS: FREE T4 (FREE THYROXINE) 0.87 ng/dL (0.8-1.8); THYROID STIMULATING HORMONE 3.429 uIU/mL (0.350-4.940)
--- NOTE | 2019-06-26 16:10 | Consultation ---
DATE OF CONSULTATION: 06/26/2019 Endocrine Consultation This is a patient of Dr. Barrera. Thank you very much for referring this patient. HISTORY OF PRESENT ILLNESS: This is a 68-year-old white female, who was referred to me for evaluation of uncontrolled diabetes mellitus. The patient reportedly is a known diabetic for almost 10-15 years and takes a combination of the glipizide 10 mg twice daily, Lantus 30 units twice daily and Humalog with each meal. She came to the hospital this time with history of shortness of breath and also swelling of her both lower extremities with cellulitis. She has other medical problems including history of hypertension, hypothyroidism, and on several medications at home. She also takes Synthroid 0.075 mg once daily. She has history of obesity. PHYSICAL EXAMINATION: VITAL SIGNS: Today, the patient is alert, awake, little bit apprehensive. She is moderately overweight. Her heart rate is around 70, blood pressure is 130/80 mmHg. HEENT: Essentially unremarkable. Thyroid is palpable. Clinically, she is near euthyroid. CHEST: Bilateral vesicular breathing. She has mild bronchospasm. CARDIAC: First and second heart sounds. There is no 3rd or 4th heart sounds. Ejection systolic murmur is grade 2/6. EXTREMITIES: The patient has evidence of mild pedal edema. She has evidence of diabetic sensory neuropathy in both lower extremities. CLINICAL IMPRESSION: 1. Diabetes mellitus type 2, uncontrolled with complications. 2. Cellulitis of the lower extremities. 3. Hypothyroidism. 4. Obesity. PLAN: At this time is to do a free T4, TSH, glycohemoglobin, monitor her blood sugars, DC the glipizide and keep her on Humalog 3 times a day. Thanks for the consultation. I will follow this patient with you. MD JUDY Gnosales/DEEDEE /[id number]
--- NOTE | 2019-06-26 19:07 | NUR ---
GAVE REPORT TO ONCOMING NURSE, NO DISTRESS NOTED. BED IS LOW AND LOCKED, SIDE RAILS UPX2, CALL LIGHT WITHIN REACH.
--- NOTE | 2019-06-26 19:10 | NUR ---
BEDSIDE REPORT RECEIVED FROM DAY RN. PT IS ALERT AND ORIENTED X3. RESPIRATIONS ARE EVEN AND UNLABORED. TELE ON. SL LEFT AC- SITE HEALTHY. REMAINS ON RA- TOLERATING WELL. DENIES PAIN. CALL LIGHT WITHIN REACH. BED LOCKED AND IN LOW POSITION.
--- NOTE | 2019-06-26 19:57 | NUR ---
Pulmonary Medicine DATE 06/26/2019 SUBJECTIVE: RA FIO2 no resp distress Patient feeling better stable legs REVIEW OF SYSTEMS: no headaches, no seizures. PHYSICAL EXAMINATION: VITAL SIGNS: vital signs noted, reviewed per the chart record. GENERAL: no acute distress, alert and calm in bed. HEENT: Normocephalic and atraumatic. NECK: Supple. Throat midline. LUNGS: Bilateral air entry, limited, but clear. CARDIOVASCULAR: S1 and S2. No murmurs, rubs, or gallops. ABDOMEN: Soft and obese. Nontender. EXTREMITIES: No clubbing. No cyanosis. trace to 1+ edema of the legs. INTEGUMENT: redness around the shins, no purpura. IMPRESSION AND PLAN: 1. Multiple lung nodules, up to 6 mm size. 2. Treat as a lifetime nonsmoker 3. History of marijuana smoking for 5 years, she reports. 4. Spinal injury, paraparesis, walking with difficulty with walker at baseline. 5. History of diabetes. 6. Obesity. Possible obstructive sleep apnea 7. Admit with cellulitis of legs. Recheck CT chest in about 12 months' time, 06/2020 I explained the rationale for this interval retesting to the patient Continue treatment of cellulitis per designated. Probably should have outpatient sleep studies. Thank you very much, Dr. Barrera, for this consult. Please call for questions.
[2019-06-26] MEDS: AMITRIPTYLINE HCL 25 MG TAB PO SCH (22:38)
[2019-06-26] MEDS ORDERED: INFLUENZA VIRUS VAC SPLIT INJ 0.5 ML SYR IM SCH (23:04)
[2019-06-27] VITALS (8 sets, daily range): BP systolic 112–179; BP diastolic 60–80
[2019-06-27] MEDS: VANCOMYCIN 750MG/NS 150ML IVPB 150 ML IV SCH ×3 (00:43→23:00)
[2019-06-27] MEDS: MORPHINE SULFATE 15MG TAB CR PO SCH ×3 (01:44→16:41)
[2019-06-27] MEDS: GABAPENTIN 400 MG CAP PO SCH ×3 (05:34→22:15)
[2019-06-27] MEDS: PIPER-TAZ 3.375 GM 50 ML IV SCH ×3 (05:34→18:18)
[2019-06-27] MEDS: TIZANIDINE HCL 4 MG TAB PO SCH ×3 (05:39→22:16)
--- NOTE | 2019-06-27 07:27 | NUR ---
RECEIVED REPORT FROM BARYTES GRINDER NURSE, PATIENT IS SLEEPING IN BED, NO DISTRESS NOTED, EVEN AND UNLABORED BREATHING, MENTAL TESTER ON, HEBERT DRAINING TO GRAVITY. BED IS LOW AND LOCKED, SIDE RAILS UPX2, CALL LIGHT WITHIN REACH.
[2019-06-27] MEDS: INSULIN LISPRO 100 UNIT/1 ML 3ML VIAL SQ SCH ×7 (07:30→21:00)
[2019-06-27] MEDS: ASPIRIN 81 MG CHEW TAB PO SCH (09:00)
[2019-06-27] MEDS: DULOXETINE HCL 30 MG DELAYED RELEASE PO SCH (09:00)
[2019-06-27] MEDS: LEVOTHYROXINE SODIUM 75 MCG TAB PO SCH (09:00)
[2019-06-27] MEDS: MULTIVITAMINS/MINERALS TAB PO SCH (09:00)
[2019-06-27] MEDS: INSULIN GLARGINE 100 UNITS/ML VIAL SQ SCH ×2 (09:10→20:38)
[2019-06-27] MEDS: MORPHINE SULFATE 30 MG TAB ER PO PRN (12:02)
--- NOTE | 2019-06-27 12:03 | Progress Note ---
DATE: Internal Medicine Progress Note SUBJECTIVE: The patient is doing well. No significant complaint today. PHYSICAL EXAMINATION: HEART: Showed regular rhythm. Normal S1 and S2 sound. LUNGS: Clear bilaterally. ABDOMEN: Soft. EXTREMITIES: Show decreased redness on both lower extremities. VITAL SIGNS: Blood pressure is under control. LABORATORY DATA: Urine culture showing Enterococcus. Sensitivities still pending. FINAL IMPRESSION: 1. Bilateral leg cellulitis. 2. Fever. 3. Sepsis. 4. Urinary tract infection. 5. 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 6. Obesity. 7. Chronic pain syndrome. 8. Hypertension. PLAN OF TREATMENT: We are going to continue with current IV antibiotic therapy, which include vancomycin and Zosyn. Continue the current insulin regimen with Lantus and Humalog. Continue pain control. Continue hydralazine as needed for hypertension. We are going to wait for the urine culture report to see if there is any kind of sensitivity to Enterococcal, having these way we can choose the right antibiotic prior to sending her home. Otherwise, she is doing okay. MD DANIEL Marmolejo/DEEDEE /[id number]
--- NOTE | 2019-06-27 12:46 | NUR ---
Dr. Barrera returned page, states it is okay to hang current dose of vanco at current time with a vanco trough of 15.6. AILEEN Hurtado, informed of MDs decision.
--- NOTE | 2019-06-27 14:45 | NUR ---
Pulmonary Medicine DATE 06/27/2019 SUBJECTIVE: RA fio2 no respiratory distress legs slowly improving REVIEW OF SYSTEMS: no headaches, no seizures. PHYSICAL EXAMINATION: VITAL SIGNS: vital signs noted, reviewed per the chart record. GENERAL: no acute distress, alert and calm in bed. HEENT: Normocephalic and atraumatic. NECK: Supple. Throat midline. LUNGS: Bilateral air entry, limited, but clear. CARDIOVASCULAR: S1 and S2. No murmurs, rubs, or gallops. ABDOMEN: Soft and obese. Nontender. EXTREMITIES: No clubbing. No cyanosis. trace to 1+ edema of the legs. INTEGUMENT: redness around the shins, no purpura. IMPRESSION AND PLAN: 1. Multiple lung nodules, up to 6 mm size. 2. Treat as a lifetime nonsmoker 3. History of marijuana smoking for 5 years, she reports. 4. Spinal injury, paraparesis, walking with difficulty with walker at baseline. 5. History of diabetes. 6. Obesity. Possible obstructive sleep apnea 7. Admit with cellulitis of legs. Recheck CT chest in about 12 months' time, 06/2020 I explained the rationale for this interval retesting to the patient Continue treatment of cellulitis per designated. I recommend outpatient sleep studies. Thank you very much, Dr. Barrera, for this consult. Please call for questions.
--- NOTE | 2019-06-27 19:15 | NUR ---
GAVE REPORT TO ONCOMING NURSE.
--- NOTE | 2019-06-27 20:09 | NUR ---
RECEIVED PT IN BED AOX3 .CELLULITES.CALL LIGHT WITH IN REACH . TO THE BILATERAL LOWER LEGS TELE SHOWS SR .CONTINUE TO MONITOR
[2019-06-27] MEDS: AMITRIPTYLINE HCL 25 MG TAB PO SCH (20:38)
[2019-06-28] VITALS (8 sets, daily range): BP systolic 139–182; BP diastolic 59–81
[2019-06-28] MEDS: PIPER-TAZ 3.375 GM 50 ML IV SCH ×4 (00:28→17:06)
[2019-06-28] MEDS: MORPHINE SULFATE 30 MG TAB ER PO PRN ×3 (00:28→22:41)
[2019-06-28] MEDS: MORPHINE SULFATE 15MG TAB CR PO SCH ×4 (01:30→22:41)
[2019-06-28] MEDS: GABAPENTIN 400 MG CAP PO SCH ×3 (05:48→22:20)
[2019-06-28] MEDS: TIZANIDINE HCL 4 MG TAB PO SCH ×3 (05:49→22:21)
--- NOTE | 2019-06-28 06:33 | NUR ---
PT C/O PAIN DURING THE NIGHT AND GIVEN ORDERED PAIN MEDICATION .CONTINUE TO MONITOR .CALL LIGHT WITH IN REACH
--- NOTE | 2019-06-28 07:00 | NUR ---
BEDSIDE SHIFT REPORT RECEIVED FROM THE CEO & CO FOUNDER RN. CALL LIGHT WITH IN EASY REACH. INSTRUCTED PT TO USE CALL LIGHT FOR ALL THE NEEDS. EDUCATED PT ABOUT FALL PRECAUTIONS. PT VERBALIZED UNDERSTANDING. BED IS LOW AND LOCKED. SIDE RAILS X2. PT REFUSED BED ALARM. PT DENIES NEEDS AT THIS TIME.
--- NOTE | 2019-06-28 07:20 | NUR ---
BEDSIDE REPORT GIVEN TO THE ONCOMING NURSE .
[2019-06-28] MEDS: INSULIN LISPRO 100 UNIT/1 ML 3ML VIAL SQ SCH ×7 (07:30→21:00)
[2019-06-28] MEDS: HYDRALAZINE HCL 10 MG TAB PO PRN ×2 (08:20→22:41)
[2019-06-28] MEDS: DULOXETINE HCL 30 MG DELAYED RELEASE PO SCH (08:34)
[2019-06-28] MEDS: ASPIRIN 81 MG CHEW TAB PO SCH (08:34)
[2019-06-28] MEDS: LEVOTHYROXINE SODIUM 75 MCG TAB PO SCH (08:35)
[2019-06-28] MEDS: MULTIVITAMINS/MINERALS TAB PO SCH (08:35)
[2019-06-28] MEDS: INSULIN GLARGINE 100 UNITS/ML VIAL SQ SCH ×2 (09:00→22:21)
--- NOTE | 2019-06-28 09:00 | NUR ---
DR. VAIL AT BEDSIDE. INFORMED VANC TROUGH LEVEL 15.8. OKAY TO ADMIN VANCOMYCIN PER THE
--- NOTE | 2019-06-28 10:01 | Progress Note ---
DATE: Internal Medicine Progress Note SUBJECTIVE: The patient is doing well today. OBJECTIVE: VITAL SIGNS: Blood pressure is 182/76, temperature 96.4, heart rate 66 per minute, respiratory rate 18 per minute, oxygen saturation is 100%. HEART: Showed regular rhythm. Normal S1 and S2 sound. LUNGS: Clear bilaterally. ABDOMEN: Soft. EXTREMITIES: Showed decreased redness on both lower extremities. LABORATORY DATA: We have blood work, which showed the following. CBC; white blood count 10.01, hemoglobin 10.2, hematocrit 33.5, platelet count of 186,000. Vancomycin trough is 15.6. Blood cultures are negative. Urine culture showed Enterococcus, sensitive to vancomycin, Zyvox, ampicillin, daptomycin, and penicillin. FINAL IMPRESSION: 1. Sepsis. 2. Urinary tract infection. 3. Cellulitis on the right leg. 4. 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 5. Chronic pain syndrome. 6. Obesity. 7. Uncontrolled hypertension. PLAN OF TREATMENT: We are going to continue with current medication regimen, which include vancomycin 750 mg IV twice a day, Zosyn 3.375 g IV q.6 hours, Tylenol 650 mg q.4 hours as needed for pain or fever, amitriptyline 50 mg at bedtime, aspirin 81 mg daily. Continue monitoring blood sugar before meals and at bedtime. Continue Cymbalta 30 mg daily, gabapentin 800 mg q.8 hours. Continue hydralazine 10 mg q.8 hours as needed for hypertension. Continue Lantus 26 units twice a day, Humalog 6 units with breakfast and 5 units with lunch. Continue levothyroxine 75 mcg daily. Lisinopril has been started at 10 mg daily due to uncontrolled hypertension. Blood pressure was extremely high today in the 180s. She is taking also MS Contin 15 mg q.8 hours and morphine sulfate (Ms Contin) short-acting 30 mg q.6 hours as needed for severe pain. She is taking multivitamin one tablet daily, Zofran 4 mg IV q.4 hours as needed for nausea and vomiting, and finally Zanaflex 4 mg q.8 hours. The patient will stay here for few more days because of Enterococcus in the urine and the need for IV antibiotics for cellulitis of the legs and also optimization of the blood pressure, which is extremely high today and also monitoring of blood sugar. Physical therapy has been ordered. Wound Care consult also. MD DANIEL Marmolejo/DEEDEE /[id number]
--- NOTE | 2019-06-28 10:30 | NUR ---
HEBERT REMOVED PER THE ORDER BY DR. VAIL. PT TOLERATED WELL. 400 ML IN THE HEBERT BAG. PT DENIED FURTHER NEEDS.
[2019-06-28] MEDS: LISINOPRIL 10 MG TAB PO SCH (11:00)
[2019-06-28] MEDS: VANCOMYCIN 750MG/NS 150ML IVPB 150 ML IV SCH ×2 (11:15→22:41)
--- NOTE | 2019-06-28 13:40 | NUR ---
Pulmonary Medicine DATE 06/28/2019 SUBJECTIVE: samaniego removed legs with steady progress UCX with resistant organisms stable breathing REVIEW OF SYSTEMS: no headaches, no seizures. PHYSICAL EXAMINATION: VITAL SIGNS: vital signs noted, reviewed per the chart record. GENERAL: no acute distress, alert and calm in bed. HEENT: Normocephalic and atraumatic. NECK: Supple. Throat midline. LUNGS: Bilateral air entry, limited, but clear. CARDIOVASCULAR: S1 and S2. No murmurs, rubs, or gallops. ABDOMEN: Soft and obese. Nontender. EXTREMITIES: No clubbing. No cyanosis. 1+ edema of the legs. INTEGUMENT: redness around the shins, no purpura. IMPRESSION AND PLAN: 1. Multiple lung nodules, up to 6 mm size. 2. Treat as a lifetime nonsmoker 3. History of marijuana smoking for 5 years, she reports. 4. Spinal injury, paraparesis, walking with difficulty with walker at baseline. 5. History of diabetes. 6. Obesity. Possible obstructive sleep apnea 7. Admit with cellulitis of legs. Recheck CT chest in about 12 months' time, 06/2020 Cointinue treatment of UTI Continue treatment of cellulitis per designated. I recommend outpatient sleep studies. Thank you very much, Dr. Barrera, for this consult. Please call for questions.
--- NOTE | 2019-06-28 19:01 | NUR ---
BEDSIDE SHIFT REPORT GIVEN TO THE ELECTRO WINNING OPERATOR RN. PT DENIED FURTHER NEEDS.
--- NOTE | 2019-06-28 19:33 | NUR ---
Received bedside report from day nurse. Patient awake and resting in bed, no s/s of distress at this time. Bed locked and in low position, call light placed within reach. All safety measures in place. Will continue to monitor.
--- NOTE | 2019-06-28 20:09 | NUR ---
Paged Dr. Barrera to ask if he wants to draw vancomycin trough tonight. Tonight's dose will be fourth dose since last trough, which was 15.6. Awaiting return call at this time.
--- NOTE | 2019-06-28 20:22 | NUR ---
Received return call from Dr. Barrera. Per Dr. Barrera, no need to draw vancomycin trough tonight.
[2019-06-28] MEDS: AMITRIPTYLINE HCL 25 MG TAB PO SCH (22:21)
[2019-06-29] VITALS (8 sets, daily range): BP systolic 96–167; BP diastolic 55–77
[2019-06-29] MEDS: PIPER-TAZ 3.375 GM 50 ML IV SCH ×4 (01:05→17:41)
[2019-06-29] MEDS: MORPHINE SULFATE 15MG TAB CR PO SCH ×3 (01:05→16:30)
[2019-06-29] MEDS: TIZANIDINE HCL 4 MG TAB PO SCH ×3 (06:06→21:51)
[2019-06-29] MEDS: GABAPENTIN 400 MG CAP PO SCH ×3 (06:06→21:51)
[2019-06-29] MEDS: HYDRALAZINE HCL 10 MG TAB PO PRN ×2 (06:17→22:07)
--- NOTE | 2019-06-29 07:00 | NUR ---
BEDSIDE SHIFT REPORT RECEIVED FROM THE LIP CUTTER RN. CALL LIGHT WITH IN EASY REACH. INSTRUCTED PT TO USE CALL LIGHT FOR ALL THE NEEDS. EDUCATED PT ABOUT FALL PRECAUTIONS. PT VERBALIZED UNDERSTANDING. BED IS LOW AND LOCKED. SIDE RAILS X2. BED ALARM IS ON. PT DENIES NEEDS AT THIS TIME.
--- NOTE | 2019-06-29 07:04 | NUR ---
Bedside report given to day nurse. Patient resting in bed with both eyes closed, respirations even and unlabored, no s/s of distress at this time. All safety measures in place.
[2019-06-29] MEDS: INSULIN LISPRO 100 UNIT/1 ML 3ML VIAL SQ SCH ×7 (07:30→21:00)
[2019-06-29] MEDS: INSULIN GLARGINE 100 UNITS/ML VIAL SQ SCH ×2 (09:00→21:51)
[2019-06-29] MEDS: LEVOTHYROXINE SODIUM 75 MCG TAB PO SCH (09:36)
[2019-06-29] MEDS: MULTIVITAMINS/MINERALS TAB PO SCH (09:37)
[2019-06-29] MEDS: LISINOPRIL 10 MG TAB PO SCH (09:37)
[2019-06-29] MEDS: DULOXETINE HCL 30 MG DELAYED RELEASE PO SCH (09:37)
[2019-06-29] MEDS: ASPIRIN 81 MG CHEW TAB PO SCH (09:38)
--- NOTE | 2019-06-29 09:40 | Progress Note ---
DATE: Internal Medicine Progress Note SUBJECTIVE: The patient is sleeping comfortably. OBJECTIVE: EXTREMITIES: Show no evidence of edema or redness. VITAL SIGNS: Blood pressure is 121/57, temperature 96.6, heart rate 63 per minute, respiratory rate is 20 per minute, oxygen saturation 98%. LABORATORY DATA: Blood sugar is 98. CBC, white blood count 10.101, hemoglobin 10.2, hematocrit 33.5, platelet count of 186,000. Last vancomycin trough was 15.6. IMPRESSION: 1. Sepsis. 2. Urinary tract infection. 3. Cellulitis, right leg, which is resolving. 4. 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 5. Chronic pain syndrome. 6. Obesity. 7. Uncontrolled hypertension. PLAN OF TREATMENT: We are going to continue with Zosyn 3.375 g IV q.6 hours, vancomycin 1 g IV twice a day, Tylenol 650 mg q.4 hours as needed for pain or fever, amitriptyline 50 mg at bedtime, aspirin 81 mg daily. Continue monitoring blood sugar before meals and at bedtime, continue Cymbalta 30 mg daily, continue gabapentin 800 mg q.8 hours, continue hydralazine 10 mg q.8 hours as needed for hypertension, continue with Lantus 24 units . Continue levothyroxine 75 mcg daily, lisinopril 10 mg daily, continue with morphine 15 mg q.8 hours extended release and morphine 30 mg q.6 hours as needed for severe pain, multivitamin one tablet daily, Zofran 4 mg IV q.4 hours as needed for nausea and vomiting, and Zanaflex 4 mg q.8 hours. Tentative discharge tomorrow. MD DANIEL Marmolejo/MODL /[id number]
--- NOTE | 2019-06-29 11:18 | NUR ---
DAVIAN TO ADMINISTER VANCOMYCIN PER DR. VAIL.
[2019-06-29] MEDS: VANCOMYCIN 750MG/NS 150ML IVPB 150 ML IV SCH ×2 (11:30→23:04)
--- NOTE | 2019-06-29 12:12 | NUR ---
Received home health order. CM spoke to pt at bedside. Pt states that she is currently on service with [facility] and would like to resume services with them. Choice letter signed. Copy given to pt. IMM letter delivered and discussed with pt. She stated that she will be ready to discharge whenever MD is ready to let her go. Pt signed IMM. Copy left at bedside for pt. CM business card left with pt for any questions / concerns. Signed IMM and choice letter placed in chart. Resumption order and clinical for home health faxed to [facility] at [phone] / P [phone]. Notified of anticipated discharge for tomorrow.
--- NOTE | 2019-06-29 12:40 | NUR ---
Pulmonary Medicine DATE 06/29/2019 SUBJECTIVE: RA fio2 legs better slightly pt still with difficulty mobilizing but closer to baseline few crackles in lung exam REVIEW OF SYSTEMS: no headaches, no seizures. PHYSICAL EXAMINATION: VITAL SIGNS: vital signs noted, reviewed per the chart record. GENERAL: no acute distress, alert and calm in bed. HEENT: Normocephalic and atraumatic. NECK: Supple. Throat midline. LUNGS: Bilateral air entry, few rhonchi, few rales CARDIOVASCULAR: S1 and S2. No murmurs, rubs, or gallops. ABDOMEN: Soft and obese. Nontender. EXTREMITIES: No clubbing. No cyanosis. 1+ edema of the legs. INTEGUMENT: redness around the shins, no purpura. IMPRESSION AND PLAN: 1. Multiple lung nodules, up to 6 mm size. 2. Treat as a lifetime nonsmoker 3. History of marijuana smoking for 5 years, she reports. 4. Spinal injury, paraparesis, walking with difficulty with walker at baseline. 5. History of diabetes. 6. Obesity. Possible obstructive sleep apnea 7. Admit with cellulitis of legs. Recheck CT chest in about 12 months' time, 06/2020 Cointinue treatment of UTI Continue treatment of cellulitis per designated. I recommend outpatient sleep studies. Serial lung exams with crackles Thank you very much, Dr. Barrera, for this consult. Please call for questions.
[2019-06-29] MEDS ORDERED: ONDANSETRON HCL 4 MG ORAL DISINTEGRATING TAB PO PRN (18:15)
--- NOTE | 2019-06-29 19:01 | NUR ---
BEDSIDE SHIFT REPORT GIVEN TO THE BUTTON [employer] MARKER RN. PT DENIED FURTHER NEEDS.
--- NOTE | 2019-06-29 19:34 | NUR ---
Received report from AILEEN West; Pt. A & 0 x 4; Pt.resting comfortably at this time without report of pain at this time. Will continue to monitor.
[2019-06-29] MEDS: MORPHINE SULFATE 30 MG TAB ER PO PRN (20:12)
[2019-06-29] MEDS: AMITRIPTYLINE HCL 25 MG TAB PO SCH (21:50)
[2019-06-30] VITALS: BP 122/57
[2019-06-30] MEDS: PIPER-TAZ 3.375 GM 50 ML IV SCH ×2 (00:45→05:56)
[2019-06-30] MEDS: MORPHINE SULFATE 15MG TAB CR PO SCH ×2 (00:46→08:58)
[2019-06-30 04:00] VITALS: BP 151/69
[2019-06-30] MEDS: GABAPENTIN 400 MG CAP PO SCH (05:56)
[2019-06-30] MEDS: TIZANIDINE HCL 4 MG TAB PO SCH (05:57)
--- NOTE | 2019-06-30 07:05 | NUR ---
Pt. in stable condition at this time; Report given to Bhumika Garza RN
[2019-06-30] MEDS: INSULIN LISPRO 100 UNIT/1 ML 3ML VIAL SQ SCH ×2 (07:30)
[2019-06-30 07:57] VITALS: BP 130/62
[2019-06-30 08:00] VITALS: BP 130/62
[2019-06-30] MEDS: DULOXETINE HCL 30 MG DELAYED RELEASE PO SCH (08:58)
[2019-06-30] MEDS: INSULIN GLARGINE 100 UNITS/ML VIAL SQ SCH (08:58)
[2019-06-30] MEDS: MULTIVITAMINS/MINERALS TAB PO SCH (08:58)
[2019-06-30] MEDS: LISINOPRIL 10 MG TAB PO SCH (08:58)
[2019-06-30] MEDS: ASPIRIN 81 MG CHEW TAB PO SCH (08:58)
[2019-06-30] MEDS: LEVOTHYROXINE SODIUM 75 MCG TAB PO SCH (08:59)
[2019-06-30] MEDS ORDERED: LISINOPRIL10 MG PO (09:53)
[2019-06-30] MEDS ORDERED: AUGMENTIN 875-1 EACH PO (09:53)
[2019-06-30] MEDS ORDERED: LIPITOR20 MG PO (09:53)
[2019-06-30] MEDS ORDERED: LANTUS 3ML100 UNITS/ SQ (09:54)
--- NOTE | 2019-06-30 10:52 | NUR ---
Left upper arm IV discontinued. No signs of infiltration noted. 2x2 gauze and coban placed. Taken via wheelchair to personal car. waiting for patient. AAOX3 to time, person, place. Respirations even and unlabored. Discharge instructions, rx, and all personal belongings taken with patient.
--- NOTE | 2019-06-30 11:04 | Discharge Summary ---
HISTORY: The patient is a 68-year-old female with past medical history positive for diabetes, hypertension, chronic pain syndrome, came here with very high fever. The patient was found to have urinary tract infection, cellulitis of the right leg. She was started on antibiotics, which were vancomycin and Zosyn. Fever went away. The urine showed Enterococcus, sensitive to vancomycin. She completed a course of vancomycin. She is going home with Augmentin. Blood culture came back negative. PHYSICAL EXAMINATION: VITAL SIGNS: Blood pressure 130/62, temperature 96.3, heart rate 54 per minute, respiratory rate 19 per minute, O2 saturation 97%. HEART: Showed regular rhythm. Normal S1 and S2 sound. LUNGS: Clear bilaterally. ABDOMEN: Soft. EXTREMITIES: Showed decreased redness on both lower extremities and also she got open wounds, superficial wounds on both legs. LABORATORY DATA: On the CBC; white blood count 10.01, hemoglobin 10.2, hematocrit 33.5, platelet count 196,000. On the BMP; blood sugar 110. Sodium 141, potassium 4.1, chloride 106, CO2 of 27, BUN 15, creatinine 0.87, glucose 127. Blood cultures negative. Urine culture showed Enterococcus faecium. IMPRESSION: 1. Sepsis secondary to urinary tract infection. 2. Urinary tract infection. 3. Cellulitis of the right leg. 4. 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 5. Chronic pain syndrome. 6. Obesity. 7. Hypertension. PLAN OF TREATMENT: The patient is going to be discharged home on the following medications. She will continue with Augmentin 875 mg twice a day for 5 more days, Tylenol 650 mg q.4 hours as needed for pain or fever, Elavil 50 mg at bedtime, aspirin 81 mg daily. Continue monitoring blood sugar before meals and at bedtime. Continue gabapentin 800 mg q.8 hours. Continue Cymbalta 30 mg daily. Continue with Lantus 24 units to be taken twice a day, Humalog 6 units with breakfast, 5 units with lunch, 10 units with dinner, levothyroxine 75 mcg daily, lisinopril 10 mg daily, multivitamin one tablet daily, Zanaflex 4 mg a day every 8 hours. Diet is going to be 1800 calorie ADA diet. Follow up with me in a week. MD DANIEL Marmolejo/DEEDEE /[id number]
== END 2019-06-30 10:52 | disposition home health service (06) | DRG 872 ==
LOC: ER 11:48 → ERHOLD 14:57 → MED/SURG2 19:49
PROVIDERS: ADMIT Internal Medicine; ATTEND Internal Medicine
DX: A41.9 Sepsis, unspecified organism (principal); L03.115 Cellulitis of right lower limb; G82.20 Paraplegia, unspecified; N39.0 Urinary tract infection, site not specified; Z68.42 Body mass index [BMI] 45.0-49.9, adult; G89.4 Chronic pain syndrome; E11.40 Type 2 diabetes mellitus with diabetic neuropathy, unspecified; Z79.4 Long term (current) use of insulin; I10 Essential (primary) hypertension; E03.9 Hypothyroidism, unspecified; R91.8 Other nonspecific abnormal finding of lung field; T14.8XXS Other injury of unspecified body region, sequela; F12.10 Cannabis abuse, uncomplicated; B95.2 Enterococcus as the cause of diseases classified elsewhere; E11.65 Type 2 diabetes mellitus with hyperglycemia; E66.9 Obesity, unspecified
CPT/HCPCS: 36415; 51700; 71045; 71260; 80053; 80202; 81001; 82550; 82553; 82948; 83036; 83605; 84439; 84443; 84484; 85025; 85379; 85610; 85730; 87040; 87086; 87186; 93005; 93970; 96372; 97139; 99251; 99285; J1815; J2270; J2405; J2543; J3370; J7030; J7040; Q9967

== ENCOUNTER → 2019-08-09 | Day surgery (SDC) | payer MEDICARE, OTHER ==
[2019-08-05 11:56] LABS: BASOPHILS % 0.6 % (0.0-1.0); EOSINOPHILS # (AUTO) 0.5 (0.0-0.4); EOSINOPHILS % 7.6 % (0.0-6.0); HEMATOCRIT 36.5 % (34.2-44.1); HEMOGLOBIN 11.5 g/dL (12.0-16.0); LYMPHOCYTES # (AUTO) 1.8 (1.0-3.2); MEAN CORPUSCULAR HEMOGLOBIN 26.9 pg (28-32); MEAN CORPUSCULAR HGB CONC 31.5 g/dL (31-35); MEAN CORPUSCULAR VOLUME 85.5 fL (81-99); MONOCYTES # (AUTO) 0.4 (0.2-0.8); MONOCYTES % 6.6 % (4.4-11.3); NEUTROPHILS # (AUTO) 3.5 (2.1-6.9); NEUTROPHILS % 56.2 % (38.7-80.0); PLATELET COUNT 244 x10e3/uL (140-360); RED BLOOD COUNT 4.27 x10e6/uL (3.6-5.1); RED CELL DISTRIBUTION WIDTH 14.1 % (11.7-14.4)
--- NOTE | 2019-08-05 12:05 | Diagnostic Imaging Report ---
EXAMINATION: CHEST 2 VIEWS INDICATION: Pre-operative COMPARISON: Chest radiograph 06/24/2019 FINDINGS: LINES/TUBES:None LUNGS:The lungs are well-inflated. No focal consolidation or pulmonary edema. PLEURA:No pleural effusion or pneumothorax. MEDIASTINUM:The cardiomediastinal silhouette appears normal in size and shape. BONES/SOFT TISSUES:No acute osseous injury. Cervical spine fusion hardware. ABDOMEN:No free air under the diaphragm. Status post cholecystectomy. IMPRESSION: No focal pneumonia or pulmonary edema. Signed by: Lurdes Leong MD on 08/05/2019 12:02 PM
[2019-08-05 12:30] LABS: ANION GAP 12.7 mmol/L (8-16); BLOOD UREA NITROGEN 17 mg/dL (7-26); BUN/CREATININE RATIO 19 (6-25); CALCIUM 8.7 mg/dL (8.4-10.2); CARBON DIOXIDE 26 mmol/L (22-29); CHLORIDE 101 mmol/L (98-107); CREATININE, SERUM 0.91 mg/dL (0.57-1.11); EST GLOMERULAR FILTRATION RATE > 60 ML/MIN (60-); GLUCOSE 236 mg/dL (74-118); POTASSIUM 3.7 mmol/L (3.5-5.1); SODIUM 136 mmol/L (136-145)
[~2019-08-09] MED LIST changes: +AUGMENTIN 875-1 EACH PO; +B&O 60MG R/S 60 MG SUPP PR ONE; +BUPIVACAINE HCL 0.5% INJ 30 ML VIAL INJ ONE; +CEFTRIAXONE SOD 1 GM/NS 50 ML 50 ML IV ONE; +CLONAZEPAM1 MG PO; +DEXAMETHASONE SOD PHOS INJ 4 MG/ML VIAL ONE; +FENTANYL CITRATE/PF 100MCG/2 ML INJ ONE; +GENTAMICIN 80MG/NS 100 ML 100 ML IV ONE; +GLIPIZIDE5 MG PO; +IOPAMIDOL 300MG/ML 50ML INFUS..BTL IV ONE; +KETOROLAC TROMETHAMINE 30 MG/ML VIAL ONE; +LANTUS 3ML100 UNITS/ SQ; +LIDOCAINE HCL 2% LOCAL INJ 5 ML SDV VIAL INJ ONE; +LIPITOR20 MG PO; +LISINOPRIL10 MG PO; +MIDAZOLAM HCL 2 MG/2 ML VIAL ONE; +ONDANSETRON HCL INJ 2MG/ML 2ML 2 MG/ML VIAL ONE; +PROPOFOL IV EMULSION 10 MG/ML 20 ML VIAL ONE; +SEVOFLURANE INHAL SOLN 250 ML PEN BTL ONE
--- OUTSIDE RECORDS SUMMARY | 2019-08-09 05:39 | XMS REPORT ---
Author Author [facility] t Organization [facility] Address [address] [place] [place] [address] Phone Unavailable Care Team Providers Care Starting Gate Driver Name Role Phone YARED KOCH, PATRICK PCP HAMPEL, GRETA Attphys Unavailable YARED, PATRICK Attphys Unavailable YARED, PATRICK Admphys Unavailable Payers Payer Name Policy Type Policy Number Effective Date Expiration Date Desiree colbert Medicare A & B [id number] 2015 00:00:00 [facility] [place] Indemnity [id number] 2015 00:00:00 [facility] Medicare A & B [id number] 2015 00:00:00 Meaghan PHILIPPE [facility] [place] Indemnity [id number] 2015 00:00:00 [facility] Problems Condition Name Condition Details Condition Category Status Onset Date Resolution Date Last Treatment Date Treating Clinician Comments Source Abnormal electrocardiography Abnormal ECG Problem Active [facility] Altered mental status Altered mental status Problem Active [facility] Dehydration Dehydration Problem Active [facility] Sepsis Sepsis Problem Active [facility] Vomiting and diarrhea Vomiting and diarrhea Problem Active [facility] Cellulitis Cellulitis Problem Active [facility] Allergies, Adverse Reactions, Alerts This patient has no known allergies or adverse reactions. Medications Ordered Medication Name Filled Medication Name Start Date Stop Da te Current Medication? Ordering Clinician Indication Dosage Frequency Signature (SIG) Comments Components Source Amitriptyline Hcl 50 Mg Tablet Amitriptyline Hcl 50 Mg Tablet Yes 50 Bedtime [facility] Amoxicillin/Potassium Clav (Augmentin 875-125 Tablet) 1 Each Tablet Amoxicillin/Potassium Clav (Augmentin 875-125 Tablet) 1 Each Tablet Yes 875 Every 12 Hours [facility] Aspirin (Aspir 81) 81 Mg Tablet. Aspirin (Aspir 81) 81 Mg Tablet. Yes Daily [facility] Atorvastatin Calcium (Lipitor) 20 Mg Tablet Atorvastat in Calcium (Lipitor) 20 Mg Tablet Yes 20 Bedtime [facility] Duloxetine Hcl (Cymbalta) 30 Mg Capsule. Duloxetine Hcl (Cymbalta) 30 Mg Capsule. Yes 30 Daily [facility] Gabapentin 400 Mg Capsule Gabapentin 400 Mg Capsule Yes 800 Every 8 Hours [facility] Glipizide 5 Mg Tablet Glipizide 5 Mg Tablet Yes 10 Twice A Day [facility] Insulin Glargine (Lantus 3ML Pen) 100 Units/1 Ml Inj I nsulin Glargine (Lantus 3ML Pen) 100 Units/1 Ml Inj Yes 24 Every 12 H ours [facility] Insulin Lispro (Humalog) 100 Unit/1 Ml Insuln.pen Insu augustus Lispro (Humalog) 100 Unit/1 Ml Insuln.pen Yes 6 Before Breakfast [facility] Insulin Lispro (Humalog) 100 Unit/1 Ml Cartridge Insul in Lispro (Humalog) 100 Unit/1 Ml Cartridge Yes 10 Before Supper [facility] Levothyroxine Sodium 75 Mcg Tablet Levothyroxine Sodium 75 Mcg Tablet Yes 75 Daily [facility] Lisinopril 10 Mg Tablet Lisinopril 10 Mg Tablet Yes 10 Daily [facility] Morphine Sulfate (Morphine Sulfate Er) 30 Mg Tablet.er Morphine Sulfate (Morphine Sulfate Er) 30 Mg Tablet.er Yes 15 Every 8 Hours [facility] Morphine Sulfate (Ms Contin) 30 Mg Tablet.er Morphine Sulfate (Ms Contin) 30 Mg Tablet.er Yes 30 Every 6 Hours [facility] Multivitamin (Multi-Vitamin Daily) 1 Each Tablet Multi vitamin (Multi-Vitamin Daily) 1 Each Tablet Yes [facility] Tizanidine Hcl 4 Mg Tablet Tizanidine Hcl 4 Mg Tablet Yes 4 Every 8 Hours [facility] Insulin Glargine (Lantus 3ML Pen) 100 Units/1 Ml Inj, 30 Subcutaneously Insulin Glargine (Lantus 3ML Pen) 100 Units/1 Ml Inj, 30 Subcutaneously 2019-06-30 00:00:00 No 30 Twice A Day [facility] Linagliptin (Tradjenta) 5 Mg Tablet, Mg Oral Linaglip tin (Tradjenta) 5 Mg Tablet, Mg Oral 2019-06-24 00:00:00 No Daily [facility] Procedures Procedure Date / Time Performed Performing Clinician [facility] Computed tomography of chest with contrast 2019-06-24 00:00:00 JOE COOL [facility] Ultrasound, renal 2019-06-01 00:00:00 GRETA COLES [facility] Computed tomography angiography of coronary arteries [facility] calcium scoring 2019-02-24 00:00:[address] [facility] INSERTION OF INFUSION DEV INTO SUP VENA CAVA, PERC APPROACH 2019-02-17 00:00:00 JOE ANTONY [facility] DRAINAGE OF SPINAL CANAL, PERCUTANEOUS APPROACH, DIAGNOSTIC 2019-02-17 00:00:00 SAUNDRAJOE [facility] Computed tomography of brain without radiopaque contrast 201 12-02-25 00:00:00 WESTERV[facility] Computed tomography of abdomen and pelvis with contrast 2018 00:00:00 WESTERVILLETOMAS [facility] INTRODUCTION OF INFLUENZA VACCINE INTO MUSCLE, PERC AP PROACH 2019-02-16 00:00:00 [facility] INTRODUCTION OF SERUM/TOX/VACCINE INTO MUSCLE, PERC AP PROACH 2019-02-16 00:00:00 [facility] Encounters Start Date/Time End Date/Time Encounter Type Admission Type Attendi [facility] Care Department Encounter ID Source 2019-06-24 14:57:00 2019-06-30 10:52:00 Discharged Inpatient 1 [facility] [id number] [facility] 2019-06-01 09:25:00 2019-06-01 09:25:00 Registered Clinic 3 [facility] [id number] [facility] 2019-02-16 16:59:00 2019-02-25 16:53:00 Discharged Inpatient 1 [facility] [id number] [facility] Results Test Description Test Time Test Comments Results Result Comments Source CHEST 2 VIEWS 2019-08-05 12:01:00 [facility] [address] [place] [address] Patient Name: TRAN GUAN MR #: [id number] : 1950 Age/Sex: 68/F Req #: [id number] Adm Physician: Ordered by: GRETA COLES MD Report #: [id number] Location: OR Room/Bed: Procedure: [id number] DX/CHEST 2 VIEWS Exam Date: 08/05/19 Exam Time: 1124 REPORT STATUS: Signed EXAMINATION: CHEST 2 VIEWS INDICATION: Pre-operative COMPARISON: Chest radiograph 06/24/2019 FINDINGS: LINES/TUBES:None LUNGS:The lungs are well-inflated. No focal consolidation or pulmonary edema. PLEURA:No pleural effusion or pneumothorax. MEDIASTINUM:The cardiomediastinal silhouette appears normal in size and shape. BONES/SOFT TISSUES:No acute osseous injury. Cervical spine fusion hardware. ABDOMEN:No free air under the diaphragm. Status post cholecystectomy. IMPRESSION: No focal pneumonia or pulmonary edema. Signed by: Brent Merritt MD on 08/05/2019 12:02 PM Dictated By: BRENT MERRITT MD 1202 Transcribed By: KOREY on 08/05/19 1202 COPY TO: GRETA COLES MD Bedside Glucose 2019-06-30 14:49:00 Test Item Bedside Glucose (test code = 59991-7) 74 70-120 Meter ID: [id number] [facility]illus [facility] CenterBlood Culture 2019-06-29 12:31:00* Test Item Value Reference Range Interpretation Comments Blood Culture (test code = 94267519) NO GROWTH AFTER 5 DAYS, FINAL REPORT [facility] CenterVancomycin Level Piasnt8714-27-83 10:36:00* Test Item Value Reference Range Interpretation Comments Vancomycin Level Trough (test code = 4092-3) 17.8 5.0-10.0 Results repeated and called to FEROZ LIANG at 1035 on 06/29/19 by Tony posey. Read back and verified.[facility] CenterHemoglobin A1c Ihbcdxn6275-87-83 15:39:00* Test Item Value Reference Range Interpretation Comments Hemoglobin A1c Percent (test code = Hemoglobin A1c Percent) 7.9 4.0-7.0 [facility] CenterFree Zuzruccrj2411-78-65 15:09:00* Test Item Value Reference Range Interpretation Comments Free Thyroxine (test code = 3024-7) 0.87 0.8-1.8 [facility] CenterThyroid Stimulating Hormone (TSH) 2019-06-26 15:09:00* Test Item Value Reference Range Interpretation Comments Thyroid Stimulating Hormone (TSH) (test code = 87218-0) 3.429 0.350-4.940 [facility] CenterCreatine Kinase BE1249-04-71 07:20:00* Test Item Value Reference Range Interpretation Comments Creatine Kinase MB (test code = 14059-0) 2.00 0-5.0 [facility] CenterTroponin [id number] 07:20:00* Test Item Value Reference Range Interpretation Comments Troponin I (test code = 72631-1) 0.028 0-0.300 [facility] CenterCreatine Tmzjai2650-10-22 07:10:00* Test Item Value Reference Range Interpretation Comments Creatine Kinase (test code = 2157-6) 62 29-168 [facility] Wfsxm6700-36-30 07:06:00* Test Item Value Reference Range Interpretation Comments Sodium Level (test code = 2951-2) 141 136-145 [facility] CenterPotassium Ujhyv8714-74-21 07:06:00* Test Item Value Reference Range Interpretation Comments Potassium Level (test code = 2823-3) 4.1 3.5-5.1 [facility] CenterChloride Jffvt2348-98-07 07:06:00* Test Item Value Reference Range Interpretation Comments Chloride Level (test code = 2075-0) 106 98-107 [facility] CenterCarbon Dioxide Qpkvb3670-14-53 07:06:00* Test Item Value Reference Range Interpretation Comments Carbon Dioxide Level (test code = 2028-9) 27 22-29 [facility] CenterAnion Vme9139-02-21 07:06:00* Test Item Value Reference Range Interpretation Comments Anion Gap (test code = 80977-3) 12.1 8-16 [facility] CenterBlood Urea Oxlaobao0510-28-90 07:06:00* Test Item Value Reference Range Interpretation Comments Blood Urea Nitrogen (test code = 3094-0) 15 7-26 [facility] CenterCreatinine2020-04-03 07:06:00* Test Item Value Reference Range Interpretation Comments Creatinine (test code = 2160-0) 0.87 0.57-1.11 [facility] CenterBUN/Creatinine Sline0211-50-37 07:06:00* Test Item Value Reference Range Interpretation Comments BUN/Creatinine Ratio (test code = 3097-3) 17 6-25 [facility] CenterEstimat Glomerular Filtration Rate 2019-06-25 07:06:00* Test Item Value Reference Range Interpretation Comments Estimat Glomerular Filtration Rate (test code = 354422910) > 60 >60 Ranges were taken from the National Kidney Disease Education Program and the [facility] Kidney Foundation literature.Reference ranges:60 or greater: Cmdagw84-68 ( for 3 consecutive months): Chronic kidney disease 15 or less: Kidney failureSaint Camillus Medical CenterGlucose Vozmm7054-28-34 07:06:00* Test Item Value Reference Range Interpretation Comments Glucose Level (test code = OAV6736) 127 74-118 [facility] CenterCalcium Xdcfw1929-26-61 07:06:00* Test Item Value Reference Range Interpretation Comments Calcium Level (test code = 50222-3) 8.6 8.4-10.2 [facility] CenterTotal Ivzcjpvgp6995-48-48 07:06:00* Test Item Value Reference Range Interpretation Comments Total Bilirubin (test code = 1975-2) 1.0 0.2-1.2 [facility] CenterAspartate Amino Transf (AST/SGOT) 2019-06-25 07:06:00* Test Item Value Reference Range Interpretation Comments Aspartate Amino Transf (AST/SGOT) (test code = Aspartate Amino Transf (AST/SGOT)) 35 5-34 [facility] CenterAlanine Aminotransferase (ALT/SGPT) 2019-06-25 07:06:00* Test Item Value Reference Range Interpretation Comments Alanine Aminotransferase (ALT/SGPT) (test code = 1742-6) 49 0-55 [facility] CenterTotal Wzvylvc3368-57-06 07:06:00* Test Item Value Reference Range Interpretation Comments Total Protein (test code = 2885-2) 6.1 6.5-8.1 [facility] CenterAlbumin2020-04-03 07:06:00* Test Item Value Reference Range Interpretation Comments Albumin (test code = 1751-7) 2.8 3.5-5.0 [facility] CenterGlobulin2020-04-03 07:06:00* Test Item Value Reference Range Interpretation Comments Globulin (test code = 42351-9) 3.3 2.3-3.5 [facility] CenterAlbumin/Globulin Evibv7784-65-54 07:06:00 * Test Item Value Reference Range Interpretation Comments Albumin/Globulin Ratio (test code = 1759-0) 0.8 0.8-2.0 [facility] CenterAlkaline Anditnegkzw7501-67-43 07:06:00* Test Item Value Reference Range Interpretation Comments Alkaline Phosphatase (test code = 6768-6) 134 40-150 [facility] CenterWhite Blood Mzfcd9342-23-14 06:34:00* Test Item Value Reference Range Interpretation Comments White Blood Count (test code = 6690-2) 10.01 4.8-10.8 [facility] CenterRed Blood Yeajm7969-60-61 06:34:00* Test Item Value Reference Range Interpretation Comments Red Blood Count (test code = 789-8) 3.77 3.6-5.1 [facility] CenterHemoglobin2020-04-03 06:34:00* Test Item Value Reference Range Interpretation Comments Hemoglobin (test code = 96301-5) 10.2 12.0-16.0 [facility] CenterHematocrit2020-04-03 06:34:00* Test Item Value Reference Range Interpretation Comments Hematocrit (test code = 4544-3) 33.5 34.2-44.1 [facility] CenterMean Corpuscular Begxrp3776-29-08 06:34:00* Test Item Value Reference Range Interpretation Comments Mean Corpuscular Volume (test code = 787-2) 88.9 81-99 [facility] CenterMean Corpuscular Zjthxqgiir2349-15-85 06:34:00* Test Item Value Reference Range Interpretation Comments Mean Corpuscular Hemoglobin (test code = 785-6) 27.1 28-32 [facility] CenterMean Corpuscular Hemoglobin Concent 2019-06-25 06:34:00* Test Item Value Reference Range Interpretation Comments Mean Corpuscular Hemoglobin Concent (test code = 786-4) 30.4 31-35 [facility] CenterRed Cell Distribution Cflgx5421-82-00 06:34:00* Test Item Value Reference Range Interpretation Comments Red Cell Distribution Width (test code = 82858-4) 14.7 11.7 -14.4 [facility] CenterPlatelet Qkoir9296-25-46 06:34:00* Test Item Value Reference Range Interpretation Comments Platelet Count (test code = 777-3) 196 140-360 [facility] CenterNeutrophils (%) (Auto)2019-06-25 06:34:00 * Test Item Value Reference Range Interpretation Comments Neutrophils (%) (Auto) (test code = 43815-8) 74.1 38.7-80.0 [facility] CenterLymphocytes (%) (Auto)2019-06-25 06:34:00 * Test Item Value Reference Range Interpretation Comments Lymphocytes (%) (Auto) (test code = 736-9) 16.7 18.0-39.1 [facility] CenterMonocytes (%) (Auto)2019-06-25 06:34:00* Test Item Value Reference Range Interpretation Comments Monocytes (%) (Auto) (test code = 5905-5) 7.5 4.4-11.3 [facility] CenterEosinophils (%) (Auto)2019-06-25 06:34:00 * Test Item Value Reference Range Interpretation Comments Eosinophils (%) (Auto) (test code = 713-8) 0.8 0.0-6.0 [facility] CenterBasophils (%) (Auto)2019-06-25 06:34:00* Test Item Value Reference Range Interpretation Comments Basophils (%) (Auto) (test code = 706-2) 0.5 0.0-1.0 [facility] CenterIM GRANULOCYTES %2019-06-25 06:34:00* Test Item Value Reference Range Interpretation Comments IM GRANULOCYTES % (test code = IM GRANULOCYTES %) 0.4 0.0- 1.0 [facility] CenterNeutrophils # (Auto)2019-06-25 06:34:00* Test Item Value Reference Range Interpretation Comments Neutrophils # (Auto) (test code = 751-8) 7.4 2.1-6.9 [facility] CenterLymphocytes # (Auto)2019-06-25 06:34:00* Test Item Value Reference Range Interpretation Comments Lymphocytes # (Auto) (test code = 20860-0) 1.7 1.0-3.2 [facility] CenterMonocytes # (Auto)2019-06-25 06:34:00* Test Item Value Reference Range Interpretation Comments Monocytes # (Auto) (test code = 742-7) 0.8 0.2-0.8 [facility] CenterEosinophils # (Auto)2019-06-25 06:34:00* Test Item Value Reference Range Interpretation Comments Eosinophils # (Auto) (test code = 711-2) 0.1 0.0-0.4 [facility] CenterBasophils # (Auto)2019-06-25 06:34:00* Test Item Value Reference Range Interpretation Comments Basophils # (Auto) (test code = 704-7) 0.1 0.0-0.1 [facility] CenterAbsolute Immature Granulocyte (auto 2019-06-25 06:34:00* Test Item Value Reference Range Interpretation Comments Absolute Immature Granulocyte (auto (mirtha t code = Absolute Immature Granulocyte (auto) 0.04 0-0.1 [facility] CenterCT CHEST R4293-66-89 15:37:00 [place] [address] Patient Name: TRAN GUAN MR #: [id number] : 1950 Age/Sex: 68/F Req #: [id number] Adm Physician: PATRICK VAIL MD Ordered by: JOE BYRNE NP Report #: [id number] Location: [facility] Room/Bed: [place] [address] Procedure: [id number] CT/ CT CHEST W Exam Date: 06/24/19 Exam Time: 1503 REPORT STATUS: Signed CT of the chest, PE protocol, with contrast. History: Fever, lower extremity swell ing, hypoxia. Comparison: Coronary CTA from 02/24/2019, CT abdomen/pelvis fr om 02/16/2019. Technique: Multidetector thin collimation CT scanning of t he chest was performed from the level of the apices to the upper abdomen durin g the pulmonary arterial phase, after intravenous administration of contrast. Coronal and sagittal MIP reformations were obtained. RADIATION DOSE: Total DLP: 615.36 mGy*cm Dose modulation, iterative reconstruction, a nd/or weight based adjustment of the mA/kV was utilized to reduce the radiatio n dose to as low as reasonably achievable. FINDINGS: There is adequate opacification of the pulmonary arteries. The main pulmonary artery measures 2 .9 cm in maximal diameter. The pulmonary arteries distribute normally without evidence of a filling defect to suggest pulmonary thromboembolism. The th yroid and remaining visualized structures within the base of the neck demonstr ate no significant abnormalities. The thoracic aorta is normal course and c aliber. The heart is not enlarged. No abnormal pericardial fluid is present. T here is no abnormal axillary, mediastinal, or hilar lymph node enlargement. The trachea and proximal airways are patent. There is mild dependent densit y/atelectasis present bilaterally. There are scattered subpleural nodules pres ent within the right lung measuring up to 0.7 cm (axial image 69). There is no evidence for consolidation, pneumothorax, mass, or pleural effusion. Iveth cystectomy clips are noted within the right upper quadrant. The remaining visu alized upper abdominal contents demonstrate no significant abnormalities. T he osseous structures demonstrate no evidence for acute fracture or destructiv e process. Partially visualized cervical fusion hardware noted. The extrathora cic soft tissues are unremarkable. IMPRESSION: No evidence for pulm onary thromboembolism or other acute intrathoracic process. Scattered subce ntimeter pleural-based nodules identified within the right lung measuring up t o 6 mm. In a low-risk patient, no follow-up examination is warranted. In a hig h-risk patient consider [address] follow-up examination. Signed by: Dr. Bessy Mattson MD on 06/24/2019 3:49 PM Dictated By: ARPAN MATTSON MD Electro nically Signed By: ARPAN MATTSON MD on 06/24/191548 Transcribed By: KOREY on 06/24/191548 COPY TO: JOE BYRNE [employer] CHEST SINGLE (PORTABLE)2019-06-24 13:34:00 [place] [address] Patient Name: TRAN GUAN MR #: [id number] : 1950 Age/Sex: 68/F Req #: [id number] Adm Physician: Ordered by: JOE BYRNE [employer] Report #: [id number] Location: ER Room/Bed: Procedure: [id number] DX/C HEST SINGLE (PORTABLE) Exam Date: 06/24/19 Exam Time : 1256 REPORT STATUS: Signed EXA M: CHEST SINGLE (PORTABLE) DATE: 06/24/2019 11:50 AM INDICATION: Feve r COMPARISON: 02/16/2019 FINDINGS: The trachea is midline. There is mild prominence of the interstitium. The lungs are otherwise symmetrically ex panded without evidence for large focal consolidation, pneumothorax, or signif icant pleural effusion. The cardiomediastinal silhouette is stable in appea kalyn. The surrounding soft tissues are unremarkable. IMPRESSION: Mildly increased interstitial markings which are nonspecific but can be seen in the setting of edema. No evidence for focal pneumonia. Signed by: Dr. Arpan Mattson MD on 06/24/2019 1:37 PM Dictated By: ARPAN MATTSON MD Electron ically Signed By: ARPAN MATTSON MD on 06/24/191336 Transcribed By: KOREY on 0 06/24/191336 COPY TO: JOE BYRNE NP D-Dimer Quantitative (PE/DVT)2019-06-24 13:12:00* Test Item Value Reference Range Interpretation Comments D-Dimer Quantitative (PE/DVT) (test code = 16243-4) 0.56 0. 00-0.45 As with all in vitro diagnostic tests, the test results should be interpreted by the physician in conjunction with clinical findings and other test results.Test results are reported in NEW D-dimer units(ug/mLFEU).[facility] CenterUrine Byfqa4125-65-26 13:12:00* Test Item Value Reference Range Interpretation Comments Urine Color (test code = 5778-6) YELLOW YELLOW [facility] CenterUrine Zgapjcg5918-94-46 13:12:00* Test Item Value Reference Range Interpretation Comments Urine Clarity (test code = 56857-3) CLEAR CLEAR [facility] CenterUrine Specific Yoewyrn1927-77-18 13:12:00 * Test Item Value Reference Range Interpretation Comments Urine Specific [place] (test code = 5811-5) 1.025 1.010-1.02 5 [facility] CenterUrine qF4113-80-26 13:12:00* Test Item Value Reference Range Interpretation Comments Urine pH (test code = 71191-0) 7 5-7 [facility] CenterU[facility] Leukocyte Ezrtnafl1871-50-74 13:12:00* Test Item Value Reference Range Interpretation Comments Urine Leukocyte Esterase (test code = 5799-2) NEGATIVE NEGATIVE [facility] CenterU[facility] Zkdbcql5604-82-34 13:12:00* Test Item Value Reference Range Interpretation Comments Urine Nitrite (test code = 05003-6) POSITIVE NEGATIVE [facility] CenterU[facility] Hlsfqys1923-98-23 13:12:00* Test Item Value Reference Range Interpretation Comments Urine Protein (test code = 5804-0) NEGATIVE NEGATIVE [facility] CenterUrine Glucose (UA)2019-06-24 13:12:00* Test Item Value Reference Range Interpretation Comments Urine Glucose (UA) (test code = 2349-9) NEGATIVE NEGATIVE [facility] CenterU[facility] Bynzblr0103-61-52 13:12:00* Test Item Value Reference Range Interpretation Comments Urine Ketones (test code = 39609-2) NEGATIVE NEGATIVE [facility] Lytctsczyifw2546-60-32 13:12:00* Test Item Value Reference Range Interpretation Comments Urine Urobilinogen (test code = 96276-9) 0.2 0.2-1 [facility] Goxjjqoyc4207-16-68 13:12:00* Test Item Value Reference Range Interpretation Comments Urine Bilirubin (test code = 1978-6) NEGATIVE NEGATIVE [facility] CenterU[facility] Hzhoj1576-49-29 13:12:00* Test Item Value Reference Range Interpretation Comments Urine Blood (test code = 53433-9) NEGATIVE NEGATIVE [facility] CenterU[facility] PDN1995-39-83 13:12:00* Test Item Value Reference Range Interpretation Comments Urine WBC (test code = 5821-4) 0-5 0-5 [facility] CenterU[facility] JQT9955-67-37 13:12:00* Test Item Value Reference Range Interpretation Comments Urine RBC (test code = 92405-4) 0-5 0-5 [facility] CenterU[facility] Tclictzn5139-48-40 13:12:00* Test Item Value Reference Range Interpretation Comments Urine Bacteria (test code = 84956-8) MODERATE NONE [facility] CenterU[facility] Epithelial Vvids8732-95-25 13:12:00 * Test Item Value Reference Range Interpretation Comments Urine Epithelial Cells (test code = 74206-0) RARE NONE [facility] CenterLactic Acid Agpsy6858-69-22 12:57:00* Test Item Value Reference Range Interpretation Comments Lactic Acid Level (test code = Lactic Acid Level) 1.3 0.5- 2.0 [facility] CenterProthrombin Fqnz7753-31-73 12:55:00* Test Item Value Reference Range Interpretation Comments Prothrombin Time (test code = 5902-2) 13.1 11.9-14.5 [facility] CenterProthromb Time International Ratio 2019-06-24 12:55:00* Test Item Value Reference Range Interpretation Comments Prothromb Time International Ratio (test code = 6301-6) 0.94 Oral Anticoagulant Therapy INR Values:1. Low Intensity Therapy 1.5 - 2.02 . Moderate Intensity Therapy 2.0 - 3.03. High Intensity Therapy(1) 2.5 - 3. 54. High Intensity Therapy(2) 3.0 - 4.05. Panic Value INR > 5.0 [facility] CenterActivated Partial Thromboplast Time 2019-06-24 12:55:00* Test Item Value Reference Range Interpretation Comments Activated Partial Thromboplast Time (test code = 46469-4) 30.9 23.8-35.5 [facility] CenterUS RENAL RETROPERITONEAL [id number] 11:03:00 [facility] [address] [address] Patient Name: TRAN GUAN MR #: [id number] : 1950 Age/Sex: 68/F Req #: [id number] Adm Physician: Ordered by: GRETA COLES MD Report #: [id number] Location: US Room/Bed: Procedure: [id number] US/US TATYANA AL RETROPERITONEAL COMP Exam Date: 06/01/19 Exam Ham e: 1015 REPORT STATUS: Signed EX AM: US RENAL RETROPERITONEAL COMP DATE: 06/01/2019 9:33 AM INDICATIO N: Urinary tract infection COMPARISON: None FINDINGS: The right ki dney is normal in size measuring 10.0 x 4.6 x 3.7 cm with cortical thickness o f 2.2 cm. Cortical echogenicity is within normal limits. There is no evidence for solid renal mass, hydronephrosis, or shadowing calculi. The left kidney is normal in size measuring 10.3 x 4.9 x 4.5 cm with cortical thickness of 1.7 cm. Cortical echogenicity is within normal limits. There is no evidence for solid renal mass, hydronephrosis, or shadowing calculi. The partially diste nded urinary bladder demonstrates no significant abnormalities. Bilateral uret eral jets are noted. Prevoid volume is 67 cc. IMPRESSION: Unremarka ble renal ultrasound examination. Signed by: Dr. Arpan Mattson MD on 020 11:04 AM Dictated By: ARPAN MATTSON MD 03 Transcribed By: KOREY on 06/01/191103 COPY TO: GRETA COLES MD ABDOMEN-1VIEW (KUB)2019-06-01 10:16:00 [address] [address] Patient Name: TRAN GUAN MR #: [id number] : 1950 Age/Sex: 68/F Req #: [id number] Adm Physician: Ordered by: GRETA COLES MD Report #: [id number] Location: US Room/Bed: Procedure: [id number] DX/ABDOME N-1VIEW (KUB) Exam Date: 06/01/19 Exam Time: 0950 REPORT STATUS: Signed EXAM: ABDOM EN-1VIEW (KUB) DATE: 06/01/2019 9:33 AM INDICATION: Urinary tract inf ection COMPARISON: None FINDINGS/IMPRESSION: Bowel gas pattern is nonobstructed. No intraperitoneal free air is appreciated. Please note ariella l gas overlies the renal shadows limiting evaluation. Several punctate calcifi cations are overlying the expected location of the right renal shadow which ma y represent small nephroliths. A single punctate calcification is noted overly ing the left renal shadow. Cholecystectomy clips noted within the right up per quadrant. There are degenerative changes of the lumbosacral spine. No acut e osseous abnormality is identified. Signed by: Dr. Arpan Mattson MD on 10:21 AM Dictated By: ARPAN MATTSON MD 1021 Transcribed By: KOREY on 06/01/19 1021 COPY TO: GRETA COLES MD Urine Lwpejdt1534-01-07 10:53:00* Test Item Value Reference Range Interpretation Comments Urine Calcium (test code = Urine Calcium) 2.1 Reference Range: NOT ESTAB.Testing performed by:[employer] [address] [place], [place] [id number]: Juanito Veliz [facility]ptownParathyroid Ivmvarx0483-03-75 10:27:00* Test Item Value Reference Range Interpretation Comments Parathyroid Hormone (test code = 2731-8) 303 Reference Range: 15 - 65 pg/mL Intact PTH Interpretation Intact PTH Calcium (pg /mL) (mg/dL) Normal 15 - 65 8.6 - 10.2 Primary Hyperparathyroidism >65 >10.2 Secondary Hyperparathyroidism >65 <10.2 Non-Parathyroid Hypercalcemia <65 >10.2 Hypoparathyroidism <15 < 8.6 Non-Parathyroid Hypocalcemia 15 - 65 < 8.6Testing performed by:[employer] [address] [phone]. Juan C Lackey Red [facility] Calcium (Send out)2019-03-09 10:27:00* Test Item Value Reference Range Interpretation Comments Calcium (Send out) (test code = 03571-5) 6.9 [facility] CenterParathyroid Hormone Interpretation 2019-03-09 10:27:00* Test Item Value Reference Range Interpretation Comments Parathyroid Hormone Interpretation (test code = Parathyroid Hormone Interpretation) Verified by repeat analysis Referen ce Range:8.7 - 10.3 mg/dL [facility] CenterRenin2019-12-10 22:05:00* Test Item Value Reference Range Interpretation Comments Renin (test code = 2915-7) 0.476 0.167-5.380 This test was developed and its performance characteristicsdetermined by [facility] . It has not been cleared orapproved by the Food and Drug Administration.Perform ed at: [address] [id number] Dir jennifer: Giselle Warren MD, Phone: [phone] [facility]illus Medical CenterMethylmalonic Xxkw8997-76-61 10:40:00* Test Item Value Reference Range Interpretation Comments Methylmalonic Acid (test code = 80473-4) 301 Reference Range:0 - 378 nmol/LThis test was developed and its performance charac teristicsdetermined by [facility]. It has not been cleared or approvedby the Food a nd Drug Administration.Test performed at [address] [place] [address] [facility] CenterAldosterone2019-12-09 09:59:00* Test Item Value Reference Range Interpretation Comments Aldosterone (test code = 1763-2) <1.0 0.0-30.0 This test was developed and its performance characteristicsdetermined by [facility] . It has not been cleared orapproved by the Food and Drug Administration.Perform ed at: [address] [id number] Dir jennifer: Giselle Warren MD, Phone: [phone] Camillus Medical CenterMagnesium Hekgj6737-39-57 05:32:00* Test Item Value Reference Range Interpretation Comments Magnesium Level (test code = 61922-1) 1.8 1.3-2.1 [facility] CenterCTA CORONARY W or WO VPJCYFF1145-11-99 13:09:00 [facility] [address] [address] Patient Name: TRAN GUAN MR #: [id number] : 1950 Age/Sex: 68/F Req #: [id number] Adm Physician: PATRICK VAIL MD Ordered by: KAN BERNAL DO Report #: [id number] Location: [facility] Room/Bed: [address] [address] Procedure: [id number] CT/ CTA CORONARY W or WO CALCIUM Exam Date: 02/24/19 Escobarjoanna chris Time: 1044 REPORT STATUS: Signed EXAM: CALCIUM SCORE AND CORONARY CTA INDICATION: abnormal stress test [id number] 1044 COMPARISON: Lexiscan stress test 02/22/2019, chest radiograph 02/17/2019 TECHNIQUE: Multi-detector CT technology was employed (64 MDCT [employer]). Minimal slice thickness with retrospective gating was performed following the intravenous administration of contrast material. The patient was premedicated with 0.4 mg sublingual nitroglycerin for coronary artery dil ation. IV CONTRAST: 100 mL of Isovue-370 ORAL CONTRAST: None COMPLICATIONS: None RADIATION DOS E: Total DLP: 1807 mGy*cm Estimated effective dose: (DLP x 0.015 x size factor) mSv CTDIvol has been reviewed. It is below the limits set by the Radiation Protocol Committee (RPC). For optimization of anatomic evaluation, multiplanar reconstruction, maximum intensity projections, and ad vanced 3-D off-line postprocessing were performed on a dedicated stand-alone w orkstation under the direct supervision of the interpreting physician. QU ALITY: Good FINDINGS: CALCIUM SCORE: The observed Agatston Calcium Score of 0 is at percentile 0% for subjects of the same age and gender who are free of clinical cardiovascular disease and treated diabetes. The Agatston s core for each vessel is as follows: LM: 0 LAD: 0 LCx: 0 RCA: 0 DI STRIBUTION OF THE CALCIFIED PLAQUES: No identifiable calcified plaques in the coronary arteries. CORONARY ANATOMY: There is normal origin of the coronary arteries. Left Main Coronary Artery: The left main is normal sized vessel that bifurcates into the LAD and circumflex. There is no evidence of atherosclerotic changes or stenotic disease. Left Anterior Descending Co ronary Artery: The LAD is a normal size vessel that wraps around the apex. It gives rise to 2 acute diagonal branches. There is no evidence of atherosclero tic changes or stenotic disease. Left Circumflex Coronary Artery: The LCX i s a normal size vessel, which is non-dominant. It gives rise to 2 obtuse henri inal branches. There is no evidence of atherosclerotic changes or stenotic di sease. Right Coronary Artery: The RCA is a normal size vessel, which is dom inant. It gives rise to a conus branch, AV pascual branch, and 2 acute marginal branches. In its distal segment it bifurcates into the PDA and PV branch. T here is no evidence of atherosclerotic changes or stenotic disease. CARDI AC MORPHOLOGY AND FUNCTION: The right and left atria and ventricles are morp hologically normal. There is normal resting global left ventricular systolic function. LVEF: 78.5%, likely overestimated LV end diastolic volume: 111.6 cc LV end systolic volume: 24 cc LV stroke volume: 87.7 cc L IMITED CHEST: Limited views of the visualized chest show no abnormality within chest wall and mediastinum. No mediastinal lymphadenopathy. The main pulmo nary arteries normal in size, measuring 2.2 cm in diameter. Partially vis ualized small bilateral pleural effusions with adjacent consolidations due to atelectasis, cannot exclude superimposed pneumonia. Mild bilateral pulmonary e carlos. Left upper lobe calcified granuloma. The visualized portions of the a scending and descending thoracic aorta are of normal size. Small perica rdial effusion adjacent to the right ventricle, measuring 0.8 cm in thickness. LIMITED ABDOMEN: Cholecystectomy. BONES: No acute osseous abnorma lities. IMPRESSION: 1. Total Agatston Calcium Score: 0 that corres ponds to percentile 0%, representing no identifiable calcified plaques in the coronary arteries. 2. Normal coronary anatomy without evidence of ather osclerotic changes or stenotic disease. CAD-REGINA: 0 Reference: http ://c.[email or web address]/sites/[email or web address]-[email or web address]/resmgr/[email or web address]_Guidelines_ AD _RADS.pdf 3. Mild bilateral pulmonary edema with associated small pleural e ffusions. 4. Bibasilar consolidations may reflect atelectasis and/or superi mposed pneumonia. Signed by: Dr. Andreina Archuleta M.D. on 02/24 1:44 PM Dictated By: ANDREINA ARCHULETA MD Electronically Sig john By: ANDREINA ARCHULETA MD on 02/24/19 1344 Transcribed By: KOREY on 02/24/19 1344 COPY TO: KAN BERNAL DO Vitamin B6 Level 2019-02-24 07:27:00* Test Item Value Reference Range Interpretation Comments Vitamin B6 Level (test code = 2900-9) <1.0 2.0-32.8 Performed at: - [facility] [id number] [employer] Operator: Giselle Warren MD, Phone: [phone] Medical Center2019-12-04 05:19:00* Test Item Value Reference Range Interpretation Comments Folate (test code = 2284-8) 8.5 >3.0 A serum folate concentration of less than 3.1 ng/mL isconsidered to represent cl inical deficiency.Performed at: - [facility] [address] [id number] Director: Juanito Veliz MD, Phone: [phone] Camillus Medical CenterMODIFIED BA. DLKWERF7356-69-73 12:45:00 [address] [address] Patient Name: TRAN GUAN MR #: [id number] : 1950 Age/Sex: 68/F Req #: [id number] Adm Physician: PATRICK VAIL MD Ordered by: ANDRES RUIZ MD Report #: [id number] Location: [facility] Room/Bed: [address] [address] Procedure: [id number] DX/ MODIFIED BA. SWALLOW Exam Date: 02/23/19 Exam Time: 1130 REPORT STATUS: Signed Modif ied Barium Swallow History: Dysphagia Fluoroscopic time: 1.45 minutes Dose(EZEQUIEL): 1.3 mGy Technique: Modified barium swallow was performed in conjunction with speech pathology. Please see separate report for further details. The patient was fed various consistencies of barium under real time fluoroscopic observation. Provided images demonstrate laryngeal penetration. P lease refer to speech pathology report for further details. Impression: Modified barium swallow as described above. Signed by: Dr. Arpan Alvares i, MD on 02/23/2019 12:50 PM Dictated By: ARPAN MATTSON MD 1250 Transcribed By: KOREY on 02/23/19 1250 COPY TO: ANDRES RUIZ MD Stress Test - Treadmill ONLY 2019-02-23 11:10:00 [address] [place] [address] Patient Name : TRAN GUAN MR #: [id number] : 1950 Age/Sex: 68/F Adm Physician : PATRICK VAIL MD Admit Date : 02/16/19 Location : [facility] Room/Bed : [address] [address] REPORT: Myoview Stress Test DATE OF STUDY: 02/22/2019 12:05:00 Stress Test - Treadmill ONLY STRESS SUMMARY: The patient underwent pharmacologic stress with Shayne iscan under the usual protocol. Baseline blood pressure 162/58 and dropped to 159/58 with peak stress. This is normal response for Lexiscan. Heart rate in creased from 79 to 84 beats per minute. The patient elicited no cardiac sympt oms throughout the stress protocol. ELECTROCARDIOGRAPHIC STRESS SUMMARY: Baseline 12-lead electrocardiogram showed normal sinus rhythm with nonspecific ST-T wave abnormalities. There were no significant ST deviations or arrhyth mias noted throughout the stress protocol. The patient received technetiu m-99m tetrofosmin at both rest and stress. Myocardial perfusion images show a small mild anterior perfusion defect. Gated images revealed left ventric ular ejection fraction greater than 70%. CONCLUSIONS: 1. Normal hemody namic, electrocardiographic, and clinical Lexiscan stress test. 2. Abnormal my ocardial perfusion imaging. 3. showing a small mild anterior nontransmural sc ar with mild ischemia. 4. Gated images revealed a left ventricular ejection fr action greater than 70%. DO SAMEERA Goodrich/DEEDEE /[id number] Signature Date Dictated By: ROSARIO BERNAL DO Transcribed By: DEEDEE on 02/23/19 <Electronically signed by KAN BERNAL DO><<Signature on File>>03/11/19 1033 COPY TO: Vitamin B1 Rdcxo3296-17-44 06:28:00* Test Item Value Reference Range Interpretation Comments Vitamin B1 Level (test code = 78959-2) 162.5 66.5-200.0 Performed at: [address] [id number] [employer] Operator: Giselle Warren MD, Phone: [phone] Camillus Medical CenterIonized Shcgsfr1702-70-42 05:54:00* Test Item Value Reference Range Interpretation Comments Ionized Calcium (test code = 69676-5) 1.0 1.09-1.30 [facility] CenterArterial Blood nY5091-12-92 17:14:00* Test Item Value Reference Range Interpretation Comments Arterial Blood pH (test code = 2744-1) 7.44 7.31-7.41 [facility] CenterArterial Blood Partial Pressure CO2 2019-02-22 17:14:00* Test Item Value Reference Range Interpretation Comments Arterial Blood Partial Pressure CO2 (test code = 2018-) 30 41-51 [facility] CenterArterial Blood Partial Pressure O2 2019-02-22 17:14:00* Test Item Value Reference Range Interpretation Comments Arterial Blood Partial Pressure O2 (test code = 2018-10) 72 80-105 [facility] CenterArterial Blood XQG05403-18-24 17:14:00* Test Item Value Reference Range Interpretation Comments Arterial Blood HCO3 (test code = 1960-4) 20 23-28 [facility] CenterArterial Blood Base Sjlirs3070-32-06 17:14:00* Test Item Value Reference Range Interpretation Comments Arterial Blood Base Excess (test code = 1925-7) -4.0 -2-3 [facility] CenterArterial Blood Oxygen Saturation 2019-02-22 17:14:00* Test Item Value Reference Range Interpretation Comments Arterial Blood Oxygen Saturation (test code = 2708-6) 95.0 95-98 [facility] CenterFiO22019-12-02 17:14:00* Test Item Value Reference Range Interpretation Comments FiO2 (test code = FiO2) 21 ROOM AIR JACKIE FROM LEFT RADIALSaint Camillus Medical CenterUrine Random Dayevyudi4896-17-39 16:44:00* Test Item Value Reference Range Interpretation Comments Urine Random Potassium (test code = 2828-2) 71.9 [facility] CenterAmylase Mbaxs3403-80-89 05:12:00* Test Item Value Reference Range Interpretation Comments Amylase Level (test code = 1798-8) 25 25-125 [facility] CenterLipase2019-12-01 05:12:00* Test Item Value Reference Range Interpretation Comments Lipase (test code = 3040-3) 24 8-78 [facility] CenterHepatitis C RNA Qualitative (PCR) 2019-02-20 03:42:00* Test Item Value Reference Range Interpretation Comments Hepatitis C RNA Qualitative (PCR) (test code = 75847-8) Negative Negative Negative: HCV RNA Not DetectedPerformed at: [facility] [employer] Garcia StreettK[place], [place] [id number] Director: Giselle Warren MD, Phone: [phone] Medical CenterRapid Plasma Npjimj3393-45-96 03:42:00 * Test Item Value Reference Range Interpretation Comments Rapid Plasma Reagin (test code = 74387-6) Non Reactive Non Reactive Performed at: [facility] [employer] [id number] Director: Juanito Veliz MD, Phone: [phone] Camillus Medical CenterHerpes Simplex Virus I DNA (PCR)2019-02-19 21:07:00* Test Item Value Reference Range Interpretation Comments Herpes Simplex Virus I DNA (PCR) (test code = 05768-3) Negative Negative [facility] CenterHerpes Simplex Virus II DNA (PCR) 2019-02-19 21:07:00* Test Item Value Reference Range Interpretation Comments Herpes Simplex Virus II DNA (PCR) (test code = 37493-9) Negative Negative This test was developed and its performance characteristicsdetermined by [employer]. It has not been clearedor approved by the U.S. Food and Drug Admi nistration. TheFDA has determined that such clearance or approval is notnecessar y. This test is used for clinical purposes. Itshould not be regarded as investig ational or research.Performed at: [facility] [employer] [id number] Director: Giselle Warren MD, Phone: [phone] Camillus Medical CenterMODIFIED BA. VVJEEJM1062-33-33 16:30:00 [facility] [address] [address] Patient Name: TRAN GUAN MR #: [id number] : 1950 Age/Sex: 68/F Req #: [id number] Adm Physician: PATRICK VAIL MD Ordered by: PATRICK VAIL MD Report #: [id number] Location: ICU Room/Bed: ICU [facility] Procedure: [id number] DX/MYNOR CLARK BA. SWALLOW Exam Date: 02/19/19 Exam Time: 05 REPORT STATUS: Signed PROCEDU RE: X-RAY MODIFIED BARIUM SWALLOW COMPARISON: None. INDICATION: Aspir ation Radiation Details: Fluoroscopy time: 1.9 minutes Cumulative dose: 7.4 mGy DISCUSSION: Fluoroscopic examination was performed in conjunction with speech pathology during swallowing a variety of thin and thick liquid con sistencies. Provided images demonstrate both laryngeal penetration and aspirat ion. CONCLUSION: Modified barium swallow demonstrating both laryngeal p enetration and aspiration. Please refer to the speech pathology report for fur ther details. Signed by: Brent Merritt MD on 02/19/2019 4:30 PM Dictat ed By: BRENT MERRITT MD 1630 Transcribed By: KOREY on 02/19/19 1630 COPY TO: PATRICK VAIL MD Clostridium Difficile Toxin A & V4686-61-37 10:41:00* Test Item Value Reference Range Interpretation Comments Clostridium Difficile Toxin A & B (test code = 648588987) NEGATIVE NEGATIVE Testing on stool aspirate specimens is outside tire layer claims since specime n type not validated on this assay.[facility] Centertool Lactoferrin (LAB)2019-02-18 08:43:00* Test Item Value Reference Range Interpretation Comments Stool Lactoferrin (LAB) (test code = 12598-9) POSITIVE NEGATIVE Testing on stool aspirate specimens is outside tire layer claims since specime n type not validated on this assay.[facility] Vitamin B12 Srbgc3421-54-06 20:24:00* Test Item Value Reference Range Interpretation Comments Vitamin B12 Level (test code = 04869-6) 480 213-816 [facility] CenterCSF Llrtqyo0147-82-76 14:57:00* Test Item Value Reference Range Interpretation Comments CSF Glucose (test code = 2342-4) 240 40-70 [facility] CenterCSF Total Fircjft8902-36-02 14:57:00* Test Item Value Reference Range Interpretation Comments CSF Total Protein (test code = 2880-3) 357.9 15-40 [facility] CenterIR EWIDIPV1147-16-83 13:55:00 [facility] [address] [address] Patient Name: TRAN GUAN MR #: [id number] : 1950 Age/Sex: 68/F Req #: [id number] Adm Physician: PATRICK VAIL MD Ordered by: ELAINE HOLLIS MD Report #: [id number] Location: ICU Room/Bed: [address] [address] Procedure: [id number] DX/IR CONSULT Exam Date: Exam Time: REPORT STATUS: Signed Fluoroscopic-guided lumbar puncture. History: Altered mental statu s. Hold Worker: Dr. Antony. Medication: None. Anesthesia: 5 cc of 1% lidocaine without epinephrine. Contrast: None. Fluoro time: 0.25 min. Dose: 54.4 mGy (EZEQUIEL) Specimen: 3.5 cc of bloody CSF. Discussion: Procedure was limited due to patient inability to remain immobile. After informed consent was obtained, the patient's back was prepped and draped in a sterile fashion. The skin was anesthetized with 1% lidocaine without epineph rine. Using fluoroscopic guidance, a 22 gauge 3.5 inch long spinal needle was advanced into the spinal canal at the level of L5-S1. Bloody slightly clearing CSF was visualized and obtained and sent to the laboratory for studies. Only a small amount of fluid could be obtained before the patient dislodged the nee dle with constant motion. Repeat entry into the thecal sac could not be obtain ed. IMPRESSION: Limited fluoroscopic guided LP. Signed by: Joe Antony on 02/17/2019 2:06 PM Dictated By: JOE ANTONY MD 05 Transcribed By: KOREY on 02/17/191405 COPY TO: ELAINE HOLLIS MD FLURO GUIDE NEEDLE PLCMNT/GAX1198-98-03 13:55:00 [place] [address] Patient Name: TRAN GUAN MR #: [id number] : 1950 Age/Sex: 68/F Req #: [id number] Adm Physician: PATRICK VAIL MD Ordered by: ELAINE HOLLIS MD Report #: [id number] Location: ICU Room/Bed: ICU [facility] Procedure: [id number] IR/FLU RO GUIDE NEEDLE PLCMNT/INJ Exam Date: 02/17/19 Exam Time: 1245 REPORT STATUS: Signed Fluoroscopic-guided lumbar puncture. History: Altered mental status. Hold Worker: Dr. Antony. Medication: None. Anesthesia: 5 cc of 1% lidocaine without epinephrine. Contrast: None. Fluoro time: 0.25 min. Dose: 54.4 mGy (EZEQUIEL) Specimen: 3.5 cc of bloody CSF. Discussion: Procedure was limited due to patient inability to remain immobile. After informed consent was obtained, the patient's back was prepped and draped in a sterile fashion. The skin was anesthetized with 1% lidocaine without epinephrine. Using fluoroscopic guidance, a 22 gauge 3.5 inch long spinal needle was advanced into the spinal canal at the level of L5- S1. Bloody slightly clearing CSF was visualized and obtained and sent to the laboratory for studies. Only a small amount of fluid could be obtained before the patient dislodged the needle with constant motion. Repeat entry into the t hecal sac could not be obtained. IMPRESSION: Limited fluoroscopic guided LP. Signed by: Joe Antony on 02/17/2019 2:06 PM Dictated By: JOE LAYNE MD 1406 Transcribe d By: KOREY on 02/17/191405 COPY TO: ELAINE HOLLIS MD LUMBAR SPINE WERIPFZR7395-31-65 13:55:00 [place] [address] Patient Name: TRAN GUAN MR #: [id number] : 1950 Age/Sex: 68/F Req #: [id number] Adm Physician: PATRICK VAIL MD Ordered by: ELAINE HOLLIS MD Report #: [id number] Location: ICU Room/Bed: ICU [facility] Procedure: [id number] IR/LUM BAR SPINE PUNCTURE Exam Date: 02/17/19 Exam Time: 12 45 REPORT STATUS: Signed Fluo roscopic-guided lumbar puncture. Histor y: Altered mental status. Hold Worker: Dr. Antony. Medication: None. Anesthesia: 5 cc of 1% lidocaine without epinephrine. Contrast: None. Fluoro time: 0.25 min. Dose: 54.4 mGy (EZEQUIEL) Specimen: 3.5 cc of bloody CSF. Discussion: Procedure was limited due to patient in ability to remain immobile. After informed consent was obtained, the patient's back was p repped and draped in a sterile fashion. The skin was anesthetized with 1% lido caterina without epinephrine. Using fluoroscopic guidance, a 22 gauge 3.5 inch lo ng spinal needle was advanced into the spinal canal at the level of L5-S1. Blo lynda slightly clearing CSF was visualized and obtained and sent to the laborato for studies. Only a small amount of fluid could be obtained before the israel ent dislodged the needle with constant motion. Repeat entry into the thecal sa c could not be obtained. IMPRESSION: Limited fluoroscopic guided LP. Signed by: Joe Antony on 02/17/2019 2:06 PM Dictated By: JOE ANTONY MD 05 Transcribed By: DIMITRI STOLL on 02/17/191405 COPY TO: ELAINE HOLLIS MD CHEST XRAY LINE [id number] 11:13:00 [place] [address] Patient Name: TRAN GUAN MR #: [id number] : 1950 Age/Sex: 68/F Req #: [id number] Adm Physician: PATRICK VAIL MD Ordered by: MADISYN AVILA MD Report #: [id number] Location: ICU Room/Bed: ICU [facility] Procedure: [id number] DX/CHEDesiree T XRAY LINE PLACEMENT Exam Date: 02/17/19 Exam Time: 1050 REPORT STATUS: Signed Ches t, 1 view, 02/17/2019. History: PICC placement. Comparison: . Findings: The cardiomediastinal silhouette and pulmonary vasculat ure are within normal limits for a portable exam. There is no focal consolidat ion or pleural effusion. A new right upper extremity PICC terminates near the cavoatrial junction. Cervical fusion hardware is again noted. There are no acu te osseous or soft tissue abnormalities. Impression: No acute cardiop ulmonary abnormality. Right upper extremity PICC in adequate position. Si gned by: Joe Antony on 02/17/2019 11:14 AM Dictated By: JOE ANTONY MD 1114 Transcribed By: KOREY on 02/17/19 1114 COPY TO: MADISYN AVILA MD Venous Blood pH 2019-02-17 10:24:00* Test Item Value Reference Range Interpretation Comments Venous Blood pH (test code = Venous Blood pH) 7.345 7.35-7.3 8 [facility] Partial Pressure CO2 2019-02-17 10:24:00* Test Item Value Reference Range Interpretation Comments Venous Blood Partial Pressure CO2 (test code = Venous Blood Partial Pressure CO2) 37 44-48 [facility] Partial Pressure O2 2019-02-17 10:24:00* Test Item Value Reference Range Interpretation Comments Venous Blood Partial Pressure O2 (test code = Venous B lood Partial Pressure O2) 20 40-41 [facility] Blood [id number] 10:24:00* Test Item Value Reference Range Interpretation Comments Venous Blood HCO3 (test code = Venous Blood HCO3) 20 21-[address] [facility] Blood Total Carbon Dioxide 2019-02-17 10:24:00* Test Item Value Reference Range Interpretation Comments Venous Blood Total Carbon Dioxide (test code = Venous Blood Total Carbon Dioxide) 21 [facility] Base Ojzqcl9382-52-07 10:24:00* Test Item Value Reference Range Interpretation Comments Venous Blood Base Excess (test code = Venous Blood Base Excess) -6 [facility] Oxygen Cleajcrcxu7302-06-68 10:24:00* Test Item Value Reference Range Interpretation Comments Venous Blood Oxygen Saturation (test code = Venous Blood Oxy gen Saturation) 30 [facility]Influ[facility] Virus Types A,B Antigen 2019-02-17 10:18:00* Test Item Value Reference Range Interpretation Comments Influenza Virus Types A,B Antigen (test code = 38167-4) NEGATIVE NEGATIVE [facility]iglycerides Kkezz4754-53-60 05:41:00* Test Item Value Reference Range Interpretation Comments Triglycerides Level (test code = 2571-8) 207 0-149 [facility] Vijag1475-19-20 05:41:00* Test Item Value Reference Range Interpretation Comments Cholesterol Level (test code = 2093-3) 169 0-199 Less than 200 mg/dL Low Jnaq911 - 239 mg/dL Borderline Cgql393 m g/dl and greater High Risk [facility] CenterLDL Itlfwxytnhv2444-21-00 05:41:00* Test Item Value Reference Range Interpretation Comments LDL Cholesterol (test code = 2089-1) 99 60-130 [facility]HDL Zuarzrxizdy6535-37-09 05:41:00* Test Item Value Reference Range Interpretation Comments HDL Cholesterol (test code = 2085-9) 29 40-60 [facility]/HDL Izfkh2019-01-26 05:41:00 * Test Item Value Reference Range Interpretation Comments Cholesterol/HDL Ratio (test code = 9830-1) 5.8 3.0-3.6 [facility] CenterCT ABDOMEN/PELVIS [id number] 17:16:00 [place] [address] Patient Name: TRAN GUAN MR #: [id number] : 1950 Age/Sex: 68/F Req #: [id number] Adm Physician: PATRICK VAIL MD Ordered by: TOMAS STALLINGS MD Report #: [id number] Location: [facility] Room/Bed: [place] [address] Procedure: [id number] CT/CT ABDOMEN/PELVIS W Exam Date: 02/16/19 Exam Time: 1700 REPORT STATUS: Signed EXAM: CT Abdomen and Pelvis WITH intravenous contrast INDICATION: Altered mental status, urinary tract infection, leukocytosis COMPARISON: None. TECHNI QUE: Abdomen and pelvis were scanned utilizing a multidetector helical scanner from the lung base to the pubic symphysis after administration of IV contrast. Coronal and sagittal reformations were obtained. Routine protocol was perfor med. Scan was performed during portal venous phase. IV CONTRAST: 100mL of Isovue 370 ORAL CONTRAST: Water RADIATION DOSE: Total DLP: 840.7 m Gy*cm Dose modulation, iterative reconstruction, and/or weight based adjust ment of the mA/kV was utilized to reduce the radiation dose to as low as reaso nably achievable. FINDINGS: LOWER THORAX: Normal. HEPATOBILIARY: No focal hepatic lesions. No biliary ductal dilatation status post cholecyste ctomy. SPLEEN: No splenomegaly. PANCREAS: Diffuse peripancreatic fat s tranding most notably at the pancreatic head and uncinate process. No hypoenha ncement of pancreatic parenchyma. No focal mass or ductal dilation. No focal f luid collection. ADRENALS: No adrenal nodules. KIDNEYS/URETERS: No hydron ephrosis, stones, or solid mass lesions. PELVIC ORGANS/BLADDER: Murillo catheter in the decompressed bladder. PERITONEUM / RETROPERITONEUM: No free air or fluid. LYMPH NODES: No lymphadenopathy. VESSELS: Scattered atherosclerotic c alcifications of the nonaneurysmal abdominal aorta and major branches. GI TRACT: Diffuse wall thickening of the cecum and ascending colon with mild adj acent inflammatory changes. No bowel obstruction. BONES AND SOFT TISSUES: N o acute osseous injury. No suspicious lytic or blastic lesions. Moderate degen erative changes of the visualized spine. IMPRESSION: Acute pancreatitis with no evidence of parenchymal necrosis or associated fluid collection. Diffuse wall thickening of the ascending colon and cecum compatible with colit is. Signed by: Brent Merritt MD on 02/16/2019 5:32 PM Dictated By: MATT MERRITT MD 31 Transcribe d By: KOREY on 02/16/191731 COPY TO: TOMAS STALLINGS MD Ammonia 2019-02-16 17:11:00* Test Item Value Reference Range Interpretation Comments Ammonia (test code = 66166-0) 48 31-439 [facility] SINGLE (PORTABLE)2019-02-16 15:18:00 [place] [address] Patient Name: TRAN GUAN MR #: [id number] : 1950 Age/Sex: 68/F Req #: [id number] Adm Physician: Ordered by: TOMAS STALLINGS MD Report #: [id number] Location: ER Room/Bed: Procedure: [id number] DX/MI ST SINGLE (PORTABLE) Exam Date: 02/16/19 Exam Time: 1350 REPORT STATUS: Signed EXAMI NATION: CHEST SINGLE (PORTABLE) INDICATION: Altered mental status COMPARISON: None FINDINGS: LINES/TUBES:EKG leads overlie the mi st. LUNGS:The lungs are moderately inflated. No focal consolidation or pulm onary edema. PLEURA:No pleural effusion or pneumothorax. MEDIASTINUM :The cardiomediastinal silhouette appears normal in size and shape. There is c alcification of the coronary arteries, consistent with atherosclerotic disease . Chest BONES/SOFT TISSUES:No acute osseous injury. ABDOMEN:No free ai r under the diaphragm. IMPRESSION: No focal pneumonia or pulmonary ed noah. Signed by: Brent Merritt MD on 02/16/2019 3:19 PM Dictated By: ISADORA MERRITT MD 18 Transcrib ed By: KOREY on 02/16/191518 COPY TO: TOMAS STALLINGS MD CT BRAIN [id number] 15:16:00 [place] [address] Patient Name: TRAN GUAN MR #: [id number] : 1950 Age/Sex: 68/F Req #: [id number] Adm Physician: Ordered by: TOMAS STALLINGS MD Report #: [id number] Location: ER Room/Bed: Procedure: [id number] CT/CT BRAIN WO Exam Date: 02/16/19 Exam Time: 1350 REPORT STATUS: Signed CT BRAIN WO HISTORY: Altered mental status COMPARISON: None. TECHNIQUE: Noncon trast axial scans were obtained from skull base to the vertex. Coronal and sa gittal reconstructions obtained from the axial data. One or more of the follo wing dose reduction techniques were used: Automated exposure control, adjustme nt of the mA and/or kV according to patient size, and/or utilization of iterat clarence reconstruction technique. Beam hardening and motion artifacts obscure some details. DISCUSSION: Scalp/Skull: Unremarkable. Brain sulci: Approp riate for patient's age. Ventricles: Mild to moderate supratentorial ventricul omegaly is slightly out of proportion to sulcal prominence. The fourth ventric le is normal in size and configuration. Extra-axial spaces: No masses or flu id collections. Carotid siphon calcifications are present. Parenchyma: No abnormal densities. No mass, hemorrhage, or large vascular territory acute infarct. Dural sinuses: No abnormal densities. Sellar/Suprasellar cherise on: Intact. Skull base: Intact. Incidental findings: None. IMPRESSION: 1. Mild to moderate supratentorial ventriculomegaly is slightly out of prop ortion to sulcal prominence. Correlate for communicating hydrocephalus. 2. Ot herwise, no acute intracranial abnormalities. Signed by: Dr. Jas nelson M.D. on 02/16/2019 3:19 PM Dictated By: JAS HERNANDES MD Elec tronically Signed By: JAS HERNANDES MD on 02/16/191518 Transcribed By: RAFFI RAN on 02/16/191518 COPY TO: TOMAS STALLINGS MD B-Type Natriuretic Xaqiohj0705-22-43 14:51:00* Test Item Value Reference Range Interpretation Comments B-Type Natriuretic Peptide (test code = 29303-7) 37.5 0-100 [facility] CenterAcetaminophen Tkjwz4739-81-73 14:47:00* Test Item Value Reference Range Interpretation Comments Acetaminophen Level (test code = 18127-2) < 3 10-30 [facility] CenterEthyl Alcohol Skpbh8111-73-97 14:47:00* Test Item Value Reference Range Interpretation Comments Ethyl Alcohol Level (test code = 5643-2) < 10.0 0.0-10.0 [facility] Ntnmn4072-45-66 14:47:00* Test Item Value Reference Range Interpretation Comments Salicylates Level (test code = 4024-6) < 5.0 0-30 [facility] CenterUrine Amorphous Tpfxaqes8983-97-69 14:31:00* Test Item Value Reference Range Interpretation Comments Urine Amorphous Sediment (test code = 8246-1) MODERATE FEW [facility] Hyaline Biqpf9387-93-60 14:31:00* Test Item Value Reference Range Interpretation Comments Urine Hyaline Casts (test code = 92507-8) 0-1 0-1 [facility] Opiates Iphkyd0692-88-40 14:21:00* Test Item Value Reference Range Interpretation Comments Urine Opiates Screen (test code = 60018-9) POSITIVE NEGATIVE This test provides only a screen. Positive results should be repeated by a confi rmatory test.[facility] Center[facility]rine Barbiturates Screen 2019-02-16 14:21:00* Test Item Value Reference Range Interpretation Comments Urine Barbiturates Screen (test code = 447937997) NEGATIVE NEGA TIVE [facility] CenterU[facility] Phencyclidine Wbgbwg7884-53-05 14:21:00* Test Item Value Reference Range Interpretation Comments Urine Phencyclidine Screen (test code = 40257-6) NEGATIVE NEGAT CL[place]ENCE [facility] Center[facility] Amphetamines Xyckzs2156-09-55 14:21:00* Test Item Value Reference Range Interpretation Comments Urine Amphetamines Screen (test code = 11539-3) NEGATIVE NEGATI VE [facility] Methamphetamines Jiwoll5532-62-09 14:21:00* Test Item Value Reference Range Interpretation Comments Urine Methamphetamines Screen (test code = Urine Metha mphetamines Screen) NEGATIVE NEGATIVE [facility] Benzodiazepines Bafswz7775-42-21 14:21:00* Test Item Value Reference Range Interpretation Comments Urine Benzodiazepines Screen (test code = 87702-9) NEGATIVE NEG ATIVE [facility] Cocaine Mszpet7215-64-66 14:21:00* Test Item Value Reference Range Interpretation Comments Urine Cocaine Screen (test code = 3398-5) NEGATIVE NEGATIVE [facility] Cannabinoids Lfmjoh7965-80-61 14:21:00* Test Item Value Reference Range Interpretation Comments Urine Cannabinoids Screen (test code = 28623-4) NEGATIVE NEGATI VE THESE RESULTS ARE FOR MEDICAL TREATMENT ONLYTHIS REPORT CONTAINS UNCONFIR MED SCREENING RESULTS*POSITIVE RESULTS WILL BE CONFIRMED BY REFERENCE LAB UPON R EQUEST CUT-OFFDRUG CLASS CONCENTRATION ng/mLAmphetamines 1000Methamphetamines 1000Cocaine 300Opiate 300Phencyc lidine 25Cannabinoid 50Barbiturates 300Benzodiazepine 300Methadone 300[facility] CenterU[facility] Methadone Pekrth3519-43-91 14:21:00* Test Item Value Reference Range Interpretation Comments Urine Methadone Screen (test code = 62268-5) NEGATIVE NEGATIVE THESE RESULTS ARE FOR MEDICAL TREATMENT ONLYTHIS REPORT CONTAINS UNCONFIR MED SCREENING RESULTS*POSITIVE RESULTS WILL BE CONFIRMED BY REFERENCE LAB UPON R EQUEST CUT-OFFDRUG CLASS CONCENTRATION ng/mLAmphetamines 1000Methamphetamines 1000Cocaine Metabolite 300Opiate 300Phencyc lidine 25Cannabinoid 50Barbiturates 300Benzodiazepine 300Methadone 300[facility]
[2019-08-09 09:30] VITALS: BP 155/68
--- NOTE | 2019-08-10 11:39 | Operative Report ---
DATE OF PROCEDURE: 08/09/2019 SURGEON: Heath Downing MD PREOPERATIVE DIAGNOSES: 1. Urinary retention. 2. Urinary tract infection. POSTOPERATIVE DIAGNOSES: 1. Urinary retention. 2. Urinary tract infection. 3. Grade 2 cystocele. 4. Grade 2 rectocele. 5. Atrophic (senile) vaginitis. OPERATIONS PERFORMED: 1. Cystourethroscopy with bilateral ureteral catheterization and retrograde ureteropyelography (separate procedure performed for the urinary tract infections). 2. Interpretation of retrograde ureteropyelography, no radiologist present. 3. Cystotomy and cystostomy placement (separately performed for the urinary retention). 4. Pelvic examination under anesthesia. 5. Interpretation of cystography, no radiologist present. ANESTHESIA: General. COMPLICATIONS: None. CLINICAL SUMMARY: Anastasiia Quevedo is a 68-year-old woman with the above preoperative diagnoses. She was brought for the above procedures. She and her are aware of the risks of bleeding, infection, injury to adjacent structures, need for additional procedures and elected to proceed. OPERATIVE PROCEDURE IN DETAIL: Informed consent was verified. Anastasiia Quevedo was properly identified, taken to the operating room, placed on the cystoscopy table in supine position. Anesthesia was uneventfully begun. The patient was then carefully gently repositioned in dorsal lithotomy position with all pressure points well padded. Her abdomen and genitalia were prepared and draped in usual sterile fashion. The cystoscope sheath with obturator in place was atraumatically inserted into the patient's urethra and the bladder was drained. Panendoscopy revealed some trabeculations, but no tumors, no stones, and no diverticula normally positioned and configured. Ureteral orifices were identified. A ureteral catheter was utilized to cannulate each ureter and retrograde ureteral pyelograms were performed. Interpretation of retrograde ureteropyelography, contrast was instilled in a retrograde fashion bilaterally. There were no tumors no stones, and no diverticula. Unobstructed drainage was observed bilaterally fluoroscopically. The modified 24-Malawian Scot sound with the hole drilled laterally at the hip, was inserted in the patient's urethra and was utilized to tent the bladder up towards the abdominal wall. Marcaine was then infiltrated throughout the suprapubic area in order to provide postoperative pain relief. We then made a stab wound overlying the trocar and cut down utilizing the electrocautery until we brought the sound through the skin of the suprapubic area. We then tied through the hole and sound a 20-Malawian Murillo catheter and pulled it out. I then pulled it into the patient's bladder and out the urethra, then disconnected the suture and pulled back the catheter, as soon as the balloon was in the bladder, we inflated it with 15 mL of sterile water. We irrigated to and fro to ensure it worked properly. The cystoscopy was again performed and it revealed that the balloon was in good position. There was no bleeding intravesically. The bladder was drained. Contrast was then injected into the suprapubic cystostomy and performing a cystogram. Interpretation of cystogram, contrast was injected via the suprapubic cystostomy. There was a double-lumen within the bladder in a proper position. We could not assess the sphincteric reflex. The bladder wall was smooth. There was no extravasation. The patient's bladder was drained. Pelvic examination under anesthesia revealed a grade 2 cystocele and grade 2 rectocele. There was atrophic vaginitis. No abnormal palpable pelvic masses could be appreciated. There were no obvious mucosal lesions. The patient was then uneventfully reversed from anesthesia, taken to recovery room in stable condition. There were no complications to the procedure. She tolerated the procedure well. Plans will be to follow the patient up in about 5 weeks to change her cystostomy tube in the office. Heath Downing MD OH/MODL /[id number] cc: Carlos Barrera MD
== END | disposition home or self-care (01) ==
LOC: OR 05:31
PROVIDERS: ATTEND Urology
DX: N39.0 Urinary tract infection, site not specified (principal); N31.9 Neuromuscular dysfunction of bladder, unspecified; R33.9 Retention of urine, unspecified; N81.10 Cystocele, unspecified; N81.6 Rectocele; N95.2 Postmenopausal atrophic vaginitis; N32.89 Other specified disorders of bladder; N39.46 Mixed incontinence; R35.1 Nocturia; R81 Glycosuria; E66.9 Obesity, unspecified; N81.89 Other female genital prolapse; N36.41 Hypermobility of urethra; S24.109A Unspecified injury at unspecified level of thoracic spinal cord, initial encounter; I10 Essential (primary) hypertension; E03.9 Hypothyroidism, unspecified; E11.9 Type 2 diabetes mellitus without complications; X58.XXXA Exposure to other specified factors, initial encounter; Z01.810 Encounter for preprocedural cardiovascular examination; Z01.812 Encounter for preprocedural laboratory examination; Z01.818 Encounter for other preprocedural examination; Z11.59 Encounter for screening for other viral diseases; Z79.82 Long term (current) use of aspirin; Z79.84 Long term (current) use of oral hypoglycemic drugs; Z79.4 Long term (current) use of insulin; Z68.38 Body mass index [BMI] 38.0-38.9, adult; Z80.52 Family history of malignant neoplasm of bladder
CPT/HCPCS: 36415 ×2; 51102; 52005; 71046; 74420; 80048; 82948; 85025; 87635; 93005; J0696; J1100; J1580; J1885; J2001; J2250; J2405; J2704; J3010; Q9967

== ENCOUNTER 2020-03-06 07:25 | Emergency (ER) | payer MEDICARE, OTHER ==
[~2020-03-06] VITALS: Ht 162.6 cm; Wt 98.9 kg
[~2020-03-06 07:25] MED LIST changes: -B&O 60MG R/S 60 MG SUPP PR ONE; -BUPIVACAINE HCL 0.5% INJ 30 ML VIAL INJ ONE; -CEFTRIAXONE SOD 1 GM/NS 50 ML 50 ML IV ONE; -DEXAMETHASONE SOD PHOS INJ 4 MG/ML VIAL ONE; -FENTANYL CITRATE/PF 100MCG/2 ML INJ ONE; -GENTAMICIN 80MG/NS 100 ML 100 ML IV ONE; -IOPAMIDOL 300MG/ML 50ML INFUS..BTL IV ONE; -KETOROLAC TROMETHAMINE 30 MG/ML VIAL ONE; -LIDOCAINE HCL 2% LOCAL INJ 5 ML SDV VIAL INJ ONE; -MIDAZOLAM HCL 2 MG/2 ML VIAL ONE; -ONDANSETRON HCL INJ 2MG/ML 2ML 2 MG/ML VIAL ONE; -PROPOFOL IV EMULSION 10 MG/ML 20 ML VIAL ONE; -SEVOFLURANE INHAL SOLN 250 ML PEN BTL ONE
== END 2020-03-06 08:02 | disposition home or self-care (01) ==
LOC: ER 07:36
DX: Z43.5 Encounter for attention to cystostomy (principal); N31.9 Neuromuscular dysfunction of bladder, unspecified; E11.40 Type 2 diabetes mellitus with diabetic neuropathy, unspecified; F41.9 Anxiety disorder, unspecified; E03.9 Hypothyroidism, unspecified; T14.8XXA Other injury of unspecified body region, initial encounter
CPT/HCPCS: 99282

== ENCOUNTER 2020-03-07 06:38 | Emergency (ER) | payer MEDICARE, OTHER ==
[~2020-03-07] VITALS: Ht 162.6 cm; Wt 98.9 kg
[2020-03-07] MEDS ORDERED: FENTANYL CITRATE/PF 100MCG/2 ML INJ IJ PRN (08:00)
== END 2020-03-07 08:47 | disposition home or self-care (01) ==
LOC: ER 07:19
DX: T83.89XA Other specified complication of genitourinary prosthetic devices, implants and grafts, initial encounter (principal); E11.9 Type 2 diabetes mellitus without complications; E03.9 Hypothyroidism, unspecified; F41.9 Anxiety disorder, unspecified; F32.9 Major depressive disorder, single episode, unspecified; T14.8XXD Other injury of unspecified body region, subsequent encounter
CPT/HCPCS: 51702; 99284; J3010

== ENCOUNTER 2020-03-08 16:27 | Inpatient (IN) | payer MEDICARE, OTHER ==
[~2020-03-08] VITALS: Ht 162.6 cm; Wt 104.5 kg
[2020-03-08 17:12] LABS: BASOPHILS % 0.3 % (0.0-1.0); EOSINOPHILS # (AUTO) 0.1 (0.0-0.4); HEMATOCRIT 32.5 % (34.2-44.1); HEMOGLOBIN 10.2 g/dL (12.0-16.0); LYMPHOCYTES # (AUTO) 1.1 (1.0-3.2); LYMPHOCYTES % 8.7 % (18.0-39.1); MEAN CORPUSCULAR HEMOGLOBIN 28.5 pg (28-32); MEAN CORPUSCULAR HGB CONC 31.4 g/dL (31-35); MEAN CORPUSCULAR VOLUME 90.8 fL (81-99); MONOCYTES # (AUTO) 0.5 (0.2-0.8); MONOCYTES % 3.8 % (4.4-11.3); NEUTROPHILS # (AUTO) 10.8 (2.1-6.9); NEUTROPHILS % 85.8 % (38.7-80.0); PLATELET COUNT 230 x10e3/uL (140-360); RED BLOOD COUNT 3.58 x10e6/uL (3.6-5.1); RED CELL DISTRIBUTION WIDTH 14.1 % (11.7-14.4)
[2020-03-08] MEDS ORDERED: ACETAMINOPHEN 650 MG SUPP PR ONE (17:15)
[2020-03-08 17:30] LABS: ALBUMIN/GLOBULIN RATIO 0.8 (0.8-2.0); ANION GAP 12.6 mmol/L (8-16); CALCIUM 8.3 mg/dL (8.4-10.2); CREATININE, SERUM 1.11 mg/dL (0.57-1.11); POTASSIUM 4.6 mmol/L (3.5-5.1)
[2020-03-08] MEDS ORDERED: PIPERACILLIN/TAZO 4.5 GM 100 ML IV STA (18:17)
[2020-03-08] MEDS ORDERED: LACTATED RINGER'S 1,000 ML INJ ONE (19:45)
[2020-03-08 20:15] LABS: CLARITY,URINE SL CLOUDY (CLEAR); COLOR,URINE YELLOW (YELLOW); KETONES,URINE NEGATIVE (NEGATIVE); LEUKOCYTE ESTERASE ,URINE SMALL (NEGATIVE); NITRITE,URINE POSITIVE (NEGATIVE); PROTEIN,URINE DIPSTICK NEGATIVE (NEGATIVE); URINE UROBILINOGEN 0.2 mg/dL (0.2 - 1)
[2020-03-08 20:27] LABS: BACTERIA,URINE MODERATE /HPF; EPITHELIAL CELLS,URINE FEW /LPF; RBC,URINE 0-5 /HPF (0-5)
[2020-03-08] MEDS ORDERED: MORPHINE SULFATE 2 MG/ML SYR 1ML IV STA (21:01)
[2020-03-08 22:30] VITALS: BP 137/59
[2020-03-08 22:40] VITALS: BP 137/59
[2020-03-08] MEDS: SODIUM CHLORIDE 0.9% 1000ML 1,000 ML IV SCH (23:25)
[2020-03-09] VITALS (7 sets, daily range): BP systolic 121–158; BP diastolic 58–88
[2020-03-09] MEDS ORDERED: LISINOPRIL10 MG PO ×2 (02:14→02:22)
[2020-03-09] MEDS ORDERED: OXYBUTYNIN CHLOR5 MG PO (02:24)
[2020-03-09] MEDS ORDERED: AMITRIPTYLINE H50 MG PO (02:27)
[2020-03-09] MEDS ORDERED: AZO BLADDER CO300 MG PO (02:29)
[2020-03-09] MEDS: SODIUM CHLORIDE 0.9% 1000ML 1,000 ML IV SCH ×2 (04:42→12:07)
[2020-03-09 05:58] LABS: BASOPHILS % 0.3 % (0.0-1.0); EOSINOPHILS # (AUTO) 0.2 (0.0-0.4); EOSINOPHILS % 2.5 % (0.0-6.0); HEMATOCRIT 31.9 % (34.2-44.1); HEMOGLOBIN 9.8 g/dL (12.0-16.0); LYMPHOCYTES # (AUTO) 1.6 (1.0-3.2); LYMPHOCYTES % 18.5 % (18.0-39.1); MEAN CORPUSCULAR HEMOGLOBIN 28.4 pg (28-32); MEAN CORPUSCULAR HGB CONC 30.7 g/dL (31-35); MEAN CORPUSCULAR VOLUME 92.5 fL (81-99); MONOCYTES # (AUTO) 0.4 (0.2-0.8); MONOCYTES % 4.7 % (4.4-11.3); NEUTROPHILS # (AUTO) 6.5 (2.1-6.9); NEUTROPHILS % 73.7 % (38.7-80.0); PLATELET COUNT 215 x10e3/uL (140-360); RED BLOOD COUNT 3.45 x10e6/uL (3.6-5.1); RED CELL DISTRIBUTION WIDTH 14.1 % (11.7-14.4)
[2020-03-09 06:17] LABS: ANION GAP 10.6 mmol/L (8-16); CALCIUM 8.2 mg/dL (8.4-10.2); CREATININE, SERUM 0.95 mg/dL (0.57-1.11); POTASSIUM 4.6 mmol/L (3.5-5.1)
[2020-03-09] MEDS ORDERED: MORPHINE SULFATE 30 MG TAB ER PO PRN (10:15)
[2020-03-09] MEDS ORDERED: INSULIN GLARGINE SQ SCH (10:15)
[2020-03-09] MEDS ORDERED: CLONAZEPAM 1 MG TAB PO PRN (10:15)
[2020-03-09] MEDS ORDERED: INSULIN LISPRO 5 UNIT SC SCH (11:30)
[2020-03-09] MEDS: MORPHINE SULFATE ORAL SOLN 10 MG/5 ML UDC PO PRN (11:38)
[2020-03-09] MEDS: INSULIN GLARGINE 100 UNITS/ML VIAL SQ SCH ×2 (11:55→21:00)
[2020-03-09] MEDS: INSULIN LISPRO 100 UNIT/1 ML 3ML VIAL SQ SCH ×2 (11:57→16:30)
[2020-03-09] MEDS: [UNRECOGNIZED DRUG - OTHER] PO SCH (12:29)
[2020-03-09] MEDS: SOY GERM PO SCH (12:29)
[2020-03-09] MEDS: PUMPKIN SEED EXTRACT PO SCH (12:29)
[2020-03-09] MEDS ORDERED: MORPHINE SULFATE 30 MG TAB ER PO SCH (14:00)
[2020-03-09] MEDS: MORPHINE SULFATE 15MG TAB CR PO SCH ×2 (14:32→22:13)
[2020-03-09] MEDS: TIZANIDINE HCL 4 MG TAB PO SCH ×2 (14:32→22:14)
[2020-03-09] MEDS: GABAPENTIN 400 MG CAP PO SCH ×2 (14:32→22:13)
[2020-03-09] MEDS ORDERED: ACETAMINOPHEN 325 MG TAB PO PRN (15:15)
[2020-03-09] MEDS ORDERED: INSULIN LISPRO 10 UNIT SC SCH (16:30)
[2020-03-09] MEDS: OXYBUTYNIN CHLORIDE 5 MG TAB PO SCH (16:40)
[2020-03-09] MEDS: CEFTRIAXONE SOD 2 GM/NS 100 ML 100 ML IV SCH (16:41)
[2020-03-09] MEDS: AZITHROMYCIN 500MG/NS 250 ML 250 ML IV SCH (18:36)
[2020-03-09] MEDS: ATORVASTATIN 20 MG TAB PO SCH (21:00)
[2020-03-09] MEDS: AMITRIPTYLINE HCL 25 MG TAB PO SCH (21:00)
[2020-03-09] MEDS ORDERED: NON-FORMULARY MEDICATION (Amitriptyline Hcl 50 MG) PO SCH (21:00)
[2020-03-10] VITALS (8 sets, daily range): BP systolic 124–179; BP diastolic 56–79
[2020-03-10] MEDS: MORPHINE SULFATE ORAL SOLN 10 MG/5 ML UDC PO PRN ×2 (04:15→11:11)
[2020-03-10] MEDS: SODIUM CHLORIDE 0.9% 1000ML 1,000 ML IV SCH ×3 (05:15→12:07)
[2020-03-10] MEDS: LEVOTHYROXINE SODIUM 75 MCG TAB PO SCH (06:00)
[2020-03-10] MEDS: TIZANIDINE HCL 4 MG TAB PO SCH ×3 (06:00→22:00)
[2020-03-10] MEDS: MORPHINE SULFATE 15MG TAB CR PO SCH ×3 (06:00→22:00)
[2020-03-10] MEDS: GABAPENTIN 400 MG CAP PO SCH ×3 (06:00→22:00)
[2020-03-10] MEDS ORDERED: INSULIN LISPRO 6 UNIT SC SCH (07:30)
[2020-03-10] MEDS: INSULIN LISPRO 100 UNIT/1 ML 3ML VIAL SQ SCH ×3 (07:30→16:30)
[2020-03-10] MEDS: INSULIN GLARGINE 100 UNITS/ML VIAL SQ SCH ×2 (09:00→21:00)
[2020-03-10] MEDS: PUMPKIN SEED EXTRACT PO SCH ×2 (09:00→17:00)
[2020-03-10] MEDS: [UNRECOGNIZED DRUG - OTHER] PO SCH ×2 (09:00→17:00)
[2020-03-10] MEDS: SOY GERM PO SCH ×2 (09:00→17:00)
[2020-03-10] MEDS: OXYBUTYNIN CHLORIDE 5 MG TAB PO SCH ×2 (10:28→16:54)
[2020-03-10] MEDS: ASPIRIN 81 MG CHEW TAB PO SCH (10:28)
[2020-03-10] MEDS: DULOXETINE HCL 30 MG DELAYED RELEASE PO SCH (10:28)
[2020-03-10] MEDS: MULTIVITAMINS/MINERALS TAB PO SCH (10:29)
[2020-03-10] MEDS: LISINOPRIL 10 MG TAB PO SCH (10:29)
[2020-03-10] MEDS: AZITHROMYCIN 500MG/NS 250 ML 250 ML IV SCH (16:54)
[2020-03-10] MEDS: CEFTRIAXONE SOD 2 GM/NS 100 ML 100 ML IV SCH (19:01)
[2020-03-10] MEDS: ATORVASTATIN 20 MG TAB PO SCH (22:00)
[2020-03-10] MEDS: AMITRIPTYLINE HCL 25 MG TAB PO SCH (22:00)
[2020-03-11] VITALS (7 sets, daily range): BP systolic 153–181; BP diastolic 59–86
[2020-03-11] MEDS: MORPHINE SULFATE ORAL SOLN 10 MG/5 ML UDC PO PRN ×2 (00:22→09:42)
[2020-03-11] MEDS: TIZANIDINE HCL 4 MG TAB PO SCH ×3 (06:33→21:50)
[2020-03-11] MEDS: MORPHINE SULFATE 15MG TAB CR PO SCH ×3 (06:33→22:00)
[2020-03-11] MEDS: GABAPENTIN 400 MG CAP PO SCH ×3 (06:33→21:50)
[2020-03-11] MEDS: LEVOTHYROXINE SODIUM 75 MCG TAB PO SCH (06:33)
[2020-03-11] MEDS: INSULIN LISPRO 100 UNIT/1 ML 3ML VIAL SQ SCH ×3 (07:30→17:48)
[2020-03-11] MEDS: ASPIRIN 81 MG CHEW TAB PO SCH (08:32)
[2020-03-11] MEDS: DULOXETINE HCL 30 MG DELAYED RELEASE PO SCH (08:32)
[2020-03-11] MEDS: MULTIVITAMINS/MINERALS TAB PO SCH (08:32)
[2020-03-11] MEDS: OXYBUTYNIN CHLORIDE 5 MG TAB PO SCH ×2 (08:32→17:25)
[2020-03-11] MEDS: LISINOPRIL 10 MG TAB PO SCH (08:32)
[2020-03-11] MEDS: [UNRECOGNIZED DRUG - OTHER] PO SCH ×2 (08:34→17:00)
[2020-03-11] MEDS: SOY GERM PO SCH ×2 (08:34→17:00)
[2020-03-11] MEDS: PUMPKIN SEED EXTRACT PO SCH ×2 (08:34→17:00)
[2020-03-11] MEDS: INSULIN GLARGINE 100 UNITS/ML VIAL SQ SCH ×2 (08:35→22:06)
[2020-03-11] MEDS ORDERED: SODIUM CHLORIDE 0.9% 250ML 250 ML ONE (13:03)
[2020-03-11] MEDS: AZITHROMYCIN 500MG/NS 250 ML 250 ML IV SCH (13:11)
[2020-03-11] MEDS: CEFTRIAXONE SOD 2 GM/NS 100 ML 100 ML IV SCH (17:24)
[2020-03-11] MEDS: AMITRIPTYLINE HCL 25 MG TAB PO SCH (21:50)
[2020-03-11] MEDS: ATORVASTATIN 20 MG TAB PO SCH (21:50)
[2020-03-12] VITALS (8 sets, daily range): BP systolic 127–172; BP diastolic 55–76
[2020-03-12] MEDS: GABAPENTIN 400 MG CAP PO SCH ×3 (05:45→21:28)
[2020-03-12] MEDS: LEVOTHYROXINE SODIUM 75 MCG TAB PO SCH (05:45)
[2020-03-12] MEDS: MORPHINE SULFATE 15MG TAB CR PO SCH ×3 (05:46→21:28)
[2020-03-12] MEDS: TIZANIDINE HCL 4 MG TAB PO SCH ×3 (05:46→21:28)
[2020-03-12] MEDS: INSULIN LISPRO 100 UNIT/1 ML 3ML VIAL SQ SCH ×3 (07:30→16:20)
[2020-03-12] MEDS: LISINOPRIL 10 MG TAB PO SCH (08:06)
[2020-03-12] MEDS: ASPIRIN 81 MG CHEW TAB PO SCH (08:06)
[2020-03-12] MEDS: PUMPKIN SEED EXTRACT PO SCH ×2 (08:06→16:05)
[2020-03-12] MEDS: [UNRECOGNIZED DRUG - OTHER] PO SCH ×2 (08:06→16:05)
[2020-03-12] MEDS: DULOXETINE HCL 30 MG DELAYED RELEASE PO SCH (08:06)
[2020-03-12] MEDS: MULTIVITAMINS/MINERALS TAB PO SCH (08:06)
[2020-03-12] MEDS: OXYBUTYNIN CHLORIDE 5 MG TAB PO SCH ×2 (08:06→16:02)
[2020-03-12] MEDS: SOY GERM PO SCH ×2 (08:06→16:05)
[2020-03-12] MEDS: INSULIN GLARGINE 100 UNITS/ML VIAL SQ SCH ×2 (08:06→21:12)
[2020-03-12] MEDS: MORPHINE SULFATE ORAL SOLN 10 MG/5 ML UDC PO PRN (10:10)
[2020-03-12] MEDS: AZITHROMYCIN 500MG/NS 250 ML 250 ML IV SCH (16:01)
[2020-03-12] MEDS: CEFTRIAXONE SOD 2 GM/NS 100 ML 100 ML IV SCH (17:46)
[2020-03-12] MEDS: ATORVASTATIN 20 MG TAB PO SCH (21:11)
[2020-03-12] MEDS: AMITRIPTYLINE HCL 25 MG TAB PO SCH (21:11)
[2020-03-13 00:14] VITALS: BP 136/75
[2020-03-13] MEDS: MORPHINE SULFATE ORAL SOLN 10 MG/5 ML UDC PO PRN ×2 (00:30→11:04)
[2020-03-13 05:39] VITALS: BP 179/72
[2020-03-13] MEDS: LEVOTHYROXINE SODIUM 75 MCG TAB PO SCH (05:51)
[2020-03-13] MEDS: GABAPENTIN 400 MG CAP PO SCH ×2 (05:51→14:28)
[2020-03-13] MEDS: MORPHINE SULFATE 15MG TAB CR PO SCH ×2 (05:51→14:28)
[2020-03-13] MEDS: TIZANIDINE HCL 4 MG TAB PO SCH ×2 (05:51→14:28)
[2020-03-13 06:21] LABS: BASOPHILS % 0.8 % (0.0-1.0); EOSINOPHILS # (AUTO) 0.3 (0.0-0.4); EOSINOPHILS % 6.5 % (0.0-6.0); HEMATOCRIT 31.4 % (34.2-44.1); HEMOGLOBIN 9.8 g/dL (12.0-16.0); LYMPHOCYTES # (AUTO) 1.7 (1.0-3.2); LYMPHOCYTES % 33.9 % (18.0-39.1); MEAN CORPUSCULAR HEMOGLOBIN 28.6 pg (28-32); MEAN CORPUSCULAR HGB CONC 31.2 g/dL (31-35); MEAN CORPUSCULAR VOLUME 91.5 fL (81-99); MONOCYTES # (AUTO) 0.3 (0.2-0.8); MONOCYTES % 6.7 % (4.4-11.3); NEUTROPHILS # (AUTO) 2.6 (2.1-6.9); NEUTROPHILS % 51.5 % (38.7-80.0); PLATELET COUNT 198 x10e3/uL (140-360); RED BLOOD COUNT 3.43 x10e6/uL (3.6-5.1); RED CELL DISTRIBUTION WIDTH 13.9 % (11.7-14.4)
[2020-03-13 06:57] LABS: BLOOD UREA NITROGEN 11 mg/dL (7-26); BUN/CREATININE RATIO 13 (6-25); CALCIUM 8.5 mg/dL (8.4-10.2); CARBON DIOXIDE 25 mmol/L (22-29); CHLORIDE 108 mmol/L (98-107); CREATININE, SERUM 0.88 mg/dL (0.57-1.11); EST GLOMERULAR FILTRATION RATE > 60 ML/MIN (60-); GLUCOSE 159 mg/dL (74-118); SODIUM 141 mmol/L (136-145)
[2020-03-13 08:13] VITALS: BP 161/77
[2020-03-13] MEDS: OXYBUTYNIN CHLORIDE 5 MG TAB PO SCH ×2 (08:24→17:48)
[2020-03-13] MEDS: SOY GERM PO SCH ×2 (08:24→17:00)
[2020-03-13] MEDS: DULOXETINE HCL 30 MG DELAYED RELEASE PO SCH (08:24)
[2020-03-13] MEDS: PUMPKIN SEED EXTRACT PO SCH ×2 (08:24→17:00)
[2020-03-13] MEDS: [UNRECOGNIZED DRUG - OTHER] PO SCH ×2 (08:24→17:00)
[2020-03-13] MEDS: ASPIRIN 81 MG CHEW TAB PO SCH (08:24)
[2020-03-13] MEDS: MULTIVITAMINS/MINERALS TAB PO SCH (08:25)
[2020-03-13] MEDS: LISINOPRIL 10 MG TAB PO SCH (08:25)
[2020-03-13] MEDS: INSULIN GLARGINE 100 UNITS/ML VIAL SQ SCH (08:37)
[2020-03-13] MEDS: INSULIN LISPRO 100 UNIT/1 ML 3ML VIAL SQ SCH ×3 (08:37→16:30)
[2020-03-13 08:56] VITALS: BP 161/77
[2020-03-13 12:00] VITALS: BP 181/77
[2020-03-13] MEDS: AZITHROMYCIN 500MG/NS 250 ML 250 ML IV SCH (14:28)
[2020-03-13 15:57] VITALS: BP 152/56
[2020-03-13] MEDS: CEFTRIAXONE SOD 2 GM/NS 100 ML 100 ML IV SCH (16:00)
== END 2020-03-13 18:24 | disposition home or self-care (01) | DRG 193 ==
LOC: ER 16:40 → ERHOLD 20:39 → MED/SURG3 22:33
PROVIDERS: ADMIT Internal Medicine; ATTEND Internal Medicine
DX: J15.9 Unspecified bacterial pneumonia (principal); G93.41 Metabolic encephalopathy; N39.0 Urinary tract infection, site not specified; R41.82 Altered mental status, unspecified; N32.81 Overactive bladder; E03.9 Hypothyroidism, unspecified; Z68.39 Body mass index [BMI] 39.0-39.9, adult; Z20.828 Contact with and (suspected) exposure to other viral communicable diseases; E11.65 Type 2 diabetes mellitus with hyperglycemia; I10 Essential (primary) hypertension; G89.4 Chronic pain syndrome; E66.01 Morbid (severe) obesity due to excess calories; E11.40 Type 2 diabetes mellitus with diabetic neuropathy, unspecified; Z79.899 Other long term (current) drug therapy
CPT/HCPCS: 36415; 70450; 71045; 71046; 80048; 80053; 81001; 82948; 83605; 85025; 87040; 87086; 87186; 93005; 99284; J0456; J0696; J1815; J2270; J2543; J7030; J7050; J7121; U0002

== ENCOUNTER → 2020-03-20 | Outpatient (CLI) | payer MEDICARE, OTHER ==
[~2020-03-20] MED LIST changes: +AZO BLADDER CO300 MG PO; +OXYBUTYNIN CHLOR5 MG PO
== END ==
LOC: MRI 09:38
PROVIDERS: ATTEND Internal Medicine
DX: M47.9 Spondylosis, unspecified (principal)
CPT/HCPCS: 72148

== ENCOUNTER → 2020-07-07 | Day surgery (SDC) | payer MEDICARE, OTHER ==
[2020-07-05 10:13] LABS: BASOPHILS # (AUTO) 0.1 (0.0-0.1); BASOPHILS % 0.9 % (0.0-1.0); EOSINOPHILS # (AUTO) 0.4 (0.0-0.4); EOSINOPHILS % 6.2 % (0.0-6.0); HEMATOCRIT 31.3 % (34.2-44.1); HEMOGLOBIN 9.9 g/dL (12.0-16.0); LYMPHOCYTES # (AUTO) 1.6 (1.0-3.2); LYMPHOCYTES % 24.8 % (18.0-39.1); MEAN CORPUSCULAR HEMOGLOBIN 29.3 pg (28-32); MEAN CORPUSCULAR HGB CONC 31.6 g/dL (31-35); MEAN CORPUSCULAR VOLUME 92.6 fL (81-99); MONOCYTES # (AUTO) 0.4 (0.2-0.8); MONOCYTES % 5.7 % (4.4-11.3); NEUTROPHILS % 61.9 % (38.7-80.0); PLATELET COUNT 259 x10e3/uL (140-360); RED BLOOD COUNT 3.38 x10e6/uL (3.6-5.1); RED CELL DISTRIBUTION WIDTH 14.3 % (11.7-14.4)
[2020-07-05 10:39] LABS: ANION GAP 13.4 mmol/L (8-16); CALCIUM 8.7 mg/dL (8.4-10.2); CREATININE, SERUM 1.06 mg/dL (0.57-1.11); POTASSIUM 4.4 mmol/L (3.5-5.1)
[~2020-07-07] MED LIST changes: +AMPICILLIN SOD 1 GM/NS 50ML 100 ML IV ONE; +B&O 60MG R/S 60 MG SUPP PR ONE; +BACTRIM DS TAB1 EACH PO; +BOTULINUM TOXIN TYPE A 100 UNIT VIAL IM ONE; +DESFLURANE 240 ML BTL INH ONE; +DEXAMETHASONE SOD PHOS INJ 4 MG/ML VIAL ONE; +GENTAMICIN 80MG/NS 100 ML 200 ML IV ONE; +IOPAMIDOL 300MG/ML 50ML INFUS..BTL IV ONE; +LIDOCAINE HCL 2% LOCAL INJ 5 ML SDV VIAL INJ ONE; +MORPHINE SULFAT15 MG PO; +ONDANSETRON HCL INJ 2MG/ML 2ML 2 MG/ML VIAL ONE; +PENICILLIN V P500 MG PO; +PROPOFOL IV EMULSION 10 MG/ML 20 ML VIAL ONE
[2020-07-07 10:38] VITALS: BP 129/64
== END | disposition home or self-care (01) ==
LOC: OR 07:57
PROVIDERS: ATTEND Urology
DX: N39.41 Urge incontinence (principal); N39.0 Urinary tract infection, site not specified; N81.6 Rectocele; N95.2 Postmenopausal atrophic vaginitis; N32.89 Other specified disorders of bladder; Z43.5 Encounter for attention to cystostomy; I10 Essential (primary) hypertension; E11.9 Type 2 diabetes mellitus without complications; G83.9 Paralytic syndrome, unspecified; G89.29 Other chronic pain; G62.9 Polyneuropathy, unspecified; Z91.048 Other nonmedicinal substance allergy status; Z01.810 Encounter for preprocedural cardiovascular examination; Z01.812 Encounter for preprocedural laboratory examination; Z20.822 Contact with and (suspected) exposure to COVID-19; Z79.82 Long term (current) use of aspirin; Z79.4 Long term (current) use of insulin
CPT/HCPCS: 36415 ×2; 51705; 52005; 52287; 74420; 80048; 82948; 85025; 93005; C1758; J0290; J0587; J1580; Q9967; U0002

== ENCOUNTER → 2020-10-06 | Day surgery (SDC) | payer MEDICARE, OTHER ==
[2020-10-03 14:17] LABS: BASOPHILS # (AUTO) 0.1 (0.0-0.1); BASOPHILS % 0.5 % (0.0-1.0); EOSINOPHILS # (AUTO) 0.1 (0.0-0.4); EOSINOPHILS % 0.9 % (0.0-6.0); HEMATOCRIT 31.3 % (34.2-44.1); HEMOGLOBIN 9.6 g/dL (12.0-16.0); LYMPHOCYTES # (AUTO) 1.2 (1.0-3.2); LYMPHOCYTES % 12.8 % (18.0-39.1); MEAN CORPUSCULAR HEMOGLOBIN 30.9 pg (28-32); MEAN CORPUSCULAR HGB CONC 30.7 g/dL (31-35); MEAN CORPUSCULAR VOLUME 100.6 fL (81-99); MONOCYTES # (AUTO) 0.3 (0.2-0.8); NEUTROPHILS # (AUTO) 7.8 (2.1-6.9); NEUTROPHILS % 82.5 % (38.7-80.0); PLATELET COUNT 233 x10e3/uL (140-360); RED BLOOD COUNT 3.11 x10e6/uL (3.6-5.1)
[2020-10-03 14:42] LABS: ANION GAP 12.7 mmol/L (8-16); CALCIUM 8.5 mg/dL (8.4-10.2); CREATININE, SERUM 1.14 mg/dL (0.57-1.11)
[2020-10-03 14:43] LABS: POTASSIUM 5.7 mmol/L (3.5-5.1)
[~2020-10-06] MED LIST changes: -AMPICILLIN SOD 1 GM/NS 50ML 100 ML IV ONE; -DESFLURANE 240 ML BTL INH ONE; +DEXTROSE 5% 250ML 250 ML IV ONE; +FENTANYL CITRATE/PF 100MCG/2 ML INJ ONE; +POVIDONE IODINE 0.05% 0.05 % ML PO ONE; +PREDNISONE5 MG/5 ML PO; +PRILOSEC OTC20 MG; +SEVOFLURANE INHAL SOLN 250 ML PEN BTL ONE
[2020-10-06 13:22] LABS: ANION GAP 16.1 mmol/L (8-16); CALCIUM 8.6 mg/dL (8.4-10.2); CREATININE, SERUM 1.07 mg/dL (0.57-1.11); POTASSIUM 5.1 mmol/L (3.5-5.1)
[2020-10-06 17:20] VITALS: BP 141/64
== END | disposition home or self-care (01) ==
LOC: OR 07:00
PROVIDERS: ATTEND Urology
DX: N32.81 Overactive bladder (principal); N39.46 Mixed incontinence; R35.1 Nocturia; N39.0 Urinary tract infection, site not specified; R81 Glycosuria; R39.12 Poor urinary stream; Z80.52 Family history of malignant neoplasm of bladder; N31.9 Neuromuscular dysfunction of bladder, unspecified; E66.9 Obesity, unspecified; N81.89 Other female genital prolapse; N95.2 Postmenopausal atrophic vaginitis; N36.41 Hypermobility of urethra; Z01.812 Encounter for preprocedural laboratory examination; E11.9 Type 2 diabetes mellitus without complications; Z93.50 Unspecified cystostomy status; N81.10 Cystocele, unspecified; N81.6 Rectocele; Z68.38 Body mass index [BMI] 38.0-38.9, adult; Z79.4 Long term (current) use of insulin
CPT/HCPCS: 36415 ×2; 51710; 52287; 74420; 80048 ×2; 82948; 85025; C1758; J0587; J1100; J1580; J2001; J2405; J2704; J3010; J7070; Q9967

== ENCOUNTER 2021-02-17 14:26 | Inpatient (IN) | payer MEDICARE, OTHER ==
[~2021-02-17] VITALS: Ht 162.6 cm; Wt 104.3 kg
[~2021-02-17 14:26] MED LIST changes: -B&O 60MG R/S 60 MG SUPP PR ONE; -BOTULINUM TOXIN TYPE A 100 UNIT VIAL IM ONE; -DEXAMETHASONE SOD PHOS INJ 4 MG/ML VIAL ONE; -DEXTROSE 5% 250ML 250 ML IV ONE; -FENTANYL CITRATE/PF 100MCG/2 ML INJ ONE; -GENTAMICIN 80MG/NS 100 ML 200 ML IV ONE; -IOPAMIDOL 300MG/ML 50ML INFUS..BTL IV ONE; -LIDOCAINE HCL 2% LOCAL INJ 5 ML SDV VIAL INJ ONE; -ONDANSETRON HCL INJ 2MG/ML 2ML 2 MG/ML VIAL ONE; -POVIDONE IODINE 0.05% 0.05 % ML PO ONE; -PROPOFOL IV EMULSION 10 MG/ML 20 ML VIAL ONE; -SEVOFLURANE INHAL SOLN 250 ML PEN BTL ONE
[2021-02-17] MEDS ORDERED: SODIUM CHLORIDE 0.9% 1000ML 1,000 ML IV STA ×2 (14:57→16:46)
[2021-02-17 15:26] LABS: BASOPHILS % 0.4 % (0.0-1.0); EOSINOPHILS # (AUTO) 0.4 (0.0-0.4); HEMATOCRIT 23.2 % (34.2-44.1); HEMOGLOBIN 7.1 g/dL (12.0-16.0); LYMPHOCYTES # (AUTO) 1.5 (1.0-3.2); LYMPHOCYTES % 20.1 % (18.0-39.1); MEAN CORPUSCULAR HEMOGLOBIN 30.5 pg (28-32); MEAN CORPUSCULAR HGB CONC 30.6 g/dL (31-35); MEAN CORPUSCULAR VOLUME 99.6 fL (81-99); MONOCYTES # (AUTO) 0.4 (0.2-0.8); MONOCYTES % 5.4 % (4.4-11.3); NEUTROPHILS # (AUTO) 4.9 (2.1-6.9); NEUTROPHILS % 67.8 % (38.7-80.0); PLATELET COUNT 192 x10e3/uL (140-360); RED BLOOD COUNT 2.33 x10e6/uL (3.6-5.1); RED CELL DISTRIBUTION WIDTH 17.1 % (11.7-14.4)
[2021-02-17 15:42] LABS: COLOR,URINE YELLOW (YELLOW)
[2021-02-17 15:43] LABS: CLARITY,URINE CLOUDY (CLEAR); KETONES,URINE NEGATIVE (NEGATIVE); LEUKOCYTE ESTERASE ,URINE LARGE (NEGATIVE); NITRITE,URINE NEGATIVE (NEGATIVE); PROTEIN,URINE DIPSTICK TRACE (NEGATIVE); URINE UROBILINOGEN 0.2 mg/dL (0.2 - 1)
[2021-02-17 15:45] LABS: BACTERIA,URINE MANY /HPF; EPITHELIAL CELLS,URINE MODERATE /LPF; WBC,URINE (MAN) 21-50 /HPF (0-5)
[2021-02-17] MEDS ORDERED: MEROPENEM 1 GM in SODIUM CHLORIDE 0.9% 100 ML IV ONE (16:00)
[2021-02-17] MEDS ORDERED: Vancomycin IV 1 GM in SODIUM CHLORIDE 0.9% 250ML 250 ML IV ONE (16:00)
[2021-02-17 16:21] LABS: ALBUMIN/GLOBULIN RATIO 1.1 (0.8-2.0); ANION GAP 11.3 mmol/L (8-16); CALCIUM 8.2 mg/dL (8.4-10.2); CREATININE, SERUM 1.3 mg/dL (0.57-1.11); POTASSIUM 5.3 mmol/L (3.5-5.1)
[2021-02-17 18:29] LABS: CREATINE KINASE 114 IU/L (29-168)
[2021-02-17] MEDS ORDERED: DEXTROSE 50% SYRINGE 50 ML IV PRN ×2 (18:30→23:15)
[2021-02-17] MEDS ORDERED: SOD POLYSTYRENE SULFONATE SUSP 15 GM/60 ML BTL PO ONE ×2 (19:00)
[2021-02-17] MEDS ORDERED: SODIUM CHLORIDE 0.9% 250ML 250 ML IV ONE (19:00)
[2021-02-17 19:58] LABS: CREATINE KINASE MB 3.1 ng/mL (0-5.0)
[2021-02-17] MEDS: MORPHINE SULFATE 15MG TAB CR PO SCH (20:08)
[2021-02-17] MEDS ORDERED: INSULIN LISPRO 100 UNIT/1 ML 3ML VIAL SQ SCH (21:00)
[2021-02-17 21:14] VITALS: BP 126/57
[2021-02-17 21:20] VITALS: BP 126/57
[2021-02-17 21:33] LABS: FERRITIN 163.21 ng/mL (4.63-204.00)
[2021-02-17] MEDS: GABAPENTIN 400 MG CAP PO SCH (23:15)
[2021-02-17] MEDS ORDERED: CLONAZEPAM 1 MG TAB PO PRN (23:15)
[2021-02-17] MEDS: AMITRIPTYLINE HCL 25 MG TAB PO SCH (23:15)
[2021-02-17] MEDS: OXYBUTYNIN CHLORIDE 5 MG TAB PO SCH (23:15)
[2021-02-17] MEDS: ATORVASTATIN 20 MG TAB PO SCH (23:15)
[2021-02-18] VITALS: BP 121/94
[2021-02-18 04:00] VITALS: BP 125/53
[2021-02-18] MEDS: MEROPENEM 1 GM in SODIUM CHLORIDE 0.9% 100 ML IV SCH ×3 (04:00→20:58)
[2021-02-18] MEDS: GABAPENTIN 400 MG CAP PO SCH ×3 (06:00→22:12)
[2021-02-18] MEDS: MORPHINE SULFATE 15MG TAB CR PO SCH ×3 (06:00→22:12)
[2021-02-18 06:32] LABS: BASOPHILS % 0.4 % (0.0-1.0); EOSINOPHILS # (AUTO) 0.3 (0.0-0.4); EOSINOPHILS % 5.1 % (0.0-6.0); HEMATOCRIT 27.3 % (34.2-44.1); HEMOGLOBIN 8.7 g/dL (12.0-16.0); LYMPHOCYTES # (AUTO) 1.4 (1.0-3.2); MEAN CORPUSCULAR HEMOGLOBIN 30.6 pg (28-32); MEAN CORPUSCULAR HGB CONC 31.9 g/dL (31-35); MEAN CORPUSCULAR VOLUME 96.1 fL (81-99); MONOCYTES # (AUTO) 0.5 (0.2-0.8); MONOCYTES % 6.7 % (4.4-11.3); NEUTROPHILS # (AUTO) 4.4 (2.1-6.9); NEUTROPHILS % 66.5 % (38.7-80.0); PLATELET COUNT 203 x10e3/uL (140-360); RED BLOOD COUNT 2.84 x10e6/uL (3.6-5.1); RED CELL DISTRIBUTION WIDTH 16.2 % (11.7-14.4)
[2021-02-18 06:52] LABS: ALBUMIN 2.9 g/dL (3.5-5.0); ALBUMIN/GLOBULIN RATIO 0.9 (0.8-2.0); ANION GAP 13.3 mmol/L (8-16); CALCIUM 8.9 mg/dL (8.4-10.2); CREATININE, SERUM 0.98 mg/dL (0.57-1.11); POTASSIUM 4.3 mmol/L (3.5-5.1)
[2021-02-18 07:24] LABS: CREATINE KINASE 116 IU/L (29-168)
[2021-02-18] MEDS: INSULIN LISPRO 100 UNIT/1 ML 3ML VIAL SQ SCH ×4 (07:30→20:59)
[2021-02-18 08:24] VITALS: BP 151/64
[2021-02-18] MEDS: ASPIRIN 81 MG CHEW TAB PO SCH (08:51)
[2021-02-18] MEDS: LEVOTHYROXINE SODIUM 75 MCG TAB PO SCH (08:51)
[2021-02-18] MEDS: OXYBUTYNIN CHLORIDE 5 MG TAB PO SCH ×2 (08:51→16:26)
[2021-02-18] MEDS: DULOXETINE HCL 30 MG DELAYED RELEASE PO SCH (08:51)
[2021-02-18] MEDS: Morphine 2mg Syringe 2 MG/ML SYR IV PRN (09:33)
[2021-02-18] MEDS ORDERED: MAGNESIUM OXIDE 400 MG TAB PO NR (09:45)
[2021-02-18] MEDS ORDERED: MORPHINE SULFATE 15MG TAB CR PO NR (10:34)
[2021-02-18] MEDS ORDERED: MORPHINE SULFAT15 M1 PO (10:39)
[2021-02-18] MEDS ORDERED: BISACODYL 10 MG SUPP PR NR (10:45)
[2021-02-18] MEDS: POLYETHYLENE GLYCOL 3350 17 GM PACK PO SCH (10:59)
[2021-02-18 19:38] VITALS: BP 151/64
[2021-02-18 20:00] VITALS: BP 130/62
[2021-02-18] MEDS: AMITRIPTYLINE HCL 25 MG TAB PO SCH (20:58)
[2021-02-18] MEDS: ATORVASTATIN 20 MG TAB PO SCH (20:58)
[2021-02-19] VITALS (8 sets, daily range): BP systolic 133–163; BP diastolic 51–74
[2021-02-19] MEDS: MORPHINE SULFATE 15MG TAB CR PO SCH ×3 (05:52→22:00)
[2021-02-19] MEDS: GABAPENTIN 400 MG CAP PO SCH ×3 (05:52→22:00)
[2021-02-19 05:57] LABS: BASOPHILS % 0.6 % (0.0-1.0); EOSINOPHILS # (AUTO) 0.3 (0.0-0.4); EOSINOPHILS % 3.7 % (0.0-6.0); HEMATOCRIT 26.3 % (34.2-44.1); HEMOGLOBIN 8.3 g/dL (12.0-16.0); LYMPHOCYTES # (AUTO) 1.9 (1.0-3.2); LYMPHOCYTES % 27.5 % (18.0-39.1); MEAN CORPUSCULAR HEMOGLOBIN 30.3 pg (28-32); MEAN CORPUSCULAR HGB CONC 31.6 g/dL (31-35); MONOCYTES # (AUTO) 0.4 (0.2-0.8); MONOCYTES % 6.4 % (4.4-11.3); NEUTROPHILS # (AUTO) 4.1 (2.1-6.9); NEUTROPHILS % 61.7 % (38.7-80.0); PLATELET COUNT 188 x10e3/uL (140-360); RED BLOOD COUNT 2.74 x10e6/uL (3.6-5.1); RED CELL DISTRIBUTION WIDTH 15.9 % (11.7-14.4)
[2021-02-19 06:39] LABS: ANION GAP 12.7 mmol/L (8-16); CALCIUM 8.8 mg/dL (8.4-10.2); CREATININE, SERUM 0.81 mg/dL (0.57-1.11); MAGNESIUM 1.8 MG/DL (1.3-2.1); POTASSIUM 3.7 mmol/L (3.5-5.1)
[2021-02-19] MEDS: INSULIN LISPRO 100 UNIT/1 ML 3ML VIAL SQ SCH ×4 (07:30→21:00)
[2021-02-19] MEDS: ASPIRIN 81 MG CHEW TAB PO SCH (08:59)
[2021-02-19] MEDS: MEROPENEM 1 GM in SODIUM CHLORIDE 0.9% 100 ML IV SCH ×2 (08:59→21:25)
[2021-02-19] MEDS: OXYBUTYNIN CHLORIDE 5 MG TAB PO SCH ×2 (09:00→16:41)
[2021-02-19] MEDS ORDERED: FERROUS SULFATE 325 MG TAB PO SCH (09:00)
[2021-02-19] MEDS: DULOXETINE HCL 30 MG DELAYED RELEASE PO SCH (09:00)
[2021-02-19] MEDS: POLYETHYLENE GLYCOL 3350 17 GM PACK PO SCH (09:00)
[2021-02-19] MEDS: LEVOTHYROXINE SODIUM 75 MCG TAB PO SCH (10:11)
[2021-02-19] MEDS ORDERED: SODIUM CHLORIDE 0.9% 250ML 250 ML ONE (11:13)
[2021-02-19] MEDS: Morphine 2mg Syringe 2 MG/ML SYR IV PRN (11:31)
[2021-02-19] MEDS: AMITRIPTYLINE HCL 25 MG TAB PO SCH (21:22)
[2021-02-19] MEDS: ATORVASTATIN 20 MG TAB PO SCH (21:22)
[2021-02-20] VITALS (9 sets, daily range): BP systolic 141–176; BP diastolic 57–106
[2021-02-20] MEDS: Morphine 2mg Syringe 2 MG/ML SYR IV PRN ×2 (03:28→11:59)
[2021-02-20] MEDS: MORPHINE SULFATE 15MG TAB CR PO SCH ×3 (06:10→21:30)
[2021-02-20] MEDS: GABAPENTIN 400 MG CAP PO SCH ×3 (06:10→21:30)
[2021-02-20] MEDS: INSULIN LISPRO 100 UNIT/1 ML 3ML VIAL SQ SCH ×4 (07:30→21:00)
[2021-02-20] MEDS: DULOXETINE HCL 30 MG DELAYED RELEASE PO SCH (07:31)
[2021-02-20] MEDS: LISINOPRIL 10 MG TAB PO SCH (07:31)
[2021-02-20] MEDS: OXYBUTYNIN CHLORIDE 5 MG TAB PO SCH ×2 (07:31→16:43)
[2021-02-20] MEDS: LEVOTHYROXINE SODIUM 75 MCG TAB PO SCH (07:31)
[2021-02-20] MEDS: ASPIRIN 81 MG CHEW TAB PO SCH (07:31)
[2021-02-20] MEDS: MEROPENEM 1 GM in SODIUM CHLORIDE 0.9% 100 ML IV SCH ×2 (07:35→21:00)
[2021-02-20] MEDS: POLYETHYLENE GLYCOL 3350 17 GM PACK PO SCH (09:00)
[2021-02-20] MEDS ORDERED: ACETAMINOPHEN 325 MG TAB PO PRN ×2 (09:30)
[2021-02-20 10:18] LABS: BASOPHILS # (AUTO) 0.1 (0.0-0.1); BASOPHILS % 0.7 % (0.0-1.0); EOSINOPHILS # (AUTO) 0.5 (0.0-0.4); EOSINOPHILS % 6.9 % (0.0-6.0); HEMATOCRIT 27.2 % (34.2-44.1); HEMOGLOBIN 8.5 g/dL (12.0-16.0); LYMPHOCYTES # (AUTO) 1.6 (1.0-3.2); LYMPHOCYTES % 22.3 % (18.0-39.1); MEAN CORPUSCULAR HEMOGLOBIN 30.2 pg (28-32); MEAN CORPUSCULAR HGB CONC 31.3 g/dL (31-35); MEAN CORPUSCULAR VOLUME 96.8 fL (81-99); MONOCYTES # (AUTO) 0.5 (0.2-0.8); MONOCYTES % 6.8 % (4.4-11.3); NEUTROPHILS # (AUTO) 4.4 (2.1-6.9); NEUTROPHILS % 62.2 % (38.7-80.0); PLATELET COUNT 230 x10e3/uL (140-360); RED BLOOD COUNT 2.81 x10e6/uL (3.6-5.1); RED CELL DISTRIBUTION WIDTH 15.2 % (11.7-14.4)
[2021-02-20] MEDS ORDERED: PEG (High)/E-LYTE SOLN 4,000 ML BTL PO ONE (14:00)
[2021-02-20] MEDS: IRON SUCROSE 100 MG in SODIUM CHLORIDE 0.9% 100 ML 100 ML IV SCH (15:30)
[2021-02-20] MEDS: AMITRIPTYLINE HCL 25 MG TAB PO SCH (21:00)
[2021-02-20] MEDS: ATORVASTATIN 20 MG TAB PO SCH (21:00)
[2021-02-20] MEDS ORDERED: BISACODYL 5 MG TAB EC PO ONE ×2 (23:15→23:45)
[2021-02-21] VITALS (8 sets, daily range): BP systolic 120–156; BP diastolic 42–63
[2021-02-21] MEDS ORDERED: BISACODYL 5 MG TAB EC PO ONE (00:15)
[2021-02-21] MEDS ORDERED: CITRATE OF MAGNESIA 300ML BOTTLE PO ONE (01:00)
[2021-02-21] MEDS: Morphine 2mg Syringe 2 MG/ML SYR IV PRN ×3 (01:45→21:00)
[2021-02-21] MEDS ORDERED: ONDANSETRON HCL INJ 2MG/ML 2ML 2 MG/ML VIAL IV PRN (01:45)
[2021-02-21] MEDS ORDERED: ONDANSETRON HCL INJ 2MG/ML 2ML 2 MG/ML VIAL IV ONE (01:45)
[2021-02-21] MEDS: GABAPENTIN 400 MG CAP PO SCH ×3 (06:00→22:00)
[2021-02-21] MEDS: MORPHINE SULFATE 15MG TAB CR PO SCH ×3 (06:00→22:00)
[2021-02-21] MEDS: INSULIN LISPRO 100 UNIT/1 ML 3ML VIAL SQ SCH ×5 (07:30→20:43)
[2021-02-21] MEDS: OXYBUTYNIN CHLORIDE 5 MG TAB PO SCH ×2 (08:52→16:46)
[2021-02-21] MEDS: ASPIRIN 81 MG CHEW TAB PO SCH (08:52)
[2021-02-21] MEDS: DULOXETINE HCL 30 MG DELAYED RELEASE PO SCH (08:52)
[2021-02-21] MEDS: LEVOTHYROXINE SODIUM 75 MCG TAB PO SCH (08:52)
[2021-02-21] MEDS: POLYETHYLENE GLYCOL 3350 17 GM PACK PO SCH (08:52)
[2021-02-21] MEDS: LISINOPRIL 10 MG TAB PO SCH (08:52)
[2021-02-21] MEDS: MEROPENEM 1 GM in SODIUM CHLORIDE 0.9% 100 ML IV SCH ×2 (08:58→20:43)
[2021-02-21] MEDS ORDERED: INSULIN GLARGINE SQ SCH (09:30)
[2021-02-21] MEDS: IRON SUCROSE 100 MG in SODIUM CHLORIDE 0.9% 100 ML 100 ML IV SCH (10:25)
[2021-02-21] MEDS ORDERED: LIDOCAINE HCL 2% LOCAL INJ 5 ML SDV VIAL INJ ONE (12:14)
[2021-02-21] MEDS ORDERED: PROPOFOL IV EMULSION 10 MG/ML 20 ML VIAL ONE (12:14)
[2021-02-21] MEDS: TIZANIDINE HCL 4 MG TAB PO SCH ×2 (13:14→22:00)
[2021-02-21] MEDS ORDERED: INSULIN LISPRO 100 UNIT/1 ML 3ML VIAL SQ SCH (16:30)
[2021-02-21] MEDS: INSULIN GLARGINE 100 UNITS/ML VIAL SQ SCH (16:46)
[2021-02-21] MEDS: PUMPKIN SEED EXTRACT PO SCH (17:00)
[2021-02-21] MEDS: SOY GERM PO SCH (17:00)
[2021-02-21] MEDS: [UNRECOGNIZED DRUG - OTHER] PO SCH (17:00)
[2021-02-21 17:11] LABS: FREE T4 (FREE THYROXINE) 1.13 ng/dL (0.8-1.8); THYROID STIMULATING HORMONE 4.358 uIU/mL (0.350-4.940)
[2021-02-21] MEDS: AMITRIPTYLINE HCL 25 MG TAB PO SCH (20:43)
[2021-02-21] MEDS: ATORVASTATIN 20 MG TAB PO SCH (20:43)
[2021-02-22] VITALS (7 sets, daily range): BP systolic 112–180; BP diastolic 48–138
[2021-02-22] MEDS: GABAPENTIN 400 MG CAP PO SCH (05:31)
[2021-02-22] MEDS: TIZANIDINE HCL 4 MG TAB PO SCH (05:31)
[2021-02-22] MEDS: MORPHINE SULFATE 15MG TAB CR PO SCH (05:31)
[2021-02-22] MEDS: INSULIN LISPRO 100 UNIT/1 ML 3ML VIAL SQ SCH ×3 (07:30→11:30)
[2021-02-22] MEDS ORDERED: INSULIN LISPRO 100 UNIT/1 ML 3ML VIAL SQ SCH ×2 (07:30)
[2021-02-22] MEDS ORDERED: SODIUM CHLORIDE 0.9% 100 ML ONE (07:47)
[2021-02-22] MEDS: [UNRECOGNIZED DRUG - OTHER] PO SCH (08:05)
[2021-02-22] MEDS: SOY GERM PO SCH (08:05)
[2021-02-22] MEDS: POLYETHYLENE GLYCOL 3350 17 GM PACK PO SCH (08:05)
[2021-02-22] MEDS: PUMPKIN SEED EXTRACT PO SCH (08:05)
[2021-02-22] MEDS: DULOXETINE HCL 30 MG DELAYED RELEASE PO SCH (08:12)
[2021-02-22] MEDS: MEROPENEM 1 GM in SODIUM CHLORIDE 0.9% 100 ML IV SCH (08:12)
[2021-02-22] MEDS: LEVOTHYROXINE SODIUM 75 MCG TAB PO SCH (08:12)
[2021-02-22] MEDS: OXYBUTYNIN CHLORIDE 5 MG TAB PO SCH (08:12)
[2021-02-22] MEDS: ASPIRIN 81 MG CHEW TAB PO SCH (08:12)
[2021-02-22] MEDS: LISINOPRIL 10 MG TAB PO SCH (08:13)
[2021-02-22] MEDS: INSULIN GLARGINE 100 UNITS/ML VIAL SQ SCH (08:16)
[2021-02-22] MEDS ORDERED: MULTIVITAMINS/MINERALS TAB PO SCH (09:00)
[2021-02-22] MEDS ORDERED: LISINOPRIL 10 MG TAB PO SCH (09:00)
[2021-02-22] MEDS: IRON SUCROSE 100 MG in SODIUM CHLORIDE 0.9% 100 ML 100 ML IV SCH (09:35)
[2021-02-22] MEDS ORDERED: INSULIN GLARGINE 100 UNITS/ML VIAL SQ SCH (17:00)
== END 2021-02-22 17:27 | disposition home or self-care (01) | DRG 699 ==
LOC: ER 14:39 → ERHOLD 17:01 → MED/SURG2 21:28
PROVIDERS: ADMIT Internal Medicine; ATTEND Internal Medicine
PROC: 30233N1 Transfusion of Nonautologous Red Blood Cells into Peripheral Vein, Percutaneous Approach (ICD-10-PCS; 2021-02-17)
PROC: 0T2BX0Z Change Drainage Device in Bladder, External Approach (ICD-10-PCS; 2021-02-18)
PROC: 02HV33Z Insertion of Infusion Device into Superior Vena Cava, Percutaneous Approach (ICD-10-PCS; 2021-02-20)
PROC: 0DB68ZX Excision of Stomach, Via Natural or Artificial Opening Endoscopic, Diagnostic (ICD-10-PCS; 2021-02-21)
PROC: 0DB58ZX Excision of Esophagus, Via Natural or Artificial Opening Endoscopic, Diagnostic (ICD-10-PCS; principal; 2021-02-21 11:00)
DX: T83.510A Infection and inflammatory reaction due to cystostomy catheter, initial encounter (principal); N39.0 Urinary tract infection, site not specified; G82.20 Paraplegia, unspecified; N17.9 Acute kidney failure, unspecified; E87.1 Hypo-osmolality and hyponatremia; G93.49 Other encephalopathy; E87.5 Hyperkalemia; E03.9 Hypothyroidism, unspecified; E11.42 Type 2 diabetes mellitus with diabetic polyneuropathy; D13.0 Benign neoplasm of esophagus; K29.70 Gastritis, unspecified, without bleeding; I10 Essential (primary) hypertension; G89.4 Chronic pain syndrome; G83.9 Paralytic syndrome, unspecified; N31.9 Neuromuscular dysfunction of bladder, unspecified; T14.8XXS Other injury of unspecified body region, sequela; D63.8 Anemia in other chronic diseases classified elsewhere; D50.9 Iron deficiency anemia, unspecified; Z82.49 Family history of ischemic heart disease and other diseases of the circulatory system; Z90.49 Acquired absence of other specified parts of digestive tract; F41.9 Anxiety disorder, unspecified; B96.20 Unspecified Escherichia coli [E. coli] as the cause of diseases classified elsewhere; B96.5 Pseudomonas (aeruginosa) (mallei) (pseudomallei) as the cause of diseases classified elsewhere; Z79.4 Long term (current) use of insulin; E66.9 Obesity, unspecified; Z68.39 Body mass index [BMI] 39.0-39.9, adult; N30.90 Cystitis, unspecified without hematuria
CPT/HCPCS: 36415; 36569; 43239; 71045; 80048; 80053; 80202; 81001; 82270; 82550; 82553; 82607; 82728; 82746; 82948; 83036; 83540; 83605; 83735; 84439; 84443; 84466; 84484; 85025; 85045; 86850; 86900; 86920; 87040; 87086; 87186; 88305; 88312; 93005; 94799; 97139; 99284; J1756; J1815; J2001; J2185; J2270; J2405; J3370; J7030; J7050; P9016; U0002

== ENCOUNTER → 2021-05-18 | Day surgery (SDC) | payer MEDICARE, OTHER ==
[2021-05-16 15:35] LABS: BASOPHILS % 0.6 % (0.0-1.0); EOSINOPHILS # (AUTO) 0.4 (0.0-0.4); EOSINOPHILS % 5.1 % (0.0-6.0); HEMATOCRIT 39.7 % (34.2-44.1); HEMOGLOBIN 12.1 g/dL (12.0-16.0); LYMPHOCYTES # (AUTO) 1.8 (1.0-3.2); LYMPHOCYTES % 26.4 % (18.0-39.1); MEAN CORPUSCULAR HEMOGLOBIN 28.2 pg (28-32); MEAN CORPUSCULAR HGB CONC 30.5 g/dL (31-35); MEAN CORPUSCULAR VOLUME 92.5 fL (81-99); MONOCYTES # (AUTO) 0.4 (0.2-0.8); MONOCYTES % 5.3 % (4.4-11.3); NEUTROPHILS # (AUTO) 4.2 (2.1-6.9); PLATELET COUNT 167 x10e3/uL (140-360); RED BLOOD COUNT 4.29 x10e6/uL (3.6-5.1); RED CELL DISTRIBUTION WIDTH 13.2 % (11.7-14.4)
[2021-05-16 15:52] LABS: ANION GAP 15.7 mmol/L (8-16); CALCIUM 9.1 mg/dL (8.4-10.2); CREATININE, SERUM 0.87 mg/dL (0.57-1.11); POTASSIUM 4.7 mmol/L (3.5-5.1)
[~2021-05-18] MED LIST changes: +B&O 60MG R/S 60 MG SUPP PR ONE; +BOTULINUM TOXIN TYPE A 100 UNIT VIAL IM ONE; +DEXAMETHASONE SOD PHOS INJ 4 MG/ML SDV ONE; +DEXTROSE 5% 250ML 250 ML IV ONE; +EPHEDRINE SULFATE INJ 50 MG/ML VIAL ONE; +FENTANYL CITRATE/PF 100MCG/2 ML INJ ONE; +GENTAMICIN 80MG/NS 100 ML 200 ML IV ONE; +IOPAMIDOL 300MG/ML 50ML INFUS..BTL IV ONE; +LIDOCAINE HCL 2% LOCAL INJ 5 ML SDV VIAL INJ ONE; +METOCLOPRAMIDE HCL 10 MG/2ML VIAL ONE; +MIDAZOLAM HCL 2 MG/2 ML VIAL ONE; +MORPHINE SULFAT15 M1 PO; +MYLANTA GAS MIN42 MG PO; +ONDANSETRON HCL INJ 2MG/ML 2ML 2 MG/ML VIAL ONE; +POVIDONE IODINE 0.05% 0.05 % ML PO ONE; +PROPOFOL IV EMULSION 10 MG/ML 20 ML VIAL ONE; +SEVOFLURANE INHAL SOLN 250 ML PEN BTL ONE
[2021-05-18 10:45] VITALS: BP 130/78
== END | disposition home or self-care (01) ==
LOC: OR 07:20
PROVIDERS: ATTEND Urology
DX: N39.46 Mixed incontinence (principal); N39.0 Urinary tract infection, site not specified; Z43.5 Encounter for attention to cystostomy; N81.10 Cystocele, unspecified; N81.6 Rectocele; N36.41 Hypermobility of urethra; R35.1 Nocturia; R81 Glycosuria; N31.9 Neuromuscular dysfunction of bladder, unspecified; N81.89 Other female genital prolapse; N95.2 Postmenopausal atrophic vaginitis; G83.9 Paralytic syndrome, unspecified; I10 Essential (primary) hypertension; E78.5 Hyperlipidemia, unspecified; E03.9 Hypothyroidism, unspecified; E11.9 Type 2 diabetes mellitus without complications; E66.9 Obesity, unspecified; K21.9 Gastro-esophageal reflux disease without esophagitis; F41.9 Anxiety disorder, unspecified; F32.A Depression, unspecified; Z01.812 Encounter for preprocedural laboratory examination; Z01.818 Encounter for other preprocedural examination; Z20.822 Contact with and (suspected) exposure to COVID-19; Z79.82 Long term (current) use of aspirin; Z79.4 Long term (current) use of insulin; Z79.899 Other long term (current) drug therapy; Z68.41 Body mass index [BMI] 40.0-44.9, adult; Z87.828 Personal history of other (healed) physical injury and trauma; Z98.890 Other specified postprocedural states; Z80.52 Family history of malignant neoplasm of bladder
CPT/HCPCS: 36415 ×2; 51705; 52005; 52287; 71046; 74420; 80048; 82948; 85025; 87086; 87186; C1758; C1769; J0587; J1100; J1580; J2001; J2250; J2405; J2704; J2765; J3010; J7070; Q9967; U0002

== ENCOUNTER → 2021-08-07 | Outpatient (CLI) | payer MEDICARE, OTHER ==
[~2021-08-07] MED LIST changes: -B&O 60MG R/S 60 MG SUPP PR ONE; -BOTULINUM TOXIN TYPE A 100 UNIT VIAL IM ONE; -DEXAMETHASONE SOD PHOS INJ 4 MG/ML SDV ONE; -DEXTROSE 5% 250ML 250 ML IV ONE; -EPHEDRINE SULFATE INJ 50 MG/ML VIAL ONE; -FENTANYL CITRATE/PF 100MCG/2 ML INJ ONE; -GENTAMICIN 80MG/NS 100 ML 200 ML IV ONE; -IOPAMIDOL 300MG/ML 50ML INFUS..BTL IV ONE; -LIDOCAINE HCL 2% LOCAL INJ 5 ML SDV VIAL INJ ONE; -METOCLOPRAMIDE HCL 10 MG/2ML VIAL ONE; -MIDAZOLAM HCL 2 MG/2 ML VIAL ONE; -ONDANSETRON HCL INJ 2MG/ML 2ML 2 MG/ML VIAL ONE; -POVIDONE IODINE 0.05% 0.05 % ML PO ONE; -PROPOFOL IV EMULSION 10 MG/ML 20 ML VIAL ONE; -SEVOFLURANE INHAL SOLN 250 ML PEN BTL ONE
== END ==
LOC: MAMMO 12:52
PROVIDERS: ATTEND Internal Medicine
DX: Z12.31 Encounter for screening mammogram for malignant neoplasm of breast (principal); Z13.820 Encounter for screening for osteoporosis
CPT/HCPCS: 77067; 77080

== ENCOUNTER → 2021-10-19 | Day surgery (SDC) | payer MEDICARE, OTHER ==
[2021-10-17 16:09] LABS: BASOPHILS % 0.5 % (0.0-1.0); EOSINOPHILS # (AUTO) 0.4 (0.0-0.4); EOSINOPHILS % 5.3 % (0.0-6.0); HEMATOCRIT 37.4 % (34.2-44.1); HEMOGLOBIN 11.5 g/dL (12.0-16.0); LYMPHOCYTES # (AUTO) 1.6 (1.0-3.2); LYMPHOCYTES % 18.8 % (18.0-39.1); MEAN CORPUSCULAR HGB CONC 30.7 g/dL (31-35); MEAN CORPUSCULAR VOLUME 91.2 fL (81-99); MONOCYTES # (AUTO) 0.5 (0.2-0.8); MONOCYTES % 5.8 % (4.4-11.3); NEUTROPHILS # (AUTO) 5.7 (2.1-6.9); NEUTROPHILS % 69.4 % (38.7-80.0); PLATELET COUNT 267 x10e3/uL (140-360); RED CELL DISTRIBUTION WIDTH 12.5 % (11.7-14.4)
[2021-10-17 16:12] LABS: ANION GAP 11.8 mmol/L (8-16); CALCIUM 8.6 mg/dL (8.4-10.2); CREATININE, SERUM 1.16 mg/dL (0.57-1.11); POTASSIUM 4.8 mmol/L (3.5-5.1)
[~2021-10-19] MED LIST changes: +B&O 60MG R/S 60 MG SUPP PR ONE; +BOTULINUM TOXIN TYPE A 100 UNIT VIAL IM ONE; +BUSPIRONE HCL10 MG PO; +CEFTRIAXONE 1 GM VIAL ONE; +FENTANYL CITRATE/PF 100MCG/2 ML INJ ONE; +FLUCONAZOLE 200 MG/100 ML 100 ML IV ONE; +GENTAMICIN 80MG/NS 100 ML 200 ML IV ONE; +IOPAMIDOL 610MG/1ML 300 MG/ML VIAL IV ONE; +LIDOCAINE HCL 2% LOCAL INJ 5 ML SDV VIAL INJ ONE; +MIDAZOLAM HCL 2 MG/2 ML VIAL ONE; +ONDANSETRON HCL INJ 2MG/ML 2ML 2 MG/ML VIAL ONE; +POVIDONE IODINE 0.05% 0.05 % ML PO ONE; +PROPOFOL IV EMULSION 10 MG/ML 20 ML VIAL ONE; +SEVOFLURANE INHAL SOLN 250 ML PEN BTL ONE
[2021-10-19 16:00] VITALS: BP 117/53
== END | disposition home or self-care (01) ==
LOC: OR 11:47
PROVIDERS: ATTEND Urology
DX: N39.41 Urge incontinence (principal); N39.0 Urinary tract infection, site not specified; Z43.5 Encounter for attention to cystostomy; N81.10 Cystocele, unspecified; N36.41 Hypermobility of urethra; N81.6 Rectocele; N95.2 Postmenopausal atrophic vaginitis; E11.22 Type 2 diabetes mellitus with diabetic chronic kidney disease; I12.9 Hypertensive chronic kidney disease with stage 1 through stage 4 chronic kidney disease, or unspecified chronic kidney disease; N18.9 Chronic kidney disease, unspecified; E03.9 Hypothyroidism, unspecified; K21.9 Gastro-esophageal reflux disease without esophagitis; E78.5 Hyperlipidemia, unspecified; M06.9 Rheumatoid arthritis, unspecified; M19.90 Unspecified osteoarthritis, unspecified site; F41.9 Anxiety disorder, unspecified; Z01.810 Encounter for preprocedural cardiovascular examination; Z01.812 Encounter for preprocedural laboratory examination; Z20.822 Contact with and (suspected) exposure to COVID-19; Z79.4 Long term (current) use of insulin; Z79.82 Long term (current) use of aspirin; Z79.899 Other long term (current) drug therapy
CPT/HCPCS: 0223U; 36415; 74420; 80048; 82948; 85025; 93005; C1758; J0587; J0696; J1450; J1580; J2001; J2250; J2405; J3010

== ENCOUNTER 2022-06-03 14:36 | Emergency (ER) | payer MEDICARE, OTHER ==
[~2022-06-03] VITALS: Ht 162.6 cm; Wt 104.3 kg
[~2022-06-03 14:36] MED LIST changes: -B&O 60MG R/S 60 MG SUPP PR ONE; -BOTULINUM TOXIN TYPE A 100 UNIT VIAL IM ONE; -CEFTRIAXONE 1 GM VIAL ONE; -FENTANYL CITRATE/PF 100MCG/2 ML INJ ONE; -FLUCONAZOLE 200 MG/100 ML 100 ML IV ONE; -GENTAMICIN 80MG/NS 100 ML 200 ML IV ONE; -IOPAMIDOL 610MG/1ML 300 MG/ML VIAL IV ONE; -LIDOCAINE HCL 2% LOCAL INJ 5 ML SDV VIAL INJ ONE; -MIDAZOLAM HCL 2 MG/2 ML VIAL ONE; -ONDANSETRON HCL INJ 2MG/ML 2ML 2 MG/ML VIAL ONE; -POVIDONE IODINE 0.05% 0.05 % ML PO ONE; -PROPOFOL IV EMULSION 10 MG/ML 20 ML VIAL ONE; -SEVOFLURANE INHAL SOLN 250 ML PEN BTL ONE
== END 2022-06-03 17:05 | disposition home or self-care (01) ==
LOC: ER 15:06
DX: T83.090A Other mechanical complication of cystostomy catheter, initial encounter (principal); R33.8 Other retention of urine; M19.91 Primary osteoarthritis, unspecified site; E03.9 Hypothyroidism, unspecified; F41.9 Anxiety disorder, unspecified; F32.A Depression, unspecified; G89.29 Other chronic pain; G62.9 Polyneuropathy, unspecified
CPT/HCPCS: 99283

== ENCOUNTER 2022-07-26 21:33 | Emergency (ER) | payer MEDICARE, OTHER ==
[~2022-07-26] VITALS: Ht 162.6 cm; Wt 104.3 kg
[2022-07-26 22:03] LABS: BASOPHILS # (AUTO) 0.1 (0.0-0.1); BASOPHILS % 0.7 % (0.0-1.0); EOSINOPHILS % 0.1 % (0.0-6.0); HEMATOCRIT 33.9 % (34.2-44.1); HEMOGLOBIN 11.3 g/dL (12.0-16.0); LYMPHOCYTES # (AUTO) 1.5 (1.0-3.2); LYMPHOCYTES % 21.9 % (18.0-39.1); MEAN CORPUSCULAR HEMOGLOBIN 28.5 pg (28-32); MEAN CORPUSCULAR HGB CONC 33.3 g/dL (31-35); MEAN CORPUSCULAR VOLUME 85.6 fL (81-99); MONOCYTES # (AUTO) 0.3 (0.2-0.8); MONOCYTES % 4.4 % (4.4-11.3); NEUTROPHILS % 72.6 % (38.7-80.0); PLATELET COUNT 253 x10e3/uL (140-360); RED BLOOD COUNT 3.96 x10e6/uL (3.6-5.1); RED CELL DISTRIBUTION WIDTH 12.6 % (11.7-14.4)
[2022-07-26 22:21] LABS: CLARITY,URINE CLOUDY (CLEAR); COLOR,URINE YELLOW (YELLOW); KETONES,URINE NEGATIVE (NEGATIVE); LEUKOCYTE ESTERASE ,URINE MODERATE (NEGATIVE); NITRITE,URINE POSITIVE (NEGATIVE); PROTEIN,URINE DIPSTICK NEGATIVE (NEGATIVE); URINE UROBILINOGEN 1 mg/dL (0.2 - 1)
[2022-07-26 22:23] LABS: ALBUMIN 3.4 g/dL (3.5-5.0); ALBUMIN/GLOBULIN RATIO 0.9 (0.8-2.0); ANION GAP 17.9 mmol/L (8-16); CALCIUM 9.2 mg/dL (8.4-10.2); CREATININE, SERUM 0.87 mg/dL (0.57-1.11); POTASSIUM 3.9 mmol/L (3.5-5.1)
[2022-07-26 22:27] LABS: AMORPHOUS SEDIMENT,URINE MODERATE (FEW); BACTERIA,URINE MANY /HPF; EPITHELIAL CELLS,URINE FEW /LPF; WBC,URINE (MAN) 21-50 /HPF (0-5)
[2022-07-26 22:29] LABS: CREATINE KINASE MB 2.2 ng/mL (0-5.0)
[2022-07-26] MEDS ORDERED: ONDANSETRON HCL INJ 2MG/ML 2ML 2 MG/ML VIAL IV STA (22:57)
[2022-07-26] MEDS ORDERED: Morphine 4mg INJECTION 4 MG/ML INJ IV ONE (23:00)
[2022-07-27] MEDS ORDERED: Morphine 4mg INJECTION 4 MG/ML INJ IV ONE (00:15)
[2022-07-27] MEDS ORDERED: ONDANSETRON ODT4 MG PO (01:06)
[2022-07-27 01:33] VITALS: BP 145/74
== END 2022-07-27 01:30 | disposition home or self-care (01) ==
LOC: ER 21:40
DX: R50.9 Fever, unspecified (principal); R11.2 Nausea with vomiting, unspecified; R10.10 Upper abdominal pain, unspecified; I10 Essential (primary) hypertension; E11.65 Type 2 diabetes mellitus with hyperglycemia; E11.40 Type 2 diabetes mellitus with diabetic neuropathy, unspecified; E03.9 Hypothyroidism, unspecified; F41.9 Anxiety disorder, unspecified; F32.A Depression, unspecified; M54.9 Dorsalgia, unspecified; G89.29 Other chronic pain; Z20.822 Contact with and (suspected) exposure to COVID-19; R94.31 Abnormal electrocardiogram [ECG] [EKG]
CPT/HCPCS: 36415; 71045; 74176; 80053; 81001; 82550; 82553; 83690; 84484; 85025; 87086; 87186; 93005; 99284; J2270 ×2; J2405; U0002

== ENCOUNTER 2023-11-16 20:27 | Inpatient (IN) | payer MEDICARE, OTHER ==
[~2023-11-16] VITALS: Ht 162.6 cm; Wt 104.3 kg
[~2023-11-16 20:27] MED LIST changes: +ONDANSETRON ODT4 MG PO
[2023-11-16] MEDS ORDERED: SODIUM CHLORIDE FLUSH 10 ML SYR INJ PRN (20:30)
[2023-11-16] MEDS ORDERED: DEXTROSE 50% SYRINGE 50 ML IV ONE (20:36)
[2023-11-16] MEDS: DEXTROSE 50% SYRINGE 50 ML IV STA (20:38)
[2023-11-16 20:47] VITALS: TEMP 97.7
[2023-11-16 20:52] LABS: BASOPHILS % 0.5 % (0.0-1.0); EOSINOPHILS % 0.1 % (0.0-6.0); HEMATOCRIT 43.4 % (34.2-44.1); HEMOGLOBIN 13.7 g/dL (12.0-16.0); LYMPHOCYTES # (AUTO) 0.7 (1.0-3.2); LYMPHOCYTES % 8.9 % (18.0-39.1); MEAN CORPUSCULAR HEMOGLOBIN 27.6 pg (28-32); MEAN CORPUSCULAR HGB CONC 31.6 g/dL (31-35); MEAN CORPUSCULAR VOLUME 87.3 fL (81-99); MONOCYTES # (AUTO) 0.3 (0.2-0.8); MONOCYTES % 3.8 % (4.4-11.3); NEUTROPHILS # (AUTO) 6.4 (2.1-6.9); NEUTROPHILS % 86.6 % (38.7-80.0); PLATELET COUNT 294 x10e3/uL (140-360); RED BLOOD COUNT 4.97 x10e6/uL (3.6-5.1); RED CELL DISTRIBUTION WIDTH 13.9 % (11.7-14.4); WHITE BLOOD COUNT 7.43 x10e3/uL (4.8-10.8)
[2023-11-16] MEDS: DEXTROSE 5%/0.45% SOD CHL 1,000 ML IV ONE (20:58)
[2023-11-16 21:11] LABS: ALBUMIN 3.3 g/dL (3.5-5.0); ALBUMIN/GLOBULIN RATIO 0.9 (0.8-2.0); ANION GAP 17.1 mmol/L (8-16); BILIRUBIN,TOTAL 0.4 mg/dL (0.2-1.2); CALCIUM 9.6 mg/dL (8.4-10.2); CREATININE, SERUM 0.77 mg/dL (0.57-1.11); TOTAL PROTEIN 7.1 g/dL (6.5-8.1)
[2023-11-16 21:16] LABS: POTASSIUM 3.1 mmol/L (3.5-5.1)
[2023-11-16 22:01] VITALS: PULSE 71; RESP 16; O2SAT 94
[2023-11-16 23:10] LABS: CLARITY,URINE CLOUDY (CLEAR); COLOR,URINE YELLOW (YELLOW); GLUCOSE, URINE 500 (NEGATIVE); LEUKOCYTE ESTERASE ,URINE 1+ (NEGATIVE); NITRITE,URINE POSITIVE (NEGATIVE); PH,URINE 5.5 (5 - 7); PROTEIN,URINE DIPSTICK 1+ (NEGATIVE)
[2023-11-16 23:11] LABS: BILIRUBIN,URINE NEGATIVE (NEGATIVE); KETONES,URINE 2+ (NEGATIVE); URINE UROBILINOGEN 0.2 mg/dL (0.2 - 1)
[2023-11-16 23:17] LABS: BACTERIA,URINE MANY /HPF; WBC,URINE (MAN) >50 /HPF (0-5)
[2023-11-16 23:18] LABS: EPITHELIAL CELLS,URINE FEW /LPF
[2023-11-16] MEDS ORDERED: DEXTROSE 50% SYRINGE 50 ML IV PRN (23:30)
[2023-11-17] VITALS (10 sets, daily range): BP systolic 141–196; BP diastolic 56–98; PULSE 67–90; RESP 15–18; TEMP 97.5–98.3; O2SAT 98–100
[2023-11-17] MEDS: HYDRALAZINE HCL 20 MG/ML VIAL IV PRN (00:45)
[2023-11-17] MEDS: SODIUM CHLORIDE 0.9% 1000ML 1,000 ML IV ONE (00:46)
[2023-11-17] MEDS ORDERED: OXYBUTYNIN CHL2.5 MG PO (02:05)
[2023-11-17] MEDS ORDERED: MELATONIN3 MG PO (02:05)
[2023-11-17] MEDS ORDERED: BUSPIRONE HCL10 MG PO (02:05)
[2023-11-17] MEDS ORDERED: PEPCID20 MG PO (02:05)
[2023-11-17] MEDS ORDERED: ALPRAZOLAM0.25 M1 PO (02:05)
[2023-11-17] MEDS ORDERED: SERTRALINE HCL50 MG PO (02:06)
[2023-11-17] MEDS ORDERED: SERTRALINE HCL100 MG PO (02:06)
[2023-11-17] MEDS ORDERED: [UNRECOGNIZED DRUG - OTHER] PO (02:07)
[2023-11-17] MEDS ORDERED: BUSPIRONE HCL 10 MG TABLET PO PRN ×2 (03:00→03:30)
[2023-11-17] MEDS: MORPHINE SULFATE IR 15 MG TABLET PO PRN (03:23)
[2023-11-17] MEDS: POTASSIUM CHLORIDE 10MEQ EA PO ONE ×2 (03:23→06:54)
[2023-11-17 05:58] LABS: BASOPHILS # (AUTO) 0.1 (0.0-0.1); BASOPHILS % 0.5 % (0.0-1.0); EOSINOPHILS # (AUTO) 0.1 (0.0-0.4); EOSINOPHILS % 0.9 % (0.0-6.0); HEMATOCRIT 37.4 % (34.2-44.1); HEMOGLOBIN 11.9 g/dL (12.0-16.0); LYMPHOCYTES # (AUTO) 1.4 (1.0-3.2); LYMPHOCYTES % 13.8 % (18.0-39.1); MEAN CORPUSCULAR HEMOGLOBIN 27.8 pg (28-32); MEAN CORPUSCULAR HGB CONC 31.8 g/dL (31-35); MEAN CORPUSCULAR VOLUME 87.4 fL (81-99); MONOCYTES # (AUTO) 0.5 (0.2-0.8); NEUTROPHILS % 79.4 % (38.7-80.0); PLATELET COUNT 248 x10e3/uL (140-360); RED BLOOD COUNT 4.28 x10e6/uL (3.6-5.1); RED CELL DISTRIBUTION WIDTH 13.9 % (11.7-14.4); WHITE BLOOD COUNT 10.01 x10e3/uL (4.8-10.8)
[2023-11-17] MEDS ORDERED: MORPHINE SULFATE ER 15 MG TAB PO SCH (06:00)
[2023-11-17 06:25] LABS: ALBUMIN 2.8 g/dL (3.5-5.0); ALBUMIN/GLOBULIN RATIO 0.9 (0.8-2.0); ANION GAP 13.8 mmol/L (8-16); BILIRUBIN,TOTAL 0.3 mg/dL (0.2-1.2); CALCIUM 8.8 mg/dL (8.4-10.2); CREATININE, SERUM 0.79 mg/dL (0.57-1.11); TOTAL PROTEIN 5.9 g/dL (6.5-8.1)
[2023-11-17 06:31] LABS: POTASSIUM 2.8 mmol/L (3.5-5.1)
[2023-11-17] MEDS: INSULIN REGULAR, HUMAN 100 UNIT/1 ML SQ SCH (07:30)
[2023-11-17] MEDS: ALPRAZOLAM 0.25 MG TAB PO PRN (10:45)
[2023-11-17] MEDS: ONDANSETRON HCL INJ 2MG/ML 2ML 2 MG/ML VIAL IV PRN (10:45)
[2023-11-17] MEDS: SERTRALINE HCL 50 MG TAB PO SCH (10:46)
[2023-11-17] MEDS: GABAPENTIN 400 MG CAP PO SCH (10:47)
[2023-11-17] MEDS: ASPIRIN 81 MG CHEW TAB PO SCH (10:47)
[2023-11-17] MEDS: MORPHINE SULFATE ER 15 MG TAB PO SCH (10:48)
[2023-11-17] MEDS: TIZANIDINE HCL 4 MG TAB PO SCH (10:49)
[2023-11-17] MEDS: POLYETHYLENE GLYCOL 3350 17 GM PACK PO SCH (10:49)
[2023-11-17] MEDS: BISACODYL 10 MG SUPP PR ONE (10:49)
[2023-11-17] MEDS: LEVOTHYROXINE SODIUM 100 MCG TAB PO SCH (11:34)
[2023-11-17] MEDS ORDERED: HYDRALAZINE HCL 20 MG/ML VIAL IV PRN (18:00)
[2023-11-17] MEDS: LISINOPRIL 2.5 MG TAB PO SCH (18:45)
[2023-11-17] MEDS ORDERED: MELATONIN 5 MG TABLET PO PRN (21:00)
[2023-11-17] MEDS: INSULIN GLARGINE 100 UNITS/ML VIAL SQ SCH (21:00)
[2023-11-17] MEDS: ATORVASTATIN 20 MG TAB PO SCH (21:13)
[2023-11-17] MEDS: FAMOTIDINE 20 MG TAB PO SCH (21:13)
[2023-11-18] VITALS (7 sets, daily range): BP systolic 125–162; BP diastolic 53–73; PULSE 65–75; RESP 16–20; TEMP 97.8–98.7; O2SAT 97–100
[2023-11-18 06:32] LABS: BASOPHILS # (AUTO) 0.1 (0.0-0.1); BASOPHILS % 0.6 % (0.0-1.0); EOSINOPHILS # (AUTO) 0.4 (0.0-0.4); EOSINOPHILS % 5.7 % (0.0-6.0); HEMOGLOBIN 11.4 g/dL (12.0-16.0); LYMPHOCYTES # (AUTO) 1.5 (1.0-3.2); LYMPHOCYTES % 19.8 % (18.0-39.1); MEAN CORPUSCULAR HEMOGLOBIN 27.7 pg (28-32); MEAN CORPUSCULAR HGB CONC 30.8 g/dL (31-35); MEAN CORPUSCULAR VOLUME 89.8 fL (81-99); MONOCYTES # (AUTO) 0.4 (0.2-0.8); MONOCYTES % 5.2 % (4.4-11.3); NEUTROPHILS # (AUTO) 5.3 (2.1-6.9); NEUTROPHILS % 68.4 % (38.7-80.0); PLATELET COUNT 240 x10e3/uL (140-360); RED BLOOD COUNT 4.12 x10e6/uL (3.6-5.1); RED CELL DISTRIBUTION WIDTH 14.2 % (11.7-14.4); WHITE BLOOD COUNT 7.74 x10e3/uL (4.8-10.8)
[2023-11-18 07:10] LABS: ALBUMIN 2.7 g/dL (3.5-5.0); ALBUMIN/GLOBULIN RATIO 0.9 (0.8-2.0); ANION GAP 12.6 mmol/L (8-16); BILIRUBIN,TOTAL 0.4 mg/dL (0.2-1.2); CALCIUM 8.6 mg/dL (8.4-10.2); CREATININE, SERUM 0.79 mg/dL (0.57-1.11); POTASSIUM 3.6 mmol/L (3.5-5.1); TOTAL PROTEIN 5.6 g/dL (6.5-8.1)
[2023-11-19 00:37] VITALS: BP 165/61; PULSE 60; RESP 16; TEMP 98.2; O2SAT 98
[2023-11-19 03:54] VITALS: BP 177/72; PULSE 65; RESP 18; TEMP 98.2; O2SAT 100
[2023-11-19 05:24] LABS: BASOPHILS # (AUTO) 0.1 (0.0-0.1); BASOPHILS % 0.6 % (0.0-1.0); EOSINOPHILS # (AUTO) 0.7 (0.0-0.4); EOSINOPHILS % 8.8 % (0.0-6.0); HEMATOCRIT 36.8 % (34.2-44.1); HEMOGLOBIN 11.4 g/dL (12.0-16.0); LYMPHOCYTES # (AUTO) 1.7 (1.0-3.2); LYMPHOCYTES % 21.5 % (18.0-39.1); MEAN CORPUSCULAR HEMOGLOBIN 27.8 pg (28-32); MEAN CORPUSCULAR VOLUME 89.8 fL (81-99); MONOCYTES # (AUTO) 0.4 (0.2-0.8); MONOCYTES % 5.1 % (4.4-11.3); NEUTROPHILS # (AUTO) 5.1 (2.1-6.9); NEUTROPHILS % 63.7 % (38.7-80.0); PLATELET COUNT 218 x10e3/uL (140-360); RED CELL DISTRIBUTION WIDTH 14.2 % (11.7-14.4); WHITE BLOOD COUNT 7.97 x10e3/uL (4.8-10.8)
[2023-11-19 05:50] LABS: ALBUMIN 2.6 g/dL (3.5-5.0); ALBUMIN/GLOBULIN RATIO 0.9 (0.8-2.0); ANION GAP 7.7 mmol/L (8-16); BILIRUBIN,TOTAL 0.5 mg/dL (0.2-1.2); CALCIUM 8.5 mg/dL (8.4-10.2); CREATININE, SERUM 0.81 mg/dL (0.57-1.11); POTASSIUM 3.7 mmol/L (3.5-5.1); TOTAL PROTEIN 5.4 g/dL (6.5-8.1)
[2023-11-19 07:46] VITALS: BP 162/73; PULSE 81; RESP 18; TEMP 97.8; O2SAT 100
[2023-11-19] MEDS ORDERED: LISINOPRIL10 MG PO (08:07)
[2023-11-19] MEDS: LISINOPRIL 10 MG TAB PO SCH (08:31)
[2023-11-19 08:45] VITALS: BP 162/73; PULSE 81; RESP 18; TEMP 97.8; O2SAT 100
[2023-11-19 11:18] VITALS: BP 109/49; PULSE 75; RESP 18; TEMP 98.2; O2SAT 98
[2023-11-19] MEDS ORDERED: ONDANSETRON HCL 4 MG ORAL DISINTEGRATING TAB PO PRN (13:00)
[2023-11-19 15:48] VITALS: BP 148/56; PULSE 74; RESP 18; TEMP 97.8; O2SAT 100
== END 2023-11-19 18:37 | disposition home or self-care (01) | DRG 699 ==
LOC: ER 20:31 → ERHOLD 23:30 → MED/SURG2 11-17 01:05
PROVIDERS: ADMIT Family Medicine Adult Medicine; ATTEND Family Medicine Adult Medicine
DX: T83.511A Infection and inflammatory reaction due to indwelling urethral catheter, initial encounter (principal); Z16.24 Resistance to multiple antibiotics; N39.0 Urinary tract infection, site not specified; E11.649 Type 2 diabetes mellitus with hypoglycemia without coma; G93.89 Other specified disorders of brain; E03.9 Hypothyroidism, unspecified; S00.11XA Contusion of right eyelid and periocular area, initial encounter; N31.9 Neuromuscular dysfunction of bladder, unspecified; S00.12XA Contusion of left eyelid and periocular area, initial encounter; S00.83XA Contusion of other part of head, initial encounter; I10 Essential (primary) hypertension; F41.9 Anxiety disorder, unspecified; F32.A Depression, unspecified; M54.9 Dorsalgia, unspecified; M19.90 Unspecified osteoarthritis, unspecified site; E66.9 Obesity, unspecified; Z68.39 Body mass index [BMI] 39.0-39.9, adult; R33.9 Retention of urine, unspecified; D64.9 Anemia, unspecified; G31.9 Degenerative disease of nervous system, unspecified; E87.6 Hypokalemia; K59.03 Drug induced constipation; T40.2X5A Adverse effect of other opioids, initial encounter; W05.0XXA Fall from non-moving wheelchair, initial encounter; Z79.4 Long term (current) use of insulin; Z79.82 Long term (current) use of aspirin; Z79.890 Hormone replacement therapy; Z90.49 Acquired absence of other specified parts of digestive tract; Z98.1 Arthrodesis status; Z90.710 Acquired absence of both cervix and uterus
CPT/HCPCS: 36415; 70450; 71045; 72125; 80053; 81001; 82948; 83735; 84132; 84484; 85025; 87086; 87186; 93005; 94799; 99252; 99284; J0360; J2405; J2543; J7030; J7799

== ENCOUNTER 2023-12-22 21:19 | Emergency (ER) | payer MEDICARE, OTHER ==
[~2023-12-22] VITALS: Ht 315 cm; Wt 104.3 kg
[~2023-12-22 21:19] MED LIST changes: +ALPRAZOLAM0.25 M1 PO; +MELATONIN3 MG PO; +OXYBUTYNIN CHL2.5 MG PO; +PEPCID20 MG PO; +SERTRALINE HCL100 MG PO; +SERTRALINE HCL50 MG PO; +[UNRECOGNIZED DRUG - OTHER] PO
[2023-12-22 23:51] VITALS: PULSE 55; RESP 18; TEMP 97.9
[2023-12-22 23:58] LABS: BASOPHILS # (AUTO) 0.1 (0.0-0.1); BASOPHILS % 0.7 % (0.0-1.0); EOSINOPHILS # (AUTO) 0.2 (0.0-0.4); EOSINOPHILS % 2.5 % (0.0-6.0); HEMATOCRIT 39.7 % (34.2-44.1); HEMOGLOBIN 12.3 g/dL (12.0-16.0); LYMPHOCYTES # (AUTO) 1.9 (1.0-3.2); LYMPHOCYTES % 27.1 % (18.0-39.1); MEAN CORPUSCULAR HEMOGLOBIN 27.5 pg (28-32); MEAN CORPUSCULAR VOLUME 88.8 fL (81-99); MONOCYTES # (AUTO) 0.2 (0.2-0.8); MONOCYTES % 3.2 % (4.4-11.3); NEUTROPHILS # (AUTO) 4.7 (2.1-6.9); NEUTROPHILS % 66.4 % (38.7-80.0); PLATELET COUNT 280 x10e3/uL (140-360); RED BLOOD COUNT 4.47 x10e6/uL (3.6-5.1); RED CELL DISTRIBUTION WIDTH 13.7 % (11.7-14.4); WHITE BLOOD COUNT 7.09 x10e3/uL (4.8-10.8)
[2023-12-23 00:03] LABS: BILIRUBIN,URINE NEGATIVE (NEGATIVE); CLARITY,URINE HAZY (CLEAR); COLOR,URINE ORANGE (YELLOW); GLUCOSE, URINE 1+ (NEGATIVE); KETONES,URINE NEGATIVE (NEGATIVE); LEUKOCYTE ESTERASE ,URINE LARGE (NEGATIVE); NITRITE,URINE POSITIVE (NEGATIVE); PH,URINE 6 (5 - 7); PROTEIN,URINE DIPSTICK NEGATIVE (NEGATIVE); URINE UROBILINOGEN 1 mg/dL (0.2 - 1)
[2023-12-23 00:06] LABS: RBC,URINE 0-5 /HPF (0-5); WBC,URINE (MAN) >50 /HPF (0-5)
[2023-12-23 00:07] LABS: BACTERIA,URINE MANY /HPF; EPITHELIAL CELLS,URINE RARE /LPF; TRANSITIONAL EPI CELLS,URINE FEW; YEAST,URINE FEW
[2023-12-23 00:17] LABS: ALBUMIN 3.1 g/dL (3.5-5.0); ALBUMIN/GLOBULIN RATIO 0.8 (0.8-2.0); ANION GAP 14.8 mmol/L (8-16); BILIRUBIN,TOTAL 0.4 mg/dL (0.2-1.2); CALCIUM 8.7 mg/dL (8.4-10.2); CREATININE, SERUM 0.9 mg/dL (0.57-1.11); POTASSIUM 3.8 mmol/L (3.5-5.1); TOTAL PROTEIN 7.1 g/dL (6.5-8.1)
[2023-12-23 02:23] VITALS: BP 146/87; PULSE 67; RESP 19; TEMP 98.7; O2SAT 98
== END 2023-12-23 02:35 | disposition home or self-care (01) ==
LOC: ER 21:26
DX: R50.9 Fever, unspecified (principal); N39.0 Urinary tract infection, site not specified; I10 Essential (primary) hypertension; E11.65 Type 2 diabetes mellitus with hyperglycemia; E03.9 Hypothyroidism, unspecified; M19.90 Unspecified osteoarthritis, unspecified site; M54.9 Dorsalgia, unspecified; G89.29 Other chronic pain
CPT/HCPCS: 36415; 70450; 80053; 81001; 85025; 87086; 87186; 99284; J2543